=== PATIENT | female | born 1995 | race Caucasian/White ===

== ENCOUNTER 2019-11-11 13:33 | Emergency (ER) | payer SELFPAY ==
[2019-11-11 13:48] VITALS: BP 108/72; PULSE 118; RESP 16; TEMP 36.6; O2SAT 99; BMI 18.8
--- NOTE | 2019-11-11 14:16 | W.ED.NAVMDI ---
HPI - Nausea/Vomiting/Diarrhea General: Chief complaint: Nausea/Vomiting/Diarrhea Stated complaint: vomiting/abd pain Time Seen by Provider: 11/11/19 14:07 Source: patient Mode of arrival: ambulatory Limitations: no limitations History of Present Illness: HPI Narrative: Patient comes in today with complaints of nausea vomiting and diarrhea starting this morning. Patient reports last episode was about 1-1/2 hours ago. Patient appears mildly unwell. Patient does not know what she may be , patient is type I diabetic. Associated nausea: Yes Associated symtoms: Reports nausea Review of Systems General: Reports: 10 or more systems reviewed and unremarkable except in HPI and below GI: Reports: nausea and vomiting PFSH ED PFSH: Social History Smoking and tobacco status: former smoker Female Reproductive History: Date of last menstrual period: 09/18/19 Physical Exam Const: COMMON NORMALS: no apparent distress and oriented x3 GENERAL APPEARANCE: cooperative HENMT: COMMON NORMALS: normocephalic, external ears normal, EAC's normal, TM's normal bilaterally and external nose normal HEAD & SCALP: normal to inspection and normocephalic FACE & SINUS: normal facial exam NOSE: external nose normal GENERAL EAR: hearing not grossly impaired EXTERNAL EAR: Yes external ears normal EXTERNAL AUDITORY CANAL: EAC's normal TYMPANIC MEMBRANE: TM's normal bilaterally MOUTH: oral and palatal mucosa normal THROAT: posterior oropharynx normal Eye: COMMON NORMALS: PERRL and EOMs intact bilaterally PUPIL: Yes PERRL Neck/C-Spine: COMMON NORMALS: full ROM and no lymphadenopathy Lymph: LYMPHATIC: no lymphedema noted Chest: COMMONS NORMALS: inspection of chest normal and palpation of chest normal Resp: COMMON NORMALS: normal respiratory effort and clear to auscultation bilaterally AUSCULTATION: clear to auscultation bilaterally Cardio: COMMON NORMALS: regular rate and regular rhythm RATE: regular rate RHYTHM: regular rhythm GI: COMMON NORMALS: normal to inspection, nondistended, normoactive bowel sounds and non-tender : COMMON NORMALS: Yes no CVA tenderness BLADDER/KIDNEY EXAM: Yes no CVA tenderness Back/Pelvis: COMMON NORMALS: no CVA tenderness and thoracic and lumbar spine normal to inspection Extremity: COMMON NORMALS: normal to inspection GENERAL: No edema Neuro: COMMON NORMALS: oriented x3, moves all extremities and no focal motor deficits Psych: COMMON NORMALS: mental status grossly normal and cooperative Skin: COMMON NORMALS: no rashes or lesions noted GENERAL SKIN EXAM: no rashes or lesions noted Course Vital Signs: Vital signs: Vital Signs Temperature 98.1 F 11/11/19 15:34 Pulse Rate 120 H 11/11/19 15:34 Respiratory Rate 18 11/11/19 15:34 Blood Pressure 106/70 11/11/19 15:34 Pulse Oximetry 98 11/11/19 15:34 MDM - Nausea/Vomiting/Diarrhea MDM Narrative: Medical decision making narrative: Patient comes in with nausea vomiting diarrhea starting today. Exam notes abdomen soft nontender. Skin is warm and dry. Respirations are even lungs are clear to auscultation. Vital signs are normal except for mild elevation in pulse rate in the 110s. Differential diagnosis includes gastroenteritis, dehydration, diabetic ketoacidosis, UTI, . Laboratory values were significant for some mild elevation in white blood cell count and mild elevation in anion gap at 25. Urinalysis was clear except for some glucose. Blood sugar was 180s. Reviewed exam with patient recommended 1 L of IV fluids for mild dehydration. Patient was given Zofran for nausea. Patient had steady improvement after treatment. Reviewed post visit care and need for follow-up. Patient reports understanding agreed to plan. Lab Data: Labs: Lab Results 11/11/19 11/11/19 11/11/19 Range/Units 13:59 13:59 14:10 WBC 10.7 H (4.0-10.0) 10^3/ uL RBC 4.17 (4.1-5.3) 10^6/u L Hgb 13.4 (11.5-15.3) g/dL Hct 44.2 (37.0-47.0) % MCV 106.0 H (81-99) fL MCH 32.1 (28.0-34.0) pg MCHC 30.3 (30.0-36.0) g/dL RDW 13.3 (12.1-15.1) % Plt Count 94 L (130-400) 10^3/c mm MPV 12.4 H (7.4-10.4) fL Neut % (Auto) 76.6 % Lymph % (Auto) 14.8 % [place] % (Auto) 5.0 % Eos % (Auto) 2.3 % Baso % (Auto) 0.7 % Neut # (Auto) 8.2 H (1.8-7.7) 10^3/u L Lymph # (Auto) 1.6 (0.8-4.8) 10^3/u L [place] # (Auto) 0.5 (0.2-0.9) 10^3/u L Eos # (Auto) 0.3 (0.0-0.8) 10^3/u L Baso # (Auto) 0.1 (0.0-0.1) 10^3/u L Nucleated RBC % (a uto) 0 % Nucleated RBCs # 0.0 /100WBC Sodium 131 L (136-145) mmol/L Potassium 3.8 (3.5-5.1) mmol/L Chloride 95 L (98-107) mmol/L Carbon Dioxide 13 L (22-29) mmol/L Anion Gap 26.8 H (5-19) BUN 13 (6-20) mg/dL Creatinine 0.6 (0.5-0.9) mg/dL GFR Calculation 120.8 (90-130) mL/min Glucose 162 H (65-115) mg/dL Calcium 9.8 (8.5-10.5) mg/dL Total Bilirubin 0.4 (0.15-1.2) mg/dL AST 29 (0-32) U/L ALT 31 (0-33) U/L Alkaline Phosphata se 134 H (35-105) IU/L Total Protein 7.9 (6.6-8.7) g/dL Albumin 3.9 (3.5-5.2) g/dL Globulin 4.0 (1.3-4.6) g/dL Lipase 32 (13-60) U/L HCG, Qual Negative (Negative) Urine Color (Yellow) Urine Appearance (CLEAR) Urine pH (5-7) Ur Specific Gravit y (1.005-1.030) Urine Protein (Negative) Urine Glucose (UA) (Normal) Urine Ketones (Negative) Urine Blood (Negative) Urine Nitrate (Negative) Urine Bilirubin (NEGATIVE) Urine Urobilinogen (Negative) mg/dL Ur Leukocyte Georgette ase (Negative) Influenza Type A A g (Negative) POC Influenza B Ag (Negative) 11/11/19 11/11/19 Range/Units 14:10 14:25 WBC (4.0-10.0) 10^3/ uL RBC (4.1-5.3) 10^6/u L Hgb (11.5-15.3) g/dL Hct (37.0-47.0) % MCV (81-99) fL MCH (28.0-34.0) pg MCHC (30.0-36.0) g/dL RDW (12.1-15.1) % Plt Count (130-400) 10^3/c mm MPV (7.4-10.4) fL Neut % (Auto) % Lymph % (Auto) % [place] % (Auto) % Eos % (Auto) % Baso % (Auto) % Neut # (Auto) (1.8-7.7) 10^3/u L Lymph # (Auto) (0.8-4.8) 10^3/u L [place] # (Auto) (0.2-0.9) 10^3/u L Eos # (Auto) (0.0-0.8) 10^3/u L Baso # (Auto) (0.0-0.1) 10^3/u L Nucleated RBC % (a uto) % Nucleated RBCs # /100WBC Sodium (136-145) mmol/L Potassium (3.5-5.1) mmol/L Chloride (98-107) mmol/L Carbon Dioxide (22-29) mmol/L Anion Gap (5-19) BUN (6-20) mg/dL Creatinine (0.5-0.9) mg/dL GFR Calculation (90-130) mL/min Glucose (65-115) mg/dL Calcium (8.5-10.5) mg/dL Total Bilirubin (0.15-1.2) mg/dL AST (0-32) U/L ALT (0-33) U/L Alkaline Phosphata se (35-105) IU/L Total Protein (6.6-8.7) g/dL Albumin (3.5-5.2) g/dL Globulin (1.3-4.6) g/dL Lipase (13-60) U/L HCG, Qual (Negative) Urine Color Straw (Yellow) Urine Appearance Clear (CLEAR) Urine pH 5.0 (5-7) Ur Specific Gravit y 1.020 (1.005-1.030) Urine Protein Neg (Negative) Urine Glucose (UA) 4+ H (Normal) Urine Ketones 3+ H (Negative) Urine Blood Neg (Negative) Urine Nitrate Negative (Negative) Urine Bilirubin Neg (NEGATIVE) Urine Urobilinogen Norm (Negative) mg/dL Ur Leukocyte Georgette ase Negative (Negative) Influenza Type A A g Negative (Negative) POC Influenza B Ag Negative (Negative) Discharge Plan Discharge Patient Disposition: Home, Self-Care Clinical Impression: Gastroenteritis, Dehydration Type 1 diabetes mellitus Qualifiers: Diabetes mellitus complication status: without complication Qualified Code(s): E10.9 - Type 1 diabetes mellitus without complications Condition: Stable Prescriptions: New ondansetron HCl 4 mg tablet 4 mg PO Q8H PRN (Reason: nausea and vomiting) Qty: 10 RF: 0 Discharge Diet: Clear Liquid Discharge Activity: Increase activity as tolerated Patient Instructions: Gastroenteritis (ED) Activity Restrictions/Additional Instructions: Drink plenty of fluids Increase diet as tolerated Return to ER for worsening symptoms, or high fever Follow-up with primary care in three days Stand Alone Forms: Work/School Release Coding Level of Care Code ED Brand Protection Manager for Jose Fwd Exam Comprehensive
[2019-11-11 14:20] LABS: Basophils # 0.1 10^3/uL (0.0-0.1); Basophils % 0.7 %; Eosinophils # 0.3 10^3/uL (0.0-0.8); Eosinophils % 2.3 %; Hematocrit 44.2 % (37.0-47.0); Hemoglobin 13.4 g/dL (11.5-15.3); Lymphocytes # 1.6 10^3/uL (0.8-4.8); Lymphocytes % 14.8 %; Mean Corpuscular HGB Conc 30.3 g/dL (30.0-36.0); Mean Corpuscular Hemoglobin 32.1 pg (28.0-34.0); Mean Platelet Volume 12.4 fL (7.4-10.4); Monocytes # 0.5 10^3/uL (0.2-0.9); Neutrophils # 8.2 10^3/uL (1.8-7.7); Neutrophils % 76.6 %; Nucleated Red Blood Cells % 0 %; Platelet Count 94 10^3/cmm (130-400); Red Blood Count 4.17 10^6/uL (4.1-5.3); Red Cell Distribution Width 13.3 % (12.1-15.1); White Blood Count 10.7 10^3/uL (4.0-10.0)
[2019-11-11 14:29] LABS: HCG Qualitative Urine. Negative (Negative)
[2019-11-11] MEDS: ondansetron 4 MG Tablet PO (14:29)
[2019-11-11 14:37] LABS: Add Urine Microscopic? NO
[2019-11-11 14:42] LABS: Bilirubin Urine Neg (NEGATIVE); Blood Urine Neg (Negative); Glucose Urine UA 4+ (Normal); Ketones Urine 3+ (Negative); Leukocyte Esterase Urine Negative (Negative); Nitrate Urine Negative (Negative); Protein Urine Neg (Negative); Urine Appearance Clear (CLEAR); Urine Color Straw (Yellow); Urobilinogen Urine Norm (Negative)
[2019-11-11 14:48] LABS: Alanine Aminotransferase 31 U/L (0-33); Albumin Level 3.9 g/dL (3.5-5.2); Alkaline Phosphatase 134 IU/L (35-105); Aspartate Amino Transferase 29 U/L (0-32); Blood Urea Nitrogen 13 mg/dL (6-20); Calcium 9.8 mg/dL (8.5-10.5); Chloride 95 mmol/L (98-107); Glomerular Filtration Rate 120.8 mL/min (90-130); Glucose 162 mg/dL (65-115); Potassium 3.8 mmol/L (3.5-5.1); Sodium 131 mmol/L (136-145); Total Bilirubin 0.4 mg/dL (0.15-1.2); Total Protein 7.9 g/dL (6.6-8.7)
[2019-11-11 14:57] LABS: Anion Gap 26.8 (5-19); Carbon Dioxide 13 mmol/L (22-29)
[2019-11-11 14:58] LABS: Influenza A by IFA Negative (Negative); Influenza B by IFA Negative (Negative)
[2019-11-11 14:59] LABS: Lipase 32 U/L (13-60)
[2019-11-11] MEDS: sodium chloride 0.9% 1,000 ML 999 ML IV (15:28)
[2019-11-11 15:34] VITALS: BP 106/70; PULSE 120; RESP 18; TEMP 36.7; O2SAT 98
[2019-11-11 16:39] VITALS: BP 110/74; PULSE 112; RESP 18; TEMP 36.7; O2SAT 98
--- NOTE | 2019-11-11 16:44 | PC.NURSE ---
READ AND AGREE WITH ASSESSMENT
== END 2019-11-11 16:44 | disposition home or self-care (01) ==
PROVIDERS: Emergency Medicine; Emergency Provider Nurse Practitioner Family
DX: K52.9 Noninfective gastroenteritis and colitis, unspecified (principal); E86.0 Dehydration; E10.9 Type 1 diabetes mellitus without complications
CPT/HCPCS: 36415; 80053; 81003; 81025; 83690; 85025; 87804; 96360; 99283; J7030; Q0162

== ENCOUNTER 2020-01-26 20:27 | Emergency (ER) | payer SELFPAY ==
[2020-01-26 20:51] VITALS: BP 119/81; PULSE 102; RESP 14; TEMP 36.8; O2SAT 99; BMI 19.5
== END 2020-01-26 23:50 | disposition left against medical advice (07) ==
LOC: ER 20:44
PROVIDERS: Emergency Provider Nurse Practitioner Family
DX: Z53.21 Procedure and treatment not carried out due to patient leaving prior to being seen by health care provider (principal)
CPT/HCPCS: 99281

== ENCOUNTER 2020-03-18 19:38 | Emergency (ER) | payer SELFPAY ==
[2020-03-18 19:50] VITALS: BP 113/85; PULSE 111; RESP 20; TEMP 36.7; O2SAT 99; BMI 19.5
--- NOTE | 2020-03-18 20:03 | ED_ITS ---
HPI - Dental/Oral General: Chief complaint: Dental/Oral Stated complaint: dental pain Time Seen by Provider: 03/18/20 19:58 History of Present Illness: HPI Narrative: Patient has infected tooth left upper molars currently on amoxicillin 875. Patient said is not getting better as her up in a maxillary sinus area. Patient is type I diabetic sugars are staying low 200s. MD Complaint: tooth pain Teeth map: 1. Onset (ago): day(s) Duration: worsening Severity: severe Severity scale (1-10): 7 Relieving factors: nothing Context: history of dental caries Associated symptoms: Reports no associated symptoms; Denies fever(s) Review of Systems Const: Denies: fever(s), chills or body aches Eyes: Denies: change in vision or blurry vision ENMT: Reports: dental pain and other; Denies: throat pain or nasal congestion Card: Denies: chest pain or dyspnea on exertion Resp: Denies: dyspnea, productive cough or non-productive cough GI: Denies: abdominal pain, nausea or vomiting Musc: Denies: extremity pain Skin/Breast: Denies: rash Neuro: Denies: headache(s) Psych: Denies: anxiety or depression [place]/Lymph: Denies: easy bruising PFSH ED PFSH: Social History Smoking and tobacco status: never smoked Female Reproductive History: Date of last menstrual period: 03/11/20 Physical Exam Const: COMMON NORMALS: no acute distress, average body habitus and patient oriented x3 HENMT: COMMON NORMALS: normocephalic HEAD & SCALP: normal to inspection and normocephalic FACE & SINUS: normal facial exam TEETH & GINGIVA IMAGES: 1. Run tooth 1516 has swelling to the gum tender to the left maxillary sinus area Eye: COMMON NORMALS: conjunctivae normal GENERAL EYE: appearance normal, both eyes and all related structures CONJUNCTIVA: Yes conjunctivae normal Neck/C-Spine: COMMON NORMALS: no JVD Chest: COMMONS NORMALS: normal inspection of the chest Resp: COMMON NORMALS: normal respiratory effort and clear to auscultation bilaterally AUSCULTATION: clear to auscultation bilaterally Cardio: COMMON NORMALS: no JVD, regular rate and regular rhythm RATE: regular rate RHYTHM: regular rhythm GI: COMMON NORMALS: Normal to inspection, nondistended, normoactive bowel sounds present Extremity: COMMON NORMALS: normal to inspection and full ROM Neuro: COMMON NORMALS: patient oriented x3 Course Vital Signs: Vital signs: Vital Signs Temperature 98.1 F 03/18/20 19:50 Pulse Rate 111 H 03/18/20 19:50 Respiratory Rate 20 H 03/18/20 19:50 Blood Pressure 113/85 03/18/20 19:50 Pulse Oximetry 99 03/18/20 19:50 Discharge Plan Discharge Prescriptions: No Action Novolin R Regular U-100 Insuln 100 unit/mL Solution See Rx Instructions .ROUTE .COMPLEX RF: 0 Coding Level of Care Code ED Assistant Professor Of Economics for Jose Noriega
[2020-03-18 20:09] VITALS: BP 124/75; PULSE 98; RESP 15; O2SAT 98
[2020-03-18] MEDS: HYDROcodone-acetaminophen 10-325 mg Tablet 1 TAB PO (20:21)
[2020-03-18] MEDS: cefTRIAXone 1,000 mg SDV 1000 MG IM (20:22)
[2020-03-18 21:11] VITALS: BP 105/73; PULSE 92; RESP 16; TEMP 36.7; O2SAT 98
== END 2020-03-18 21:11 | disposition home or self-care (01) ==
PROVIDERS: Emergency Provider Nurse Practitioner Family
DX: K08.89 Other specified disorders of teeth and supporting structures (principal); Z79.4 Long term (current) use of insulin
CPT/HCPCS: 12345; 96372; 99281; 99283; J0696

== ENCOUNTER 2020-03-21 19:27 | Inpatient (IN) | payer SELFPAY ==
[2020-03-21 19:42] VITALS: BP 112/70; PULSE 93; RESP 16; TEMP 36.7; O2SAT 100; BMI 19.5
--- NOTE | 2020-03-21 20:02 | ED_ITS ---
HPI - Dental/Oral General: Chief complaint: Dental/Oral Stated complaint: fever, tooth pain, shaking Time Seen by Provider: 03/21/20 19:48 History of Present Illness: Associated symptoms: Denies fever(s) or odynophagia Review of Systems Const: Denies: fever(s), chills or fatigue Eyes: Denies: change in vision or eye discomfort ENMT: Denies: throat pain, odynophagia, nasal discharge or nasal congestion Card: Denies: chest pain, palpitations, edema, swelling of feet/ankles, dyspnea on exertion or orthopnea Resp: Denies: dyspnea, productive cough or non-productive cough GI: Denies: abdominal pain, nausea, vomiting, diarrhea, constipation or hematochezia : Denies: flank pain, dysuria or hematuria Musc: Denies: neck pain, back pain or extremity swelling Skin/Breast: Denies: rash or new lesions Neuro: Denies: headache(s), numbness in extremities or weakness in extremities PFSH ED PFSH: Social History Smoking and tobacco status: never smoked Female Reproductive History: Date of last menstrual period: 03/11/20 Physical Exam Const: COMMON NORMALS: patient oriented x3 HENMT: COMMON NORMALS: normocephalic HEAD & SCALP: normocephalic MOUTH: Normal oral and palatal mucosa present THROAT: posterior oropharynx normal and uvula midline Neck/C-Spine: COMMON NORMALS: supple GENERAL: Yes normal visual inspection Resp: COMMON NORMALS: normal respiratory effort, No retractions, No use of accessory muscles and clear to auscultation bilaterally AUSCULTATION: clear to auscultation bilaterally Cardio: COMMON NORMALS: regular rate, regular rhythm, S1 normal heart sound present, S2 normal heart sound present, No gallops present (Cardio), No clicks present (Cardio), No murmurs present (Cardio) and Peripheral pulses 2+ throughout RATE: regular rate RHYTHM: regular rhythm HEART SOUNDS: S1 normal heart sound present and S2 normal heart sound present PERIPHERAL PULSES: Peripheral pulses 2+ throughout GI: COMMON NORMALS: Normal to inspection, nondistended, normoactive bowel sounds present, Soft to palpation, non-tender and no masses PALPATION: Yes Soft to palpation : COMMON NORMALS: Yes no CVA tenderness BLADDER/KIDNEY EXAM: Yes no CVA tenderness Back/Pelvis: COMMON NORMALS: no CVA tenderness Neuro: COMMON NORMALS: patient oriented x3 and moves all extremities Course Vital Signs: Vital signs: Vital Signs Temperature 98.1 F 03/21/20 19:42 Pulse Rate 93 03/21/20 19:42 Respiratory Rate 16 03/21/20 19:42 Blood Pressure 112/70 03/21/20 19:42 Pulse Oximetry 100 03/21/20 19:42 Discharge Plan Discharge Prescriptions: No Action clindamycin HCl 300 mg capsule 300 mg PO TID 7 Days Qty: 21 RF: 0 hydrocodone-acetaminophen 5-325 mg tablet 1 tab PO Q6H PRN (Reason: pain) Qty: 14 RF: 0 Novolin R Regular U-100 Insuln 100 unit/mL Solution See Rx Instructions .ROUTE .COMPLEX RF: 0 Coding Level of Care Code ED Juvenile Detention Officer for Jose Noriega
--- NOTE | 2020-03-21 20:13 | ED_ITS ---
Documented by User: MADHU Light 03/22/20 17:21 HPI - General Adult General: Chief complaint: Dental/Oral Stated complaint: fever, tooth pain, shaking Time Seen by Provider: 03/21/20 19:48 History of Present Illness: HPI narrative: Patient is a 24-year-old female who comes to the ED with fever, headache and chills. Patient was seen here in the ED on March 18 due to a dental abscess and patient was put on clindamycin and discharged. Patient states that approximately a day and a half ago she started having fever, chills and a headache with pain shooting down her spine. She has had some nausea with approximately 1-2 episodes of emesis. She describes the headache is in the front/forehead area that is sharp and since shooting pain down spine. She also complains of neck stiffness. She says that light bothers her eyes. She has been taking her clindamycin as prescribed. Patient is also currently having periodic right and left upper and lower extremity shakes. Associated symptoms: Reports headache(s), nausea and vomiting; Deny chest pain, dyspnea, rash or palpitations Review of Systems Const: Reports: fever(s) and chills; Denies: fatigue Eyes: Reports: photophobia; Denies: change in vision or eye discomfort ENMT: Denies: throat pain, odynophagia, nasal discharge or nasal congestion Card: Denies: chest pain, palpitations, edema, swelling of feet/ankles, dyspnea on exertion or orthopnea Resp: Denies: dyspnea, productive cough or non-productive cough GI: Reports: nausea, vomiting and diarrhea (one episode); Denies: abdominal pain, constipation or hematochezia : Denies: flank pain, dysuria or hematuria Musc: Denies: neck pain, back pain or extremity swelling Skin/Breast: Denies: rash or new lesions Neuro: Reports: headache(s) and other (neck stiffness); Denies: numbness in extremities or weakness in extremities [facility] ED PFSH: Medical History Diabetes mellitus type 1 Surgical History History of dilation and curettage History of lymph node excision Left arm Family History Mother Hypothyroidism Father Psychiatric illness Bipolar disorder Social History Smoking and tobacco status: never smoked Alcohol intake: never Substance/Drug Use: never Household members: spouse Marital status: Female Reproductive History: Date of last menstrual period: 03/11/20 Physical Exam Const: COMMON NORMALS: patient oriented x3 and alert GENERAL APPEARANCE: cooperative, in distress and ill appearing (Patient appears ill and is shaking during history and physical exam.) HENMT: COMMON NORMALS: normocephalic HEAD & SCALP: normocephalic MOUTH: Normal oral and palatal mucosa present THROAT: posterior oropharynx normal and uvula midline Eye: COMMON NORMALS: Equal, round and reactive pupils present, EOMs intact bilaterally and conjunctivae normal CONJUNCTIVA: Yes conjunctivae normal PUPIL: Yes Equal, round and reactive pupils present DIRECT OPHTHALMOSCOPY: Yes photophobia Neck/C-Spine: COMMON NORMALS: supple GENERAL: Yes normal visual inspection Resp: COMMON NORMALS: normal respiratory effort, No retractions, No use of accessory muscles and clear to auscultation bilaterally AUSCULTATION: clear to auscultation bilaterally Cardio: COMMON NORMALS: regular rate, regular rhythm, S1 normal heart sound present, S2 normal heart sound present, No gallops present (Cardio), No clicks present (Cardio), No murmurs present (Cardio) and Peripheral pulses 2+ throughout RATE: regular rate RHYTHM: regular rhythm HEART SOUNDS: S1 normal heart sound present and S2 normal heart sound present PERIPHERAL PULSES: Peripheral pulses 2+ throughout GI: COMMON NORMALS: Normal to inspection, nondistended, normoactive bowel sounds present, Soft to palpation, non-tender and no masses PALPATION: Yes Soft to palpation : COMMON NORMALS: Yes no CVA tenderness BLADDER/KIDNEY EXAM: Yes no CVA tenderness Back/Pelvis: COMMON NORMALS: no CVA tenderness Extremity: COMMON NORMALS: normal to inspection and no pedal edema Neuro: COMMON NORMALS: patient oriented x3, CN's II-XII intact bilaterally, moves all extremities, no focal motor deficits and no sensory deficits noted SENSORIUM/ORIENTATION: Yes alert MENINGEAL SIGNS: Yes Kernig's sign presnet positive Positive Right and positive Positive Left SENSORY EXAM: Yes extremities (intact) MOTOR EXAM: 5/5 motor strength present throughout Skin: COMMON NORMALS: no rashes or lesions noted GENERAL SKIN EXAM: no rashes or lesions noted and dry skin Course Reevaluation(s): Reevaluation #1: I discussed with patient lab findings and CT reports. Patient was still having severe headache with pain shooting down her spine. I discussed with her that I would recommend getting a lumbar puncture. Patient agreed and I discussed risk and benefits with patient and she signed lumbar puncture consent form. I told Dr. Rucker about patient consenting to lumbar puncture and he will be performing procedure. Time: 03:30 Vital Signs: Vital signs: Vital Signs Temperature 99.2 F 03/22/20 16:00 Pulse Rate 111 H 03/22/20 16:00 Respiratory Rate 16 03/22/20 16:00 Blood Pressure 101/54 03/22/20 16:00 Pulse Oximetry 96 03/22/20 16:00 MDM - General Adult Lab Data: Attestation: I reviewed the patient's lab results. Labs: Lab Results 03/21/20 03/21/20 03/21/20 Range/Units 20:25 20:30 20:30 WBC 6.5 (4.0-10.0) 10^3/ uL RBC 3.98 L (4.1-5.3) 10^6/u L Hgb 12.7 (11.5-15.3) g/dL Hct 38.5 (37.0-47.0) % MCV 96.7 (81-99) fL MCH 31.9 (28.0-34.0) pg MCHC 33.0 (30.0-36.0) g/dL RDW 12.4 (12.1-15.1) % Plt Count 242 (130-400) 10^3/c mm MPV 10.8 H (7.4-10.4) fL Neut % (Auto) 64.3 % Lymph % (Auto) 23.3 % [place] % (Auto) 7.6 % Eos % (Auto) 3.5 % Baso % (Auto) 0.8 % Neut # (Auto) 4.18 (1.8-7.7) 10^3/u L Lymph # (Auto) 1.5 (0.8-4.8) 10^3/u L [place] # (Auto) 0.5 (0.2-0.9) 10^3/u L Eos # (Auto) 0.2 (0.0-0.8) 10^3/u L Baso # (Auto) 0.1 (0.0-0.1) 10^3/u L Nucleated RBC % (a uto) 0 % Nucleated RBCs # 0.0 /100WBC ESR (0-15) mm/hr PT (10.5-13.3) SECO NDS INR (0.8-1.2) APTT (23.9-36.7) SECO NDS Specimen Type Sample Site ABG pH (7.35-7.45) ABG pCO2 (35-45) mmHg ABG pO2 (80.0-100.0) mmH g ABG HCO3 (22-26) mmol/L ABG Base Excess (-2.0-2.0) mmol/ L Pop Test Hematocrit (37-47) % O2 Delivery Device Landscape Gardener ID Sodium 141 (136-145) mmol/L Potassium 3.5 (3.5-5.1) mmol/L Chloride 101 (98-107) mmol/L Carbon Dioxide 27 (22-29) mmol/L Anion Gap 16.5 (5-19) BUN 9 (6-20) mg/dL Creatinine 0.4 L (0.5-0.9) mg/dL GFR Calculation 192.9 H (90-130) mL/min Glucose 65 (65-115) mg/dL Calculated Osmolal ity 286 (285-295) mOsm/k g Lactic Acid (0.5-2.2) mmol/L Lactate (0.5-2.2) mmol/L Calcium 9.9 (8.5-10.5) mg/dL Magnesium (1.7-2.3) mg/dL Total Bilirubin 0.3 (0.15-1.2) mg/dL AST 50 H (0-32) U/L ALT 54 H (0-33) U/L Alkaline Phosphata se 113 H (35-105) IU/L C-Reactive Protein 5.7 H (0.0-4.9) mg/L Total Protein 6.8 (6.6-8.7) g/dL Albumin 4.1 (3.5-5.2) g/dL Globulin 2.7 (1.3-4.6) g/dL Lipase (13-60) U/L HCG, Qual (Negative) Urine Color Yellow (Yellow) Urine Appearance Clear (CLEAR) Urine pH 8 H (5-7) Ur Specific Gravit y 1.010 (1.005-1.030) Urine Protein Neg (Negative) Urine Glucose (UA) 2+ (Normal) Urine Ketones 1+ H (Negative) Urine Blood Neg (Negative) Urine Nitrate Negative (Negative) Urine Bilirubin Neg (NEGATIVE) Prot Sulfosalicyli c Acd Negative (Negative) Urine Urobilinogen Norm (Negative) mg/dL Ur Leukocyte Georgette ase Negative (Negative) CSF Appearance (CLEAR) CSF Color (COLORLESS) CSF WBC (0-5) /uL CSF RBC (0-0) 10^3/uL CSF Mononuclear # Auto (50-90) 10^3/uL CSF Mononuclear WB Cs % (50-90) % CSF Polynuclear WB Cs # (0-10) 10^3/uL CSF Polynuclear WB Cs % (0-10) % CSF Glucose (40-70) mg/dL CSF Total Protein (15-45) mg/dL Serum Ketones (Negative) Hepatitis A IgM Ab (Nonreactive) Hep Bs Antigen (Nonreactive) Hep Bs Antibody (0-8.5) Hep B Core Total A b (Nonreactive) Hepatitis C Antibo dy (Nonreactive) Monoscreen (Negative) 03/21/20 03/21/20 03/21/20 Range/Units 20:30 20:30 20:30 WBC (4.0-10.0) 10^3/ uL RBC (4.1-5.3) 10^6/u L Hgb (11.5-15.3) g/dL Hct (37.0-47.0) % MCV (81-99) fL MCH (28.0-34.0) pg MCHC (30.0-36.0) g/dL RDW (12.1-15.1) % Plt Count (130-400) 10^3/c mm MPV (7.4-10.4) fL Neut % (Auto) % Lymph % (Auto) % [place] % (Auto) % Eos % (Auto) % Baso % (Auto) % Neut # (Auto) (1.8-7.7) 10^3/u L Lymph # (Auto) (0.8-4.8) 10^3/u L [place] # (Auto) (0.2-0.9) 10^3/u L Eos # (Auto) (0.0-0.8) 10^3/u L Baso # (Auto) (0.0-0.1) 10^3/u L Nucleated RBC % (a uto) % Nucleated RBCs # /100WBC ESR 34 H (0-15) mm/hr PT 12.30 (10.5-13.3) SECO NDS INR 0.89 (0.8-1.2) APTT 23.0 L (23.9-36.7) SECO NDS Specimen Type Sample Site ABG pH (7.35-7.45) ABG pCO2 (35-45) mmHg ABG pO2 (80.0-100.0) mmH g ABG HCO3 (22-26) mmol/L ABG Base Excess (-2.0-2.0) mmol/ L Pop Test Hematocrit (37-47) % O2 Delivery Device Landscape Gardener ID Sodium (136-145) mmol/L Potassium (3.5-5.1) mmol/L Chloride (98-107) mmol/L Carbon Dioxide (22-29) mmol/L Anion Gap (5-19) BUN (6-20) mg/dL Creatinine (0.5-0.9) mg/dL GFR Calculation (90-130) mL/min Glucose (65-115) mg/dL Calculated Osmolal ity (285-295) mOsm/k g Lactic Acid (0.5-2.2) mmol/L Lactate 3.3 H (0.5-2.2) mmol/L Calcium (8.5-10.5) mg/dL Magnesium (1.7-2.3) mg/dL Total Bilirubin (0.15-1.2) mg/dL AST (0-32) U/L ALT (0-33) U/L Alkaline Phosphata se (35-105) IU/L C-Reactive Protein (0.0-4.9) mg/L Total Protein (6.6-8.7) g/dL Albumin (3.5-5.2) g/dL Globulin (1.3-4.6) g/dL Lipase (13-60) U/L HCG, Qual (Negative) Urine Color (Yellow) Urine Appearance (CLEAR) Urine pH (5-7) Ur Specific Gravit y (1.005-1.030) Urine Protein (Negative) Urine Glucose (UA) (Normal) Urine Ketones (Negative) Urine Blood (Negative) Urine Nitrate (Negative) Urine Bilirubin (NEGATIVE) Prot Sulfosalicyli c Acd (Negative) Urine Urobilinogen (Negative) mg/dL Ur Leukocyte Georgette ase (Negative) CSF Appearance (CLEAR) CSF Color (COLORLESS) CSF WBC (0-5) /uL CSF RBC (0-0) 10^3/uL CSF Mononuclear # Auto (50-90) 10^3/uL CSF Mononuclear WB Cs % (50-90) % CSF Polynuclear WB Cs # (0-10) 10^3/uL CSF Polynuclear WB Cs % (0-10) % CSF Glucose (40-70) mg/dL CSF Total Protein (15-45) mg/dL Serum Ketones (Negative) Hepatitis A IgM Ab (Nonreactive) Hep Bs Antigen (Nonreactive) Hep Bs Antibody (0-8.5) Hep B Core Total A b (Nonreactive) Hepatitis C Antibo dy (Nonreactive) Monoscreen (Negative) 03/21/20 03/22/20 03/22/20 Range/Units 20:30 04:00 04:00 WBC (4.0-10.0) 10^3/ uL RBC (4.1-5.3) 10^6/u L Hgb (11.5-15.3) g/dL Hct (37.0-47.0) % MCV (81-99) fL MCH (28.0-34.0) pg MCHC (30.0-36.0) g/dL RDW (12.1-15.1) % Plt Count (130-400) 10^3/c mm MPV (7.4-10.4) fL Neut % (Auto) % Lymph % (Auto) % [place] % (Auto) % Eos % (Auto) % Baso % (Auto) % Neut # (Auto) (1.8-7.7) 10^3/u L Lymph # (Auto) (0.8-4.8) 10^3/u L [place] # (Auto) (0.2-0.9) 10^3/u L Eos # (Auto) (0.0-0.8) 10^3/u L Baso # (Auto) (0.0-0.1) 10^3/u L Nucleated RBC % (a uto) % Nucleated RBCs # /100WBC ESR (0-15) mm/hr PT (10.5-13.3) SECO NDS INR (0.8-1.2) APTT (23.9-36.7) SECO NDS Specimen Type Sample Site ABG pH (7.35-7.45) ABG pCO2 (35-45) mmHg ABG pO2 (80.0-100.0) mmH g ABG HCO3 (22-26) mmol/L ABG Base Excess (-2.0-2.0) mmol/ L Pop Test Hematocrit (37-47) % O2 Delivery Device Landscape Gardener ID Sodium (136-145) mmol/L Potassium (3.5-5.1) mmol/L Chloride (98-107) mmol/L Carbon Dioxide (22-29) mmol/L Anion Gap (5-19) BUN (6-20) mg/dL Creatinine (0.5-0.9) mg/dL GFR Calculation (90-130) mL/min Glucose (65-115) mg/dL Calculated Osmolal ity (285-295) mOsm/k g Lactic Acid (0.5-2.2) mmol/L Lactate (0.5-2.2) mmol/L Calcium (8.5-10.5) mg/dL Magnesium (1.7-2.3) mg/dL Total Bilirubin (0.15-1.2) mg/dL AST (0-32) U/L ALT (0-33) U/L Alkaline Phosphata se (35-105) IU/L C-Reactive Protein (0.0-4.9) mg/L Total Protein (6.6-8.7) g/dL Albumin (3.5-5.2) g/dL Globulin (1.3-4.6) g/dL Lipase (13-60) U/L HCG, Qual (Negative) Urine Color (Yellow) Urine Appearance (CLEAR) Urine pH (5-7) Ur Specific Gravit y (1.005-1.030) Urine Protein (Negative) Urine Glucose (UA) (Normal) Urine Ketones (Negative) Urine Blood (Negative) Urine Nitrate (Negative) Urine Bilirubin (NEGATIVE) Prot Sulfosalicyli c Acd (Negative) Urine Urobilinogen (Negative) mg/dL Ur Leukocyte Georgette ase (Negative) CSF Appearance Clear Clear (CLEAR) CSF Color Colorless Colorless (COLORLESS) CSF WBC 2 1 (0-5) /uL CSF RBC 0 0 (0-0) 10^3/uL CSF Mononuclear # Auto 0.002 L 0.001 L (50-90) 10^3/uL CSF Mononuclear WB Cs % 100 H 100 H (50-90) % CSF Polynuclear WB Cs # 0.000 0.000 (0-10) 10^3/uL CSF Polynuclear WB Cs % 0 0 (0-10) % CSF Glucose 144 H (40-70) mg/dL CSF Total Protein 30 (15-45) mg/dL Serum Ketones Negative (Negative) Hepatitis A IgM Ab (Nonreactive) Hep Bs Antigen (Nonreactive) Hep Bs Antibody (0-8.5) Hep B Core Total A b (Nonreactive) Hepatitis C Antibo dy (Nonreactive) Monoscreen (Negative) 03/22/20 03/22/20 03/22/20 Range/Units 06:44 06:56 06:56 WBC (4.0-10.0) 10^3/ uL RBC (4.1-5.3) 10^6/u L Hgb (11.5-15.3) g/dL Hct (37.0-47.0) % MCV (81-99) fL MCH (28.0-34.0) pg MCHC (30.0-36.0) g/dL RDW (12.1-15.1) % Plt Count (130-400) 10^3/c mm MPV (7.4-10.4) fL Neut % (Auto) % Lymph % (Auto) % [place] % (Auto) % Eos % (Auto) % Baso % (Auto) % Neut # (Auto) (1.8-7.7) 10^3/u L Lymph # (Auto) (0.8-4.8) 10^3/u L [place] # (Auto) (0.2-0.9) 10^3/u L Eos # (Auto) (0.0-0.8) 10^3/u L Baso # (Auto) (0.0-0.1) 10^3/u L Nucleated RBC % (a uto) % Nucleated RBCs # /100WBC ESR (0-15) mm/hr PT (10.5-13.3) SECO NDS INR (0.8-1.2) APTT (23.9-36.7) SECO NDS Specimen Type Arterial Sample Site Radial, right ABG pH 7.30 L (7.35-7.45) ABG pCO2 26.9 L (35-45) mmHg ABG pO2 80.9 (80.0-100.0) mmH g ABG HCO3 13.1 L (22-26) mmol/L ABG Base Excess -11.8 L (-2.0-2.0) mmol/ L Pop Test Pos Hematocrit 39.9 (37-47) % O2 Delivery Device Room air Landscape Gardener ID [email or web address] Sodium (136-145) mmol/L Potassium (3.5-5.1) mmol/L Chloride (98-107) mmol/L Carbon Dioxide (22-29) mmol/L Anion Gap (5-19) BUN (6-20) mg/dL Creatinine (0.5-0.9) mg/dL GFR Calculation (90-130) mL/min Glucose (65-115) mg/dL Calculated Osmolal ity (285-295) mOsm/k g Lactic Acid 1.6 (0.5-2.2) mmol/L Lactate (0.5-2.2) mmol/L Calcium (8.5-10.5) mg/dL Magnesium 1.7 (1.7-2.3) mg/dL Total Bilirubin (0.15-1.2) mg/dL AST (0-32) U/L ALT (0-33) U/L Alkaline Phosphata se (35-105) IU/L C-Reactive Protein (0.0-4.9) mg/L Total Protein (6.6-8.7) g/dL Albumin (3.5-5.2) g/dL Globulin (1.3-4.6) g/dL Lipase 17 (13-60) U/L HCG, Qual (Negative) Urine Color (Yellow) Urine Appearance (CLEAR) Urine pH (5-7) Ur Specific Gravit y (1.005-1.030) Urine Protein (Negative) Urine Glucose (UA) (Normal) Urine Ketones (Negative) Urine Blood (Negative) Urine Nitrate (Negative) Urine Bilirubin (NEGATIVE) Prot Sulfosalicyli c Acd (Negative) Urine Urobilinogen (Negative) mg/dL Ur Leukocyte Georgette ase (Negative) CSF Appearance (CLEAR) CSF Color (COLORLESS) CSF WBC (0-5) /uL CSF RBC (0-0) 10^3/uL CSF Mononuclear # Auto (50-90) 10^3/uL CSF Mononuclear WB Cs % (50-90) % CSF Polynuclear WB Cs # (0-10) 10^3/uL CSF Polynuclear WB Cs % (0-10) % CSF Glucose (40-70) mg/dL CSF Total Protein (15-45) mg/dL Serum Ketones (Negative) Hepatitis A IgM Ab (Nonreactive) Hep Bs Antigen (Nonreactive) Hep Bs Antibody (0-8.5) Hep B Core Total A b (Nonreactive) Hepatitis C Antibo dy (Nonreactive) Monoscreen (Negative) 03/22/20 03/22/20 03/22/20 Range/Units 06:56 06:56 06:56 WBC (4.0-10.0) 10^3/ uL RBC (4.1-5.3) 10^6/u L Hgb (11.5-15.3) g/dL Hct (37.0-47.0) % MCV (81-99) fL MCH (28.0-34.0) pg MCHC (30.0-36.0) g/dL RDW (12.1-15.1) % Plt Count (130-400) 10^3/c mm MPV (7.4-10.4) fL Neut % (Auto) % Lymph % (Auto) % [place] % (Auto) % Eos % (Auto) % Baso % (Auto) % Neut # (Auto) (1.8-7.7) 10^3/u L Lymph # (Auto) (0.8-4.8) 10^3/u L [place] # (Auto) (0.2-0.9) 10^3/u L Eos # (Auto) (0.0-0.8) 10^3/u L Baso # (Auto) (0.0-0.1) 10^3/u L Nucleated RBC % (a uto) % Nucleated RBCs # /100WBC ESR (0-15) mm/hr PT (10.5-13.3) SECO NDS INR (0.8-1.2) APTT (23.9-36.7) SECO NDS Specimen Type Sample Site ABG pH (7.35-7.45) ABG pCO2 (35-45) mmHg ABG pO2 (80.0-100.0) mmH g ABG HCO3 (22-26) mmol/L ABG Base Excess (-2.0-2.0) mmol/ L Pop Test Hematocrit (37-47) % O2 Delivery Device Landscape Gardener ID Sodium (136-145) mmol/L Potassium (3.5-5.1) mmol/L Chloride (98-107) mmol/L Carbon Dioxide (22-29) mmol/L Anion Gap (5-19) BUN (6-20) mg/dL Creatinine (0.5-0.9) mg/dL GFR Calculation (90-130) mL/min Glucose (65-115) mg/dL Calculated Osmolal ity (285-295) mOsm/k g Lactic Acid (0.5-2.2) mmol/L Lactate (0.5-2.2) mmol/L Calcium (8.5-10.5) mg/dL Magnesium (1.7-2.3) mg/dL Total Bilirubin (0.15-1.2) mg/dL AST (0-32) U/L ALT (0-33) U/L Alkaline Phosphata se (35-105) IU/L C-Reactive Protein (0.0-4.9) mg/L Total Protein (6.6-8.7) g/dL Albumin (3.5-5.2) g/dL Globulin (1.3-4.6) g/dL Lipase (13-60) U/L HCG, Qual Negative (Negative) Urine Color (Yellow) Urine Appearance (CLEAR) Urine pH (5-7) Ur Specific Gravit y (1.005-1.030) Urine Protein (Negative) Urine Glucose (UA) (Normal) Urine Ketones (Negative) Urine Blood (Negative) Urine Nitrate (Negative) Urine Bilirubin (NEGATIVE) Prot Sulfosalicyli c Acd (Negative) Urine Urobilinogen (Negative) mg/dL Ur Leukocyte Georgette ase (Negative) CSF Appearance (CLEAR) CSF Color (COLORLESS) CSF WBC (0-5) /uL CSF RBC (0-0) 10^3/uL CSF Mononuclear # Auto (50-90) 10^3/uL CSF Mononuclear WB Cs % (50-90) % CSF Polynuclear WB Cs # (0-10) 10^3/uL CSF Polynuclear WB Cs % (0-10) % CSF Glucose (40-70) mg/dL CSF Total Protein (15-45) mg/dL Serum Ketones (Negative) Hepatitis A IgM Ab Non-reactive (Nonreactive) Hep Bs Antigen Non-reactive (Nonreactive) Hep Bs Antibody 7.9 (0-8.5) Hep B Core Total A b Non-reactive (Nonreactive) Hepatitis C Antibo dy Non-reactive (Nonreactive) Monoscreen Negative (Negative) Imaging Data^: CT Head: Attestation: I personally reviewed and interpreted this imaging study as follows: Radiologist's impression: [place] [address] CT Scan Report Signed Patient: Apryl Duran Unit #: [id number] : 1995 Age/Sex: 24 / F ADM Date: 03/21/20 Loc: ER Room/Bed: Attending Dr: Ordering Provider/Ordering MD: Sammy Hastings Date of Service: 03/21/20 Procedure(s): CT head wo con* [id number] Accession Number(s): [id number] Report Number: [id number] PROCEDURE INFORMATION: Exam: CT Head Without Contrast Exam date and time: 03/21/2020 12:38 AM Age: 24 years old Clinical indication: Pain; Headache not specified TECHNIQUE: Imaging protocol: Computed tomography of the head without contrast. Radiation optimization: All CT scans at this facility use at least one of these dose optimization techniques: automated exposure control; mA and/or kV adjustment per patient size (includes targeted exams where dose is matched to clinical indication); or iterative reconstruction. COMPARISON: No relevant prior studies available. RADIATION DOSE METRICS: Total DLP (mGy-cm): 770.89 FINDINGS: Brain: Normal. No hemorrhage. Unremarkable white matter. No mass effect. Ventricles: Normal. No ventriculomegaly. Bones/joints: No acute findings. Sinuses: Visualized sinuses are unremarkable. No fluid levels. Mastoid air cells: Visualized mastoid air cells are well aerated. Nasopharynx: Pneumatized middle turbinates. Soft tissues: Unremarkable. CT/CT head wo con* [id number] IMPRESSION: No acute intracranial abnormality. Radiation Dose CTDIVOL = (mGy): DLP = 770.89 (mGy-cm) Dictated By: Nick Parker MD Signed By: Nick Parker MD Signed Date/Time: 03/22/20323 DD/ [address]: Attestation: I personally reviewed and interpreted this imaging study as follows: Radiologist's impression: [place] [address] CT Scan Report Signed Patient: Apryl Duran Unit #: [id number] : 1995 Age/Sex: 24 / F ADM Date: 03/21/20 Loc: ER Room/Bed: Attending Dr: Ordering Provider/Ordering MD: Sammy Hastings Date of Service: 03/21/20 Procedure(s): CT neck w con* [id number] Accession Number(s): [id number] Report Number: [id number] PROCEDURE INFORMATION: Exam: CT Neck With Contrast Exam date and time: 03/21/2020 12:38 AM Age: 24 years old Clinical indication: Condition or disease; Dental caries; Additional info: Recent diagnosis of dental abscess TECHNIQUE: Imaging protocol: Computed tomography images of the neck with intravenous contrast. Radiation optimization: All CT scans at this facility use at least one of these dose optimization techniques: automated exposure control; mA and/or kV adjustment per patient size (includes targeted exams where dose is matched to clinical indication); or iterative reconstruction. Contrast material: OMNI 300; Contrast volume: 75 ml; Contrast route: INTRAVENOUS (IV); COMPARISON: CT Cervical Spine wo* [id number] 11/15/2014 4:08 AM RADIATION DOSE METRICS: Total DLP (mGy-cm): 534.74 FINDINGS: Sinuses: Mild mucosal thickening lower maxillary sinuses left greater than right. Nasal cavity: Pneumatized middle nasal turbinates. Nasopharynx: Unremarkable. Dental: Dental caries noted. Periodontal disease noted. Oropharynx: Unremarkable. No significant tonsillar enlargement. Hypopharynx: Unremarkable. Larynx: Unremarkable. Normal epiglottis. Retropharyngeal space: Unremarkable. Submandibular/Parotid glands: Normal. Glands are normal in size. Thyroid: Normal. No enlarged or calcified nodules. Lymph nodes: Unremarkable. No lymphadenopathy. Trachea: Visualized trachea is unremarkable. Lungs: Unremarkable as visualized. Bones/joints: No acute fracture. Soft tissues: Unremarkable. No significant soft tissue swelling. CT/CT neck w con* [id number] IMPRESSION: No acute findings. Radiation Dose CTDIVOL = (mGy): DLP = 534.74 (mGy-cm) Dictated By: Nick Parker MD Signed By: Nick Parker MD Signed Date/Time: 03/22/20331 DD/ 0 Discharge Plan Discharge Patient Disposition: Placed in Observation Admit Provider: Ilda Gandara Condition: Stable Discharge Date/Time: 03/22/20 10:13 Coding Level of Care Code ED Senior Mobile Solutions Architect for Chg Fwd Exam Comprehensive Documented by User: Lillie Rucker 03/22/20 06:39 HPI - General Adult General: Chief complaint: Dental/Oral Stated complaint: fever, tooth pain, shaking Time Seen by Provider: 03/21/20 19:48 PFSH ED PFSH: Medical History Diabetes mellitus type 1 Surgical History History of dilation and curettage History of lymph node excision Left arm Family History Mother Hypothyroidism Father Psychiatric illness Bipolar disorder Social History Smoking and tobacco status: never smoked Alcohol intake: never Substance/Drug Use: never Household members: spouse Marital status: Course Vital Signs: Vital signs: Vital Signs Temperature 99.2 F 03/22/20 16:00 Pulse Rate 111 H 03/22/20 16:00 Respiratory Rate 16 03/22/20 16:00 Blood Pressure 101/54 03/22/20 16:00 Pulse Oximetry 96 03/22/20 16:00 MDM - General Adult MDM Narrative: Medical decision making narrative: Patient care assumed by me at 6 AM. Patient's history provided to me is that she has had a fever, headache, chills and neck and spine pain. She began with tooth ache on March 18 or shortly there before. She was placed on oral clindamycin. Patient states she is progressed to have worsening symptoms since then. She is a type I diabetic. Patient state of all her symptoms her headache was the worst. Anytime she flexes her head she has neck pain that goes all the way down her spine. Patient's had nausea and vomiting as well. She does not report any a bdominal pain, chest pain, shortness of breath or otherwise. Her fever has been subjective. Spinal tap reveals an elevated glucose likely secondary to surgeon her glucose but there is no evidence of meningitis. CT head and neck are unremarkable. Patient has ketones in her urine and continues to have severe pain with nauseousness and vomiting. The patient has been here for approximately 11 hours and has not improved. I am concerned that she may going to diabetic ketoacidosis as she has ketones in her urine and she still feels sick and has nauseousness and is vomiting. I reviewed the case briefly with Dr. Cobos he will pass this along to the dayshift unable consult on the patient to see about admission for observation or if the patient is improved with further therapy at that time she may be discharged. Lab Data: Labs: Lab Results 03/21/20 03/21/20 03/21/20 Range/Units 20:25 20:30 20:30 WBC 6.5 (4.0-10.0) 10^3/ uL RBC 3.98 L (4.1-5.3) 10^6/u L Hgb 12.7 (11.5-15.3) g/dL Hct 38.5 (37.0-47.0) % MCV 96.7 (81-99) fL [facility] 31.9 (28.0-34.0) pg MCHC 33.0 (30.0-36.0) g/dL RDW 12.4 (12.1-15.1) % Plt Count 242 (130-400) 10^3/c mm MPV 10.8 H (7.4-10.4) fL Neut % (Auto) 64.3 % Lymph % (Auto) 23.3 % [place] % (Auto) 7.6 % Eos % (Auto) 3.5 % Baso % (Auto) 0.8 % Neut # (Auto) 4.18 (1.8-7.7) 10^3/u L Lymph # (Auto) 1.5 (0.8-4.8) 10^3/u L [place] # (Auto) 0.5 (0.2-0.9) 10^3/u L Eos # (Auto) 0.2 (0.0-0.8) 10^3/u L Baso # (Auto) 0.1 (0.0-0.1) 10^3/u L Nucleated RBC % (a uto) 0 % Nucleated RBCs # 0.0 /100WBC ESR (0-15) mm/hr PT (10.5-13.3) SECO NDS INR (0.8-1.2) APTT (23.9-36.7) SECO NDS Specimen Type Sample Site ABG pH (7.35-7.45) ABG pCO2 (35-45) mmHg ABG pO2 (80.0-100.0) mmH g ABG HCO3 (22-26) mmol/L ABG Base Excess (-2.0-2.0) mmol/ L Pop Test Hematocrit (37-47) % O2 Delivery Device Landscape Gardener ID Sodium 141 (136-145) mmol/L Potassium 3.5 (3.5-5.1) mmol/L Chloride 101 (98-107) mmol/L Carbon Dioxide 27 (22-29) mmol/L Anion Gap 16.5 (5-19) BUN 9 (6-20) mg/dL Creatinine 0.4 L (0.5-0.9) mg/dL GFR Calculation 192.9 H (90-130) mL/min Glucose 65 (65-115) mg/dL Calculated Osmolal ity 286 (285-295) mOsm/k g Lactic Acid (0.5-2.2) mmol/L Lactate (0.5-2.2) mmol/L Calcium 9.9 (8.5-10.5) mg/dL Magnesium (1.7-2.3) mg/dL Total Bilirubin 0.3 (0.15-1.2) mg/dL AST 50 H (0-32) U/L ALT 54 H (0-33) U/L Alkaline Phosphata se 113 H (35-105) IU/L C-Reactive Protein 5.7 H (0.0-4.9) mg/L Total Protein 6.8 (6.6-8.7) g/dL Albumin 4.1 (3.5-5.2) g/dL Globulin 2.7 (1.3-4.6) g/dL Lipase (13-60) U/L HCG, Qual (Negative) Urine Color Yellow (Yellow) Urine Appearance Clear (CLEAR) Urine pH 8 H (5-7) Ur Specific Gravit y 1.010 (1.005-1.030) Urine Protein Neg (Negative) Urine Glucose (UA) 2+ (Normal) Urine Ketones 1+ H (Negative) Urine Blood Neg (Negative) Urine Nitrate Negative (Negative) Urine Bilirubin Neg (NEGATIVE) Prot Sulfosalicyli c Acd Negative (Negative) Urine Urobilinogen Norm (Negative) mg/dL Ur Leukocyte Georgette ase Negative (Negative) CSF Appearance (CLEAR) CSF Color (COLORLESS) CSF WBC (0-5) /uL CSF RBC (0-0) 10^3/uL CSF Mononuclear # Auto (50-90) 10^3/uL CSF Mononuclear WB Cs % (50-90) % CSF Polynuclear WB Cs # (0-10) 10^3/uL CSF Polynuclear WB Cs % (0-10) % CSF Glucose (40-70) mg/dL CSF Total Protein (15-45) mg/dL Serum Ketones (Negative) Hepatitis A IgM Ab (Nonreactive) Hep Bs Antigen (Nonreactive) Hep Bs Antibody (0-8.5) Hep B Core Total A b (Nonreactive) Hepatitis C Antibo dy (Nonreactive) Monoscreen (Negative) 07/08/20 07/08/20 07/08/20 Range/Units 20:30 20:30 20:30 WBC (4.0-10.0) 10^3/ uL RBC (4.1-5.3) 10^6/u L Hgb (11.5-15.3) g/dL Hct (37.0-47.0) % MCV (81-99) fL MCH (28.0-34.0) pg MCHC (30.0-36.0) g/dL RDW (12.1-15.1) % Plt Count (130-400) 10^3/c mm MPV (7.4-10.4) fL Neut % (Auto) % Lymph % (Auto) % [place] % (Auto) % Eos % (Auto) % Baso % (Auto) % Neut # (Auto) (1.8-7.7) 10^3/u L Lymph # (Auto) (0.8-4.8) 10^3/u L [place] # (Auto) (0.2-0.9) 10^3/u L Eos # (Auto) (0.0-0.8) 10^3/u L Baso # (Auto) (0.0-0.1) 10^3/u L Nucleated RBC % (a uto) % Nucleated RBCs # /100WBC ESR 34 H (0-15) mm/hr PT 12.30 (10.5-13.3) SECO NDS INR 0.89 (0.8-1.2) APTT 23.0 L (23.9-36.7) SECO NDS Specimen Type Sample Site ABG pH (7.35-7.45) ABG pCO2 (35-45) mmHg ABG pO2 (80.0-100.0) mmH g ABG HCO3 (22-26) mmol/L ABG Base Excess (-2.0-2.0) mmol/ L Pop Test Hematocrit (37-47) % O2 Delivery Device Landscape Gardener ID Sodium (136-145) mmol/L Potassium (3.5-5.1) mmol/L Chloride (98-107) mmol/L Carbon Dioxide (22-29) mmol/L Anion Gap (5-19) BUN (6-20) mg/dL Creatinine (0.5-0.9) mg/dL GFR Calculation (90-130) mL/min Glucose (65-115) mg/dL Calculated Osmolal ity (285-295) mOsm/k g Lactic Acid (0.5-2.2) mmol/L Lactate 3.3 H (0.5-2.2) mmol/L Calcium (8.5-10.5) mg/dL Magnesium (1.7-2.3) mg/dL Total Bilirubin (0.15-1.2) mg/dL AST (0-32) U/L ALT (0-33) U/L Alkaline Phosphata se (35-105) IU/L C-Reactive Protein (0.0-4.9) mg/L Total Protein (6.6-8.7) g/dL Albumin (3.5-5.2) g/dL Globulin (1.3-4.6) g/dL Lipase (13-60) U/L HCG, Qual (Negative) Urine Color (Yellow) Urine Appearance (CLEAR) Urine pH (5-7) Ur Specific Gravit y (1.005-1.030) Urine Protein (Negative) Urine Glucose (UA) (Normal) Urine Ketones (Negative) Urine Blood (Negative) Urine Nitrate (Negative) Urine Bilirubin (NEGATIVE) Prot Sulfosalicyli c Acd (Negative) Urine Urobilinogen (Negative) mg/dL Ur Leukocyte Georgette ase (Negative) CSF Appearance (CLEAR) CSF Color (COLORLESS) CSF WBC (0-5) /uL CSF RBC (0-0) 10^3/uL CSF Mononuclear # Auto (50-90) 10^3/uL CSF Mononuclear WB Cs % (50-90) % CSF Polynuclear WB Cs # (0-10) 10^3/uL CSF Polynuclear WB Cs % (0-10) % CSF Glucose (40-70) mg/dL CSF Total Protein (15-45) mg/dL Serum Ketones (Negative) Hepatitis A IgM Ab (Nonreactive) Hep Bs Antigen (Nonreactive) Hep Bs Antibody (0-8.5) Hep B Core Total A b (Nonreactive) Hepatitis C Antibo dy (Nonreactive) Monoscreen (Negative) 03/21/20 03/22/20 03/22/20 Range/Units 20:30 04:00 04:00 WBC (4.0-10.0) 10^3/ uL RBC (4.1-5.3) 10^6/u L Hgb (11.5-15.3) g/dL Hct (37.0-47.0) % MCV (81-99) fL MCH (28.0-34.0) pg MCHC (30.0-36.0) g/dL RDW (12.1-15.1) % Plt Count (130-400) 10^3/c mm MPV (7.4-10.4) fL Neut % (Auto) % Lymph % (Auto) % [place] % (Auto) % Eos % (Auto) % Baso % (Auto) % Neut # (Auto) (1.8-7.7) 10^3/u L Lymph # (Auto) (0.8-4.8) 10^3/u L [place] # (Auto) (0.2-0.9) 10^3/u L Eos # (Auto) (0.0-0.8) 10^3/u L Baso # (Auto) (0.0-0.1) 10^3/u L Nucleated RBC % (a uto) % Nucleated RBCs # /100WBC ESR (0-15) mm/hr PT (10.5-13.3) SECO NDS INR (0.8-1.2) APTT (23.9-36.7) SECO NDS Specimen Type Sample Site ABG pH (7.35-7.45) ABG pCO2 (35-45) mmHg ABG pO2 (80.0-100.0) mmH g ABG HCO3 (22-26) mmol/L ABG Base Excess (-2.0-2.0) mmol/ L Pop Test Hematocrit (37-47) % O2 Delivery Device Landscape Gardener ID Sodium (136-145) mmol/L Potassium (3.5-5.1) mmol/L Chloride (98-107) mmol/L Carbon Dioxide (22-29) mmol/L Anion Gap (5-19) BUN (6-20) mg/dL Creatinine (0.5-0.9) mg/dL GFR Calculation (90-130) mL/min Glucose (65-115) mg/dL Calculated Osmolal ity (285-295) mOsm/k g Lactic Acid (0.5-2.2) mmol/L Lactate (0.5-2.2) mmol/L Calcium (8.5-10.5) mg/dL Magnesium (1.7-2.3) mg/dL Total Bilirubin (0.15-1.2) mg/dL AST (0-32) U/L ALT (0-33) U/L Alkaline Phosphata se (35-105) IU/L C-Reactive Protein (0.0-4.9) mg/L Total Protein (6.6-8.7) g/dL Albumin (3.5-5.2) g/dL Globulin (1.3-4.6) g/dL Lipase (13-60) U/L HCG, Qual (Negative) Urine Color (Yellow) Urine Appearance (CLEAR) Urine pH (5-7) Ur Specific Gravit y (1.005-1.030) Urine Protein (Negative) Urine Glucose (UA) (Normal) Urine Ketones (Negative) Urine Blood (Negative) Urine Nitrate (Negative) Urine Bilirubin (NEGATIVE) Prot Sulfosalicyli c Acd (Negative) Urine Urobilinogen (Negative) mg/dL Ur Leukocyte Georgette ase (Negative) CSF Appearance Clear Clear (CLEAR) CSF Color Colorless Colorless (COLORLESS) CSF WBC 2 1 (0-5) /uL CSF RBC 0 0 (0-0) 10^3/uL CSF Mononuclear # Auto 0.002 L 0.001 L (50-90) 10^3/uL CSF Mononuclear WB Cs % 100 H 100 H (50-90) % CSF Polynuclear WB Cs # 0.000 0.000 (0-10) 10^3/uL CSF Polynuclear WB Cs % 0 0 (0-10) % CSF Glucose 144 H (40-70) mg/dL CSF Total Protein 30 (15-45) mg/dL Serum Ketones Negative (Negative) Hepatitis A IgM Ab (Nonreactive) Hep Bs Antigen (Nonreactive) Hep Bs Antibody (0-8.5) Hep B Core Total A b (Nonreactive) Hepatitis C Antibo dy (Nonreactive) Monoscreen (Negative) 03/22/20 03/22/20 03/22/20 Range/Units 06:44 06:56 06:56 WBC (4.0-10.0) 10^3/ uL RBC (4.1-5.3) 10^6/u L Hgb (11.5-15.3) g/dL Hct (37.0-47.0) % MCV (81-99) fL MCH (28.0-34.0) pg MCHC (30.0-36.0) g/dL RDW (12.1-15.1) % Plt Count (130-400) 10^3/c mm MPV (7.4-10.4) fL Neut % (Auto) % Lymph % (Auto) % [place] % (Auto) % Eos % (Auto) % Baso % (Auto) % Neut # (Auto) (1.8-7.7) 10^3/u L Lymph # (Auto) (0.8-4.8) 10^3/u L [place] # (Auto) (0.2-0.9) 10^3/u L Eos # (Auto) (0.0-0.8) 10^3/u L Baso # (Auto) (0.0-0.1) 10^3/u L Nucleated RBC % (a uto) % Nucleated RBCs # /100WBC ESR (0-15) mm/hr PT (10.5-13.3) SECO NDS INR (0.8-1.2) APTT (23.9-36.7) SECO NDS Specimen Type Arterial Sample Site Radial, right ABG pH 7.30 L (7.35-7.45) ABG pCO2 26.9 L (35-45) mmHg ABG pO2 80.9 (80.0-100.0) mmH g ABG HCO3 13.1 L (22-26) mmol/L ABG Base Excess -11.8 L (-2.0-2.0) mmol/ L Pop Test Pos Hematocrit 39.9 (37-47) % O2 Delivery Device Room air Landscape Gardener ID [email or web address] Sodium (136-145) mmol/L Potassium (3.5-5.1) mmol/L Chloride (98-107) mmol/L Carbon Dioxide (22-29) mmol/L Anion Gap (5-19) BUN (6-20) mg/dL Creatinine (0.5-0.9) mg/dL GFR Calculation (90-130) mL/min Glucose (65-115) mg/dL Calculated Osmolal ity (285-295) mOsm/k g Lactic Acid 1.6 (0.5-2.2) mmol/L Lactate (0.5-2.2) mmol/L Calcium (8.5-10.5) mg/dL Magnesium 1.7 (1.7-2.3) mg/dL Total Bilirubin (0.15-1.2) mg/dL AST (0-32) U/L ALT (0-33) U/L Alkaline Phosphata se (35-105) IU/L C-Reactive Protein (0.0-4.9) mg/L Total Protein (6.6-8.7) g/dL Albumin (3.5-5.2) g/dL Globulin (1.3-4.6) g/dL Lipase 17 (13-60) U/L HCG, Qual (Negative) Urine Color (Yellow) Urine Appearance (CLEAR) Urine pH (5-7) Ur Specific Gravit y (1.005-1.030) Urine Protein (Negative) Urine Glucose (UA) (Normal) Urine Ketones (Negative) Urine Blood (Negative) Urine Nitrate (Negative) Urine Bilirubin (NEGATIVE) Prot Sulfosalicyli c Acd (Negative) Urine Urobilinogen (Negative) mg/dL Ur Leukocyte Georgette ase (Negative) CSF Appearance (CLEAR) CSF Color (COLORLESS) CSF WBC (0-5) /uL CSF RBC (0-0) 10^3/uL CSF Mononuclear # Auto (50-90) 10^3/uL CSF Mononuclear WB Cs % (50-90) % CSF Polynuclear WB Cs # (0-10) 10^3/uL CSF Polynuclear WB Cs % (0-10) % CSF Glucose (40-70) mg/dL CSF Total Protein (15-45) mg/dL Serum Ketones (Negative) Hepatitis A IgM Ab (Nonreactive) Hep Bs Antigen (Nonreactive) Hep Bs Antibody (0-8.5) Hep B Core Total A b (Nonreactive) Hepatitis C Antibo dy (Nonreactive) Monoscreen (Negative) 03/22/20 03/22/20 03/22/20 Range/Units 06:56 06:56 06:56 WBC (4.0-10.0) 10^3/ uL RBC (4.1-5.3) 10^6/u L Hgb (11.5-15.3) g/dL Hct (37.0-47.0) % MCV (81-99) fL MCH (28.0-34.0) pg MCHC (30.0-36.0) g/dL RDW (12.1-15.1) % Plt Count (130-400) 10^3/c mm MPV (7.4-10.4) fL Neut % (Auto) % Lymph % (Auto) % [place] % (Auto) % Eos % (Auto) % Baso % (Auto) % Neut # (Auto) (1.8-7.7) 10^3/u L Lymph # (Auto) (0.8-4.8) 10^3/u L [place] # (Auto) (0.2-0.9) 10^3/u L Eos # (Auto) (0.0-0.8) 10^3/u L Baso # (Auto) (0.0-0.1) 10^3/u L Nucleated RBC % (a uto) % Nucleated RBCs # /100WBC ESR (0-15) mm/hr PT (10.5-13.3) SECO NDS INR (0.8-1.2) APTT (23.9-36.7) SECO NDS Specimen Type Sample Site ABG pH (7.35-7.45) ABG pCO2 (35-45) mmHg ABG pO2 (80.0-100.0) mmH g ABG HCO3 (22-26) mmol/L ABG Base Excess (-2.0-2.0) mmol/ L Pop Test Hematocrit (37-47) % O2 Delivery Device Landscape Gardener ID Sodium (136-145) mmol/L Potassium (3.5-5.1) mmol/L Chloride (98-107) mmol/L Carbon Dioxide (22-29) mmol/L Anion Gap (5-19) BUN (6-20) mg/dL Creatinine (0.5-0.9) mg/dL GFR Calculation (90-130) mL/min Glucose (65-115) mg/dL Calculated Osmolal ity (285-295) mOsm/k g Lactic Acid (0.5-2.2) mmol/L Lactate (0.5-2.2) mmol/L Calcium (8.5-10.5) mg/dL Magnesium (1.7-2.3) mg/dL Total Bilirubin (0.15-1.2) mg/dL AST (0-32) U/L ALT (0-33) U/L Alkaline Phosphata se (35-105) IU/L C-Reactive Protein (0.0-4.9) mg/L Total Protein (6.6-8.7) g/dL Albumin (3.5-5.2) g/dL Globulin (1.3-4.6) g/dL Lipase (13-60) U/L HCG, Qual Negative (Negative) Urine Color (Yellow) Urine Appearance (CLEAR) Urine pH (5-7) Ur Specific Gravit y (1.005-1.030) Urine Protein (Negative) Urine Glucose (UA) (Normal) Urine Ketones (Negative) Urine Blood (Negative) Urine Nitrate (Negative) Urine Bilirubin (NEGATIVE) Prot Sulfosalicyli c Acd (Negative) Urine Urobilinogen (Negative) mg/dL Ur Leukocyte Georgette ase (Negative) CSF Appearance (CLEAR) CSF Color (COLORLESS) CSF WBC (0-5) /uL CSF RBC (0-0) 10^3/uL CSF Mononuclear # Auto (50-90) 10^3/uL CSF Mononuclear WB Cs % (50-90) % CSF Polynuclear WB Cs # (0-10) 10^3/uL CSF Polynuclear WB Cs % (0-10) % CSF Glucose (40-70) mg/dL CSF Total Protein (15-45) mg/dL Serum Ketones (Negative) Hepatitis A IgM Ab Non-reactive (Nonreactive) Hep Bs Antigen Non-reactive (Nonreactive) Hep Bs Antibody 7.9 (0-8.5) Hep B Core Total A b Non-reactive (Nonreactive) Hepatitis C Antibo dy Non-reactive (Nonreactive) Monoscreen Negative (Negative) Discharge Plan Discharge Patient Disposition: Placed in Observation Admit Provider: Ilda Gandara Condition: Stable Discharge Date/Time: 03/22/20 10:13 Coding Level of Care Code ED Senior Mobile Solutions Architect for Chg Fwd Exam Comprehensive Documented by User: Jasmeet Jones DO 03/22/20 08:52 HPI - General Adult General: Chief complaint: Dental/Oral Stated complaint: fever, tooth pain, shaking Time Seen by Provider: 03/21/20 19:48 PFSH ED PFSH: Medical History Diabetes mellitus type 1 Surgical History History of dilation and curettage History of lymph node excision Left arm Family History Mother Hypothyroidism Father Psychiatric illness Bipolar disorder Social History Smoking and tobacco status: never smoked Alcohol intake: never Substance/Drug Use: never Household members: spouse Marital status: Course Vital Signs: Vital signs: Vital Signs Temperature 99.2 F 03/22/20 16:00 Pulse Rate 111 H 03/22/20 16:00 Respiratory Rate 16 03/22/20 16:00 Blood Pressure 101/54 03/22/20 16:00 Pulse Oximetry 96 03/22/20 16:00 MDM - General Adult Lab Data: Labs: Lab Results 03/21/20 03/21/20 03/21/20 Range/Units 20:25 20:30 20:30 WBC 6.5 (4.0-10.0) 10^3/ uL RBC 3.98 L (4.1-5.3) 10^6/u L Hgb 12.7 (11.5-15.3) g/dL Hct 38.5 (37.0-47.0) % MCV 96.7 (81-99) fL MCH 31.9 (28.0-34.0) pg MCHC 33.0 (30.0-36.0) g/dL RDW 12.4 (12.1-15.1) % Plt Count 242 (130-400) 10^3/c mm MPV 10.8 H (7.4-10.4) fL Neut % (Auto) 64.3 % Lymph % (Auto) 23.3 % [place] % (Auto) 7.6 % Eos % (Auto) 3.5 % Baso % (Auto) 0.8 % Neut # (Auto) 4.18 (1.8-7.7) 10^3/u L Lymph # (Auto) 1.5 (0.8-4.8) 10^3/u L [place] # (Auto) 0.5 (0.2-0.9) 10^3/u L Eos # (Auto) 0.2 (0.0-0.8) 10^3/u L Baso # (Auto) 0.1 (0.0-0.1) 10^3/u L Nucleated RBC % (a uto) 0 % Nucleated RBCs # 0.0 /100WBC ESR (0-15) mm/hr PT (10.5-13.3) SECO NDS INR (0.8-1.2) APTT (23.9-36.7) SECO NDS Specimen Type Sample Site ABG pH (7.35-7.45) ABG pCO2 (35-45) mmHg ABG pO2 (80.0-100.0) mmH g ABG HCO3 (22-26) mmol/L ABG Base Excess (-2.0-2.0) mmol/ L Pop Test Hematocrit (37-47) % O2 Delivery Device Landscape Gardener ID Sodium 141 (136-145) mmol/L Potassium 3.5 (3.5-5.1) mmol/L Chloride 101 (98-107) mmol/L Carbon Dioxide 27 (22-29) mmol/L Anion Gap 16.5 (5-19) BUN 9 (6-20) mg/dL Creatinine 0.4 L (0.5-0.9) mg/dL GFR Calculation 192.9 H (90-130) mL/min Glucose 65 (65-115) mg/dL Calculated Osmolal ity 286 (285-295) mOsm/k g Lactic Acid (0.5-2.2) mmol/L Lactate (0.5-2.2) mmol/L Calcium 9.9 (8.5-10.5) mg/dL Magnesium (1.7-2.3) mg/dL Total Bilirubin 0.3 (0.15-1.2) mg/dL AST 50 H (0-32) U/L ALT 54 H (0-33) U/L Alkaline Phosphata se 113 H (35-105) IU/L C-Reactive Protein 5.7 H (0.0-4.9) mg/L Total Protein 6.8 (6.6-8.7) g/dL Albumin 4.1 (3.5-5.2) g/dL Globulin 2.7 (1.3-4.6) g/dL Lipase (13-60) U/L HCG, Qual (Negative) Urine Color Yellow (Yellow) Urine Appearance Clear (CLEAR) Urine pH 8 H (5-7) Ur Specific Gravit y 1.010 (1.005-1.030) Urine Protein Neg (Negative) Urine Glucose (UA) 2+ (Normal) Urine Ketones 1+ H (Negative) Urine Blood Neg (Negative) Urine Nitrate Negative (Negative) Urine Bilirubin Neg (NEGATIVE) Prot Sulfosalicyli c Acd Negative (Negative) Urine Urobilinogen Norm (Negative) mg/dL Ur Leukocyte Georgette ase Negative (Negative) CSF Appearance (CLEAR) CSF Color (COLORLESS) CSF WBC (0-5) /uL CSF RBC (0-0) 10^3/uL CSF Mononuclear # Auto (50-90) 10^3/uL CSF Mononuclear WB Cs % (50-90) % CSF Polynuclear WB Cs # (0-10) 10^3/uL CSF Polynuclear WB Cs % (0-10) % CSF Glucose (40-70) mg/dL CSF Total Protein (15-45) mg/dL Serum Ketones (Negative) Hepatitis A IgM Ab (Nonreactive) Hep Bs Antigen (Nonreactive) Hep Bs Antibody (0-8.5) Hep B Core Total A b (Nonreactive) Hepatitis C Antibo dy (Nonreactive) Monoscreen (Negative) 03/21/20 03/21/20 03/21/20 Range/Units 20:30 20:30 20:30 WBC (4.0-10.0) 10^3/ uL RBC (4.1-5.3) 10^6/u L Hgb (11.5-15.3) g/dL Hct (37.0-47.0) % MCV (81-99) fL MCH (28.0-34.0) pg MCHC (30.0-36.0) g/dL RDW (12.1-15.1) % Plt Count (130-400) 10^3/c mm MPV (7.4-10.4) fL Neut % (Auto) % Lymph % (Auto) % [place] % (Auto) % Eos % (Auto) % Baso % (Auto) % Neut # (Auto) (1.8-7.7) 10^3/u L Lymph # (Auto) (0.8-4.8) 10^3/u L [place] # (Auto) (0.2-0.9) 10^3/u L Eos # (Auto) (0.0-0.8) 10^3/u L Baso # (Auto) (0.0-0.1) 10^3/u L Nucleated RBC % (a uto) % Nucleated RBCs # /100WBC ESR 34 H (0-15) mm/hr PT 12.30 (10.5-13.3) SECO NDS INR 0.89 (0.8-1.2) APTT 23.0 L (23.9-36.7) SECO NDS Specimen Type Sample Site ABG pH (7.35-7.45) ABG pCO2 (35-45) mmHg ABG pO2 (80.0-100.0) mmH g ABG HCO3 (22-26) mmol/L ABG Base Excess (-2.0-2.0) mmol/ L Pop Test Hematocrit (37-47) % O2 Delivery Device Landscape Gardener ID Sodium (136-145) mmol/L Potassium (3.5-5.1) mmol/L Chloride (98-107) mmol/L Carbon Dioxide (22-29) mmol/L Anion Gap (5-19) BUN (6-20) mg/dL Creatinine (0.5-0.9) mg/dL GFR Calculation (90-130) mL/min Glucose (65-115) mg/dL Calculated Osmolal ity (285-295) mOsm/k g Lactic Acid (0.5-2.2) mmol/L Lactate 3.3 H (0.5-2.2) mmol/L Calcium (8.5-10.5) mg/dL Magnesium (1.7-2.3) mg/dL Total Bilirubin (0.15-1.2) mg/dL AST (0-32) U/L ALT (0-33) U/L Alkaline Phosphata se (35-105) IU/L C-Reactive Protein (0.0-4.9) mg/L Total Protein (6.6-8.7) g/dL Albumin (3.5-5.2) g/dL Globulin (1.3-4.6) g/dL Lipase (13-60) U/L HCG, Qual (Negative) Urine Color (Yellow) Urine Appearance (CLEAR) Urine pH (5-7) Ur Specific Gravit y (1.005-1.030) Urine Protein (Negative) Urine Glucose (UA) (Normal) Urine Ketones (Negative) Urine Blood (Negative) Urine Nitrate (Negative) Urine Bilirubin (NEGATIVE) Prot Sulfosalicyli c Acd (Negative) Urine Urobilinogen (Negative) mg/dL Ur Leukocyte Georgette ase (Negative) CSF Appearance (CLEAR) CSF Color (COLORLESS) CSF WBC (0-5) /uL CSF RBC (0-0) 10^3/uL CSF Mononuclear # Auto (50-90) 10^3/uL CSF Mononuclear WB Cs % (50-90) % CSF Polynuclear WB Cs # (0-10) 10^3/uL CSF Polynuclear WB Cs % (0-10) % CSF Glucose (40-70) mg/dL CSF Total Protein (15-45) mg/dL Serum Ketones (Negative) Hepatitis A IgM Ab (Nonreactive) Hep Bs Antigen (Nonreactive) Hep Bs Antibody (0-8.5) Hep B Core Total A b (Nonreactive) Hepatitis C Antibo dy (Nonreactive) Monoscreen (Negative) 03/21/20 03/22/20 03/22/20 Range/Units 20:30 04:00 04:00 WBC (4.0-10.0) 10^3/ uL RBC (4.1-5.3) 10^6/u L Hgb (11.5-15.3) g/dL Hct (37.0-47.0) % MCV (81-99) fL MCH (28.0-34.0) pg MCHC (30.0-36.0) g/dL RDW (12.1-15.1) % Plt Count (130-400) 10^3/c mm MPV (7.4-10.4) fL Neut % (Auto) % Lymph % (Auto) % [place] % (Auto) % Eos % (Auto) % Baso % (Auto) % Neut # (Auto) (1.8-7.7) 10^3/u L Lymph # (Auto) (0.8-4.8) 10^3/u L [place] # (Auto) (0.2-0.9) 10^3/u L Eos # (Auto) (0.0-0.8) 10^3/u L Baso # (Auto) (0.0-0.1) 10^3/u L Nucleated RBC % (a uto) % Nucleated RBCs # /100WBC ESR (0-15) mm/hr PT (10.5-13.3) SECO NDS INR (0.8-1.2) APTT (23.9-36.7) SECO NDS Specimen Type Sample Site ABG pH (7.35-7.45) ABG pCO2 (35-45) mmHg ABG pO2 (80.0-100.0) mmH g ABG HCO3 (22-26) mmol/L ABG Base Excess (-2.0-2.0) mmol/ L Pop Test Hematocrit (37-47) % O2 Delivery Device Landscape [employer]ener ID Sodium (136-145) mmol/L Potassium (3.5-5.1) mmol/L Chloride (98-107) mmol/L Carbon Dioxide (22-29) mmol/L Anion Gap (5-19) BUN (6-20) mg/dL Creatinine (0.5-0.9) mg/dL GFR Calculation (90-130) mL/min Glucose (65-115) mg/dL Calculated Osmolal ity (285-295) mOsm/k g Lactic Acid (0.5-2.2) mmol/L Lactate (0.5-2.2) mmol/L Calcium (8.5-10.5) mg/dL Magnesium (1.7-2.3) mg/dL Total Bilirubin (0.15-1.2) mg/dL AST (0-32) U/L ALT (0-33) U/L Alkaline Phosphata se (35-105) IU/L C-Reactive Protein (0.0-4.9) mg/L Total Protein (6.6-8.7) g/dL Albumin (3.5-5.2) g/dL Globulin (1.3-4.6) g/dL Lipase (13-60) U/L HCG, Qual (Negative) Urine Color (Yellow) Urine Appearance (CLEAR) Urine pH (5-7) Ur Specific Gravit y (1.005-1.030) Urine Protein (Negative) Urine Glucose (UA) (Normal) Urine Ketones (Negative) Urine Blood (Negative) Urine Nitrate (Negative) Urine Bilirubin (NEGATIVE) Prot Sulfosalicyli c Acd (Negative) Urine Urobilinogen (Negative) mg/dL Ur Leukocyte Georgette ase (Negative) CSF Appearance Clear Clear (CLEAR) CSF Color Colorless Colorless (COLORLESS) CSF WBC 2 1 (0-5) /uL CSF RBC 0 0 (0-0) 10^3/uL CSF Mononuclear # Auto 0.002 L 0.001 L (50-90) 10^3/uL CSF Mononuclear WB Cs % 100 H 100 H (50-90) % CSF Polynuclear WB Cs # 0.000 0.000 (0-10) 10^3/uL CSF Polynuclear WB Cs % 0 0 (0-10) % CSF Glucose 144 H (40-70) mg/dL CSF Total Protein 30 (15-45) mg/dL Serum Ketones Negative (Negative) Hepatitis A IgM Ab (Nonreactive) Hep Bs Antigen (Nonreactive) Hep Bs Antibody (0-8.5) Hep B Core Total A b (Nonreactive) Hepatitis C Antibo dy (Nonreactive) Monoscreen (Negative) 03/22/20 03/22/20 03/22/20 Range/Units 06:44 06:56 06:56 WBC (4.0-10.0) 10^3/ uL RBC (4.1-5.3) 10^6/u L Hgb (11.5-15.3) g/dL Hct (37.0-47.0) % MCV (81-99) fL MCH (28.0-34.0) pg MCHC (30.0-36.0) g/dL RDW (12.1-15.1) % Plt Count (130-400) 10^3/c mm MPV (7.4-10.4) fL Neut % (Auto) % Lymph % (Auto) % [place] % (Auto) % Eos % (Auto) % Baso % (Auto) % Neut # (Auto) (1.8-7.7) 10^3/u L Lymph # (Auto) (0.8-4.8) 10^3/u L [place] # (Auto) (0.2-0.9) 10^3/u L Eos # (Auto) (0.0-0.8) 10^3/u L Baso # (Auto) (0.0-0.1) 10^3/u L Nucleated RBC % (a uto) % Nucleated RBCs # /100WBC ESR (0-15) mm/hr PT (10.5-13.3) SECO NDS INR (0.8-1.2) APTT (23.9-36.7) SECO NDS Specimen Type Arterial Sample Site Radial, right ABG pH 7.30 L (7.35-7.45) ABG pCO2 26.9 L (35-45) mmHg ABG pO2 80.9 (80.0-100.0) mmH g ABG HCO3 13.1 L (22-26) mmol/L ABG Base Excess -11.8 L (-2.0-2.0) mmol/ L Pop Test Pos Hematocrit 39.9 (37-47) % O2 Delivery Device Room air Landscape [employer]ener ID [email or web address] Sodium (136-145) mmol/L Potassium (3.5-5.1) mmol/L Chloride (98-107) mmol/L Carbon Dioxide (22-29) mmol/L Anion Gap (5-19) BUN (6-20) mg/dL Creatinine (0.5-0.9) mg/dL GFR Calculation (90-130) mL/min Glucose (65-115) mg/dL Calculated Osmolal ity (285-295) mOsm/k g Lactic Acid 1.6 (0.5-2.2) mmol/L Lactate (0.5-2.2) mmol/L Calcium (8.5-10.5) mg/dL Magnesium 1.7 (1.7-2.3) mg/dL Total Bilirubin (0.15-1.2) mg/dL AST (0-32) U/L ALT (0-33) U/L Alkaline Phosphata se (35-105) IU/L C-Reactive Protein (0.0-4.9) mg/L Total Protein (6.6-8.7) g/dL Albumin (3.5-5.2) g/dL Globulin (1.3-4.6) g/dL Lipase 17 (13-60) U/L HCG, Qual (Negative) Urine Color (Yellow) Urine Appearance (CLEAR) Urine pH (5-7) Ur Specific Gravit y (1.005-1.030) Urine Protein (Negative) Urine Glucose (UA) (Normal) Urine Ketones (Negative) Urine Blood (Negative) Urine Nitrate (Negative) Urine Bilirubin (NEGATIVE) Prot Sulfosalicyli c Acd (Negative) Urine Urobilinogen (Negative) mg/dL Ur Leukocyte Georgette ase (Negative) CSF Appearance (CLEAR) CSF Color (COLORLESS) CSF WBC (0-5) /uL CSF RBC (0-0) 10^3/uL CSF Mononuclear # Auto (50-90) 10^3/uL CSF Mononuclear WB Cs % (50-90) % CSF Polynuclear WB Cs # (0-10) 10^3/uL CSF Polynuclear WB Cs % (0-10) % CSF Glucose (40-70) mg/dL CSF Total Protein (15-45) mg/dL Serum Ketones (Negative) Hepatitis A IgM Ab (Nonreactive) Hep Bs Antigen (Nonreactive) Hep Bs Antibody (0-8.5) Hep B Core Total A b (Nonreactive) Hepatitis C Antibo dy (Nonreactive) Monoscreen (Negative) 03/22/20 03/22/20 03/22/20 Range/Units 06:56 06:56 06:56 WBC (4.0-10.0) 10^3/ uL RBC (4.1-5.3) 10^6/u L Hgb (11.5-15.3) g/dL Hct (37.0-47.0) % MCV (81-99) fL MCH (28.0-34.0) pg MCHC (30.0-36.0) g/dL RDW (12.1-15.1) % Plt Count (130-400) 10^3/c mm MPV (7.4-10.4) fL Neut % (Auto) % Lymph % (Auto) % [place] % (Auto) % Eos % (Auto) % Baso % (Auto) % Neut # (Auto) (1.8-7.7) 10^3/u L Lymph # (Auto) (0.8-4.8) 10^3/u L [place] # (Auto) (0.2-0.9) 10^3/u L Eos # (Auto) (0.0-0.8) 10^3/u L Baso # (Auto) (0.0-0.1) 10^3/u L Nucleated RBC % (a uto) % Nucleated RBCs # /100WBC ESR (0-15) mm/hr PT (10.5-13.3) SECO NDS INR (0.8-1.2) APTT (23.9-36.7) SECO NDS Specimen Type Sample Site ABG pH (7.35-7.45) ABG pCO2 (35-45) mmHg ABG pO2 (80.0-100.0) mmH g ABG HCO3 (22-26) mmol/L ABG Base Excess (-2.0-2.0) mmol/ L Pop Test Hematocrit (37-47) % O2 Delivery Device Landscape [employer]ener ID Sodium (136-145) mmol/L Potassium (3.5-5.1) mmol/L Chloride (98-107) mmol/L Carbon Dioxide (22-29) mmol/L Anion Gap (5-19) BUN (6-20) mg/dL Creatinine (0.5-0.9) mg/dL GFR Calculation (90-130) mL/min Glucose (65-115) mg/dL Calculated Osmolal ity (285-295) mOsm/k g Lactic Acid (0.5-2.2) mmol/L Lactate (0.5-2.2) mmol/L Calcium (8.5-10.5) mg/dL Magnesium (1.7-2.3) mg/dL Total Bilirubin (0.15-1.2) mg/dL AST (0-32) U/L ALT (0-33) U/L Alkaline Phosphata se (35-105) IU/L C-Reactive Protein (0.0-4.9) mg/L Total Protein (6.6-8.7) g/dL Albumin (3.5-5.2) g/dL Globulin (1.3-4.6) g/dL Lipase (13-60) U/L HCG, Qual Negative (Negative) Urine Color (Yellow) Urine Appearance (CLEAR) Urine pH (5-7) Ur Specific Gravit y (1.005-1.030) Urine Protein (Negative) Urine Glucose (UA) (Normal) Urine Ketones (Negative) Urine Blood (Negative) Urine Nitrate (Negative) Urine Bilirubin (NEGATIVE) Prot Sulfosalicyli c Acd (Negative) Urine Urobilinogen (Negative) mg/dL Ur Leukocyte Georgette ase (Negative) CSF Appearance (CLEAR) CSF Color (COLORLESS) CSF WBC (0-5) /uL CSF RBC (0-0) 10^3/uL CSF Mononuclear # Auto (50-90) 10^3/uL CSF Mononuclear WB Cs % (50-90) % CSF Polynuclear WB Cs # (0-10) 10^3/uL CSF Polynuclear WB Cs % (0-10) % CSF Glucose (40-70) mg/dL CSF Total Protein (15-45) mg/dL Serum Ketones (Negative) Hepatitis A IgM Ab Non-reactive (Nonreactive) Hep Bs Antigen Non-reactive (Nonreactive) Hep Bs Antibody 7.9 (0-8.5) Hep B Core Total A b Non-reactive (Nonreactive) Hepatitis C Antibo dy Non-reactive (Nonreactive) Monoscreen Negative (Negative) Discharge Plan Discharge Patient Disposition: Placed in Observation Admit Provider: Ilda Gandara Condition: Stable Discharge Date/Time: 03/22/20 10:13 Coding Level of Care Code ED Senior Mobile Solutions Architect for Chg Fwd Exam Comprehensive
[2020-03-21 20:38] LABS: Basophils # 0.1 10^3/uL (0.0-0.1); Basophils % 0.8 %; Eosinophils # 0.2 10^3/uL (0.0-0.8); Eosinophils % 3.5 %; Hematocrit 38.5 % (37.0-47.0); Hemoglobin 12.7 g/dL (11.5-15.3); Lymphocytes # 1.5 10^3/uL (0.8-4.8); Lymphocytes % 23.3 %; Mean Corpuscular Hemoglobin 31.9 pg (28.0-34.0); Mean Corpuscular Volume 96.7 fL (81-99); Mean Platelet Volume 10.8 fL (7.4-10.4); Monocytes # 0.5 10^3/uL (0.2-0.9); Monocytes % 7.6 %; Neutrophils # 4.18 10^3/uL (1.8-7.7); Neutrophils % 64.3 %; Nucleated Red Blood Cells % 0 %; Platelet Count 242 10^3/cmm (130-400); Red Blood Count 3.98 10^6/uL (4.1-5.3); Red Cell Distribution Width 12.4 % (12.1-15.1); White Blood Count 6.5 10^3/uL (4.0-10.0)
[2020-03-21 20:39] LABS: Add Urine Microscopic? NO
[2020-03-21] MEDS: ondansetron 2 mg/ML SDV 2 mL 4 MG IVP (20:49)
[2020-03-21 20:51] VITALS: RESP 18; O2SAT 98
[2020-03-21] MEDS: morphine 4 mg/mL SDV 1 mL IVP (20:51)
[2020-03-21] MEDS: sodium chloride 0.9% 1,000 ML 999 ML IV (20:56)
[2020-03-21 21:07] LABS: Urine Appearance Clear (CLEAR); Urine Color Yellow (Yellow); pH Urine 8 (5-7)
[2020-03-21 21:08] LABS: INR 0.89 (0.8-1.2)
[2020-03-21 21:08] LABS: Bilirubin Urine Neg (NEGATIVE); Blood Urine Neg (Negative); Glucose Urine UA 2+ (Normal); Ketones Urine 1+ (Negative); Leukocyte Esterase Urine Negative (Negative); Nitrate Urine Negative (Negative); Protein Urine Neg (Negative); Sulfosalicylic Acid Urine Negative (Negative); Urobilinogen Urine Norm (Negative)
[2020-03-21 21:10] LABS: Lactate (Lactic Acid level) 3.3 mmol/L (0.5-2.2)
[2020-03-21 21:12] LABS: Alanine Aminotransferase 54 U/L (0-33); Albumin Level 4.1 g/dL (3.5-5.2); Alkaline Phosphatase 113 IU/L (35-105); Anion Gap 16.5 (5-19); Aspartate Amino Transferase 50 U/L (0-32); Blood Urea Nitrogen 9 mg/dL (6-20); Calcium 9.9 mg/dL (8.5-10.5); Carbon Dioxide 27 mmol/L (22-29); Chloride 101 mmol/L (98-107); Globulin 2.7 g/dL (1.3-4.6); Glomerular Filtration Rate 192.9 mL/min (90-130); Glucose 65 mg/dL (65-115); Osmolality Calculated 286 mOsm/kg (285-295); Potassium 3.5 mmol/L (3.5-5.1); Sodium 141 mmol/L (136-145); Total Bilirubin 0.3 mg/dL (0.15-1.2); Total Protein 6.8 g/dL (6.6-8.7)
[2020-03-21 22:30] LABS: Erythrocyte Sedimentation Rate 34 mm/hr (0-15)
--- NOTE | 2020-03-21 23:40 | CTR_ITS ---
PROCEDURE INFORMATION: Exam: CT Head Without Contrast Exam date and time: 03/21/2020 12:38 AM Age: 24 years old Clinical indication: Pain; Headache not specified TECHNIQUE: Imaging protocol: Computed tomography of the head without contrast. Radiation optimization: All CT scans at this facility use at least one of these dose optimization techniques: automated exposure control; mA and/or kV adjustment per patient size (includes targeted exams where dose is matched to clinical indication); or iterative reconstruction. COMPARISON: No relevant prior studies available. RADIATION DOSE METRICS: Total DLP (mGy-cm): 770.89 FINDINGS: Brain: Normal. No hemorrhage. Unremarkable white matter. No mass effect. Ventricles: Normal. No ventriculomegaly. Bones/joints: No acute findings. Sinuses: Visualized sinuses are unremarkable. No fluid levels. Mastoid air cells: Visualized mastoid air cells are well aerated. Nasopharynx: Pneumatized middle turbinates. Soft tissues: Unremarkable. CT/CT head wo con* [id number] IMPRESSION: No acute intracranial abnormality. Radiation Dose CTDIVOL = (mGy): DLP = 770.89 (mGy-cm)
--- NOTE | 2020-03-21 23:40 | CTR_ITS ---
PROCEDURE INFORMATION: Exam: CT Neck With Contrast Exam date and time: 03/21/2020 12:38 AM Age: 24 years old Clinical indication: Condition or disease; Dental caries; Additional info: Recent diagnosis of dental abscess TECHNIQUE: Imaging protocol: Computed tomography images of the neck with intravenous contrast. Radiation optimization: All CT scans at this facility use at least one of these dose optimization techniques: automated exposure control; mA and/or kV adjustment per patient size (includes targeted exams where dose is matched to clinical indication); or iterative reconstruction. Contrast material: OMNI 300; Contrast volume: 75 ml; Contrast route: INTRAVENOUS (IV); COMPARISON: CT Cervical Spine wo* [id number] 11/15/2014 4:08 AM RADIATION DOSE METRICS: Total DLP (mGy-cm): 534.74 FINDINGS: Sinuses: Mild mucosal thickening lower maxillary sinuses left greater than right. Nasal cavity: Pneumatized middle nasal turbinates. Nasopharynx: Unremarkable. Dental: Dental caries noted. Periodontal disease noted. Oropharynx: Unremarkable. No significant tonsillar enlargement. Hypopharynx: Unremarkable. Larynx: Unremarkable. Normal epiglottis. Retropharyngeal space: Unremarkable. Submandibular/Parotid glands: Normal. Glands are normal in size. Thyroid: Normal. No enlarged or calcified nodules. Lymph nodes: Unremarkable. No lymphadenopathy. Trachea: Visualized trachea is unremarkable. Lungs: Unremarkable as visualized. Bones/joints: No acute fracture. Soft tissues: Unremarkable. No significant soft tissue swelling. CT/CT neck w con* [id number] IMPRESSION: No acute findings. Radiation Dose CTDIVOL = (mGy): DLP = 534.74 (mGy-cm)
[2020-03-22] MEDS: sodium chloride 0.9% 1,000 ML 999 ML IV ×2 (00:36→07:29)
[2020-03-22 00:47] LABS: C Reactive Protein 5.7 mg/L (0.0-4.9)
[2020-03-22] MEDS: iohexol 300 mg/mL 100 mL Btl IV (02:42)
[2020-03-22] MEDS: morphine 4 mg/mL SDV 1 mL IVP (03:52)
[2020-03-22] MEDS: metoclopramide 5 mg/mL SDV 2 mL 10 MG IVP (03:53)
[2020-03-22 05:36] LABS: Appearance CSF CLEAR (CLEAR); CSF Mononuclear # 0.001 10^3/uL (50-90); CSF Mononuclear # 0.002 10^3/uL (50-90); Color CSF COLORLESS (COLORLESS); Mononuclear WBC CSF % 100 % (50-90); Polynuclear WBC CSF % 0 % (0-10); Red Blood Cell CSF 0 10^3/uL (0-0); White Blood Cell CSF 1 /uL (0-5); White Blood Cell CSF 2 /uL (0-5)
[2020-03-22 05:49] LABS: Glucose CSF 144 mg/dL (40-70); Total Protein CSF 30 mg/dL (15-45)
--- NOTE | 2020-03-22 06:31 | US_ITS ---
WS: [id number] Complete ABDOMINAL ULTRASOUND HISTORY: Abdominal Pain COMPARISON: None available. Liver: 20.7 cm in length. Moderately enlarged liver. No significant hepatic steatosis. No mass. Gallbladder: Normally distended with no gallstones, wall thickening or pericholecystic fluid. Gallbladder wall thickness: 0.2 cm. Pancreas: Normal size and echogenicity. CBD: 0.4 cm. Right kidney: 11.5 cm x 5.8 cm x 4.7 cm. No mass, cortical thickening or hydronephrosis. Left kidney: 10.8 cm x 4.7 cm x 5.2 cm. No mass, cortical thickening or hydronephrosis. Spleen: Normal size and echogenicity. Abdominal aorta and IVC are within normal limits. No ascites. US/US abdomen complete* [id number] IMPRESSION: 1. Moderately enlarged liver without hepatic steatosis. 2. Otherwise negative abdominal ultrasound.
[2020-03-22 06:54] LABS: ABG PCO2 26.9 mmHg (35-45); Arterial Blood Gas Hematocrit 39.9 % (37-47); Base Excess ABG -11.8 mmol/L (-2.0-2.0); Blood Gas Allen Test Pos; Blood Gas Sample Site Radial, right; Blood Gas Sample Type Arterial; HCO3 ABG 13.1 mmol/L (22-26); Oxygen Device ROOM AIR; PO2 ABG 80.9 mmHg (80.0-100.0)
[2020-03-22 07:13] LABS: Ketone (Acetest) Serum Negative (Negative)
--- NOTE | 2020-03-22 07:13 | PC.NURSE ---
Resumed care at this time.
[2020-03-22 07:20] LABS: Lactic Sepsis W/Reflex 1.6 mmol/L (0.5-2.2)
[2020-03-22 07:21] LABS: HCG, Serum Qual Negative (Negative); Lipase 17 U/L (13-60); Magnesium 1.7 mg/dL (1.7-2.3)
[2020-03-22] MEDS: piperacillin-tazobactam 3.375 GM in sodium chloride 0.9% (plus) 50 ML IV (07:29)
[2020-03-22] MEDS: ondansetron 2 mg/ML SDV 2 mL 4 MG IVP ×3 (07:29→23:34)
--- NOTE | 2020-03-22 08:10 | PC.NURSE ---
Dr. Gandara at bedside speaking with patient concerning admission
--- NOTE | 2020-03-22 08:42 | PM.HP ---
Providers/Chief Complaint Admitting Physician: Ilda Gandara DO Primary Care Provider: None Chief Complaint: fever, tooth pain, shaking History of Present Illness Apryl Duran is a 24 year old female the past medical history of type 1 diabetes mellitus that presented to the emergency department for fevers and chills. She stated that she has had a fever for approximately 1 week. She stated that initially she began developing dental pain and went to see her dentist was placed on amoxicillin. She stated that she continued to have dental pain and concern for infection, therefore she came into the emergency department was noted to have infected left upper molar and transition from amoxicillin to clindamycin. Patient was also sent home with pain medication. She reported that she had been taking the medication but then developed some headache worsening nausea vomiting and stiffness in her neck. She is uncertain what her T-max at home is been due to not having a thermometer at home. Reports sweats and chills. Patient denies any sick contacts, no exposure to anyone under investigation for COVID-19 and reports that she has not been out of her home due to her type 1 diabetes. Patient has not been at work since the beginning of COVID pandemic. Patient reports some diarrhea over the past 1 day, reports that she is on well water but denies any other individuals in the home with symptoms. She denies any bright red blood per rectum, no melanotic stools. Patient reports continued dental discomfort, no drainage. She stated that the swelling in her left cheek has improved. Patient reports due to concern for her headache and worsening nausea vomiting she came into the ER for further evaluation. She stated that she has been in DKA in the past, has been off of an insulin pump due to loss of insurance but continues to have blood sugars that are well controlled under the 200s with her Novolin R. She reports no history of respiratory symptoms, no cough or shortness of breath, no sore throat, no nasal drainage or congestion. Patient denies any vision changes. Patient was seen and evaluated in the emergency department noted have concern for nausea vomiting with concern for acidosis and a type I diabetic and dehydration. Placed on observation for further evaluation and treatment. She did have a lumbar for functional sugar, CT head and CT neck performed in the emergency department with no identifiable maxillofacial abscess. Review of Systems Const: Reports: fever(s) and chills Eyes: Reports: photophobia; Denies: change in vision or blurry vision ENMT: Denies: nasal congestion Card: Denies: chest pain, palpitations or edema Resp: Denies: dyspnea, productive cough or hemoptysis GI: Reports: nausea, vomiting and diarrhea; Denies: abdominal pain, constipation, hematochezia or melena : Reports: other (Normal LMP 2 weeks ago); Denies: dysuria or hematuria Musc: Denies: extremity pain or muscle cramps Skin/Breast: Denies: rash or new lesions Neuro: Reports: headache(s) and other (Neck pain); Denies: dizziness Psych: Denies: anxiety or depression Endo: Denies: polyuria or hot flashes [place]/Lymph: Denies: easy bruising or easy bleeding Medications/Allergies Home Medications Medication Instructions Recorded Confirmed Last Taken Type insulin regular human [Novolin R See Rx Instructions .ROUTE .COMPLEX 01/26/20 03/22/20 03/21/20 History Regular U-100 Insuln] clindamycin HCl 300 mg PO TID 7 Days #21 cap 03/18/20 03/22/20 03/21/20 Rx hydrocodone-acetaminophen 1 tab PO Q6H PRN #14 tab 03/18/20 03/22/20 03/21/20 Rx Allergies Allergy/AdvReac Type Severity Reaction Status Date / Time sulfamethoxazole Allergy ADR-Itching Verified 01/26/20 20:59 [From Bactrim] trimethoprim [From Bactrim] Allergy ADR-Itching Verified 01/26/20 20:59 PFSH Acute PFSH: Medical History Diabetes mellitus type 1 Surgical History History of dilation and curettage History of lymph node excision Left arm Family History Mother Hypothyroidism Father Psychiatric illness Bipolar disorder Social History Smoking and tobacco status: never smoked Alcohol intake: never Substance/Drug Use: never Household members: spouse Marital status: Female Reproductive History: Date of last menstrual period: 03/11/20 Vitals/I&O/Wt Last Vital Signs Temp 98.1 F 03/21/20 19:42 Pulse 93 03/21/20 19:42 Resp 18 03/21/20 20:51 BP 112/70 03/21/20 19:42 Pulse Ox 98 03/21/20 20:51 03/21/20 03/22/20 03/22/20 22:59 06:59 14:59 Intake Total 1000 / 1000 1000 / 1000 Balance 1000 / 1000 1000 / 1000 Weight last 48 hrs Weight 56.699 kg Physical Exam Const: COMMON NORMALS: patient oriented x3 and alert GENERAL APPEARANCE: cooperative ORIENTATION/CONSCIOUSNESS: Yes awake, Yes oriented to person, Yes oriented to place and Yes oriented to time HENMT: COMMON NORMALS: normocephalic and atraumatic HEAD & SCALP: normocephalic and atraumatic Eye: COMMON NORMALS: Equal, round and reactive pupils present PUPIL: Yes Equal, round and reactive pupils present Neck/C-Spine: COMMON NORMALS: supple GENERAL: Yes normal visual inspection Resp: COMMON NORMALS: normal respiratory effort and clear to auscultation bilaterally EFFORT & INSPECTION: Yes able to speak in complete sentences AUSCULTATION: clear to auscultation bilaterally, no rhonchi and no wheezes Cardio: COMMON NORMALS: regular rate, regular rhythm and No murmurs present (Cardio) RATE: regular rate RHYTHM: regular rhythm GI: COMMON NORMALS: Soft to palpation and non-tender INSPECTION: No abdominal distension AUSCULTATION: Yes normoactive bowel sounds PALPATION: Yes Soft to palpation : COMMON NORMALS: Yes no CVA tenderness BLADDER/KIDNEY EXAM: Yes no CVA tenderness Back/Pelvis: COMMON NORMALS: no CVA tenderness Extremity: COMMON NORMALS: no clubbing, cyanosis or edema and no calf tenderness Neuro: COMMON NORMALS: patient oriented x3, CN's II-XII intact bilaterally, moves all extremities and no focal motor deficits SENSORIUM/ORIENTATION: Yes alert, Yes oriented to person, Yes oriented to place and Yes oriented to time SPEECH: speech normal OTHER: Normal flexion and extension of the neck, some tenderness to palpation over the paraspinal muscles in the cervical region, no spinous process tenderness Psych: COMMON NORMALS: mental status grossly normal and cooperative Skin: COMMON NORMALS: no rashes or lesions noted GENERAL SKIN EXAM: no rashes or lesions noted Data : 03/21/20 20:30 03/21/20 20:30 Micro: Microbiology 03/22/20 04:00 Gram Stain - Final Cerebrospinal Fluid 03/21/20 20:31 Blood Culture - Preliminary Blood SPECIMEN COLLECTED 03/21/20 20:30 Blood Culture - Preliminary Blood SPECIMEN COLLECTED A&P Assessment and plan (1) Intractable nausea and vomiting: Intractable nausea and vomiting, no evidence of DKA but concern for GI related illness and question of gastroenteritis Hepatitis panel is ordered and pending Infectious panel ordered and pending Patient reports loose stools over the past couple of days but is also been on antibiotics due to dental infection Probiotic Clear liquid diet and gradually increase as tolerated Recheck BMP this afternoon Lactic acid initially elevated but improved with IV fluids Continue with IV fluids and antiemetics Status: Acute (2) Diabetes mellitus type 1: Diabetes mellitus type 1 currently on sliding scale insulin, placed on sliding scale insulin per protocol Patient does have some acidosis that improved with IV fluids, patient is not in DKA at this time but will continue to monitor closely with type glucose control Status: Acute (3) Dental caries: Patient with dental caries and prior dental abscess, continue on clindamycin as this has appeared to improved according to patient, no evidence of any sinusitis on physical exam, no sinus tenderness and no evidence on CT imaging CT scan performed shows no dental abscess, if concern for worsening pain or swelling will obtain CT facial bone Status: Acute Additional A&P Information Initial concern for headache and neck pain, likely due to dehydration and dental carry with concern for tension headache. Patient reports improvement of symptoms at time of exam. CT head shows no acute intracranial abnormality. Lumbar puncture performed in the emergency department to rule out meningitis, Gram stain shows no organisms, question of viral etiology. Patient reports that she has not been out in public at all, no exposure to COVID-19, no cough or respiratory symptoms, chest x-ray does not show any concern for concern of COVID-19. DVT prophylaxis: SCDs, low risk Diet: Clear liquid CODE STATUS: Full code Attestations Medical Necessity Statement*: Observation due to concern for nausea vomiting and type 1 diabetes with headache and neck pain Coding Level of Care Code Acute Cadastral Surveyor for Chg Fwd Exam Comprehensive Diagnoses Intractable nausea and vomiting R11.2 Diabetes mellitus type 1 E10.9 Dental caries K02.9
[2020-03-22 08:57] LABS: Hepatitis A Antibody IgM Non-Reactive (Nonreactive); Hepatitis B Core AB, Total Non-Reactive (Nonreactive); Hepatitis B Surface AB 7.9 (0-8.5); Hepatitis B Surface Antigen Non-Reactive (Nonreactive); Hepatitis C Virus Antibody Non-Reactive (Nonreactive)
[2020-03-22 08:58] LABS: Glucose Point of Care 190 mg/dL (70-110)
[2020-03-22 09:13] LABS: Monoscreen Negative (Negative)
[2020-03-22 10:55] VITALS: BP 102/66; PULSE 104; RESP 18; TEMP 36.9; O2SAT 97
[2020-03-22 11:20] LABS: Glucose Point of Care 121 mg/dL (70-110)
[2020-03-22] MEDS: sodium chloride 0.9% 1,000 ML 150 ML IV ×2 (11:21→17:45)
[2020-03-22 12:00] VITALS: BP 97/54; PULSE 107; RESP 12; TEMP 36.8; O2SAT 96
[2020-03-22 12:47] VITALS: PULSE 108; O2SAT 92
[2020-03-22] MEDS: clindamycin 600 MG/50 ML PREMIX 100 MG IV ×2 (15:26→23:26)
[2020-03-22 16:00] VITALS: BP 101/54; PULSE 111; RESP 16; TEMP 37.3; O2SAT 96
[2020-03-22 17:01] LABS: Glucose Point of Care 361 mg/dL (70-110)
[2020-03-22] MEDS: doxycycline 100 mg Tablet PO (17:44)
[2020-03-22] MEDS: pantoprazole DR 40 mg Tablet PO (17:44)
[2020-03-22 17:53] LABS: Ferritin 219 ng/mL (15-150); Lactate Dehydrogenase 128 U/L (135-214)
--- NOTE | 2020-03-22 18:03 | XRR_ITS ---
PROCEDURE INFORMATION: Exam: XR Chest, 1 View Exam date and time: 03/22/2020 8:51 PM Age: 24 years old Clinical indication: Fever TECHNIQUE: Imaging protocol: XR of the chest Views: 1 view. COMPARISON: CR Chest 1 [place] [id number] 08/07/2015 12:43 PM FINDINGS: Lungs: No consolidation. Pleural space: No significant visible pleural effusion. No pneumothorax. Heart/Mediastinum: No significant cardiomegaly. Bones/joints: No acute finding. XR/XR chest 1V portable [id number] IMPRESSION: No acute cardiopulmonary finding.
[2020-03-22 20:00] VITALS: BP 99/61; PULSE 106; RESP 22; TEMP 36.8; O2SAT 99
[2020-03-22 20:26] LABS: Glucose Point of Care 127 mg/dL (70-110)
[2020-03-22] MEDS: lactobacillus 1 Tablet 1 TAB PO (20:57)
[2020-03-23] VITALS (11 sets, daily range): BP systolic 100–120; BP diastolic 51–69; PULSE 89–123; RESP 17–28; TEMP 37.1; O2SAT 97–100
[2020-03-23] MEDS: promethazine 25 mg/mL SDV 1 mL IM (01:40)
[2020-03-23] MEDS: sodium chloride 0.9% 1,000 ML 150 ML IV (01:44)
[2020-03-23 02:37] LABS: Glucose Point of Care 519 mg/dL (70-110)
[2020-03-23 02:48] LABS: Glucose Point of Care 472 mg/dL (70-110)
[2020-03-23 03:28] LABS: Arterial Blood Gas Hematocrit 39.2 % (37-47); Base Excess ABG -25.2 mmol/L (-2.0-2.0); Blood Gas Allen Test Pos; Blood Gas Sample Site Radial, left; Blood Gas Sample Type Arterial; HCO3 ABG 3.5 mmol/L (22-26)
--- NOTE | 2020-03-23 03:54 | PM.EVENT ---
Event Note Event Note: Called with patient's blood sugar being in the 500s. She had felt like she was in DKA. At 9 PM her blood sugar was 200. She did not require any insulin per sliding scale at that time. Stat ABG showed pH of 7.04 and a bicarb of 13. She had already received 15 units of insulin subcutaneously. I am transferring her to the ICU to put her on an insulin drip. Stat labs have been ordered as well. I am given her fluid bolus. Will notify dayshift provider. I did go on and order an EKG as I do not see that one is been done. She has multiple labs pending. Vital signs are otherwise okay. She has had nausea and vomiting this shift. I gave her some Phenergan earlier as she was not able to take oral Compazine and the Zofran had not helped.
[2020-03-23 04:09] LABS: Basophils # 0.1 10^3/uL (0.0-0.1); Basophils % 0.5 %; Eosinophils % 0.1 %; Hematocrit 45.5 % (37.0-47.0); Hemoglobin 13.3 g/dL (11.5-15.3); Lymphocytes # 0.9 10^3/uL (0.8-4.8); Mean Corpuscular HGB Conc 29.2 g/dL (30.0-36.0); Mean Corpuscular Hemoglobin 31.8 pg (28.0-34.0); Mean Corpuscular Volume 108.9 fL (81-99); Mean Platelet Volume 11.5 fL (7.4-10.4); Monocytes # 0.4 10^3/uL (0.2-0.9); Monocytes % 3.1 %; Neutrophils # 9.84 10^3/uL (1.8-7.7); Neutrophils % 87.4 %; Nucleated Red Blood Cells % 0 %; Platelet Count 343 10^3/cmm (130-400); Red Blood Count 4.18 10^6/uL (4.1-5.3); Red Cell Distribution Width 12.8 % (12.1-15.1); White Blood Count 11.3 10^3/uL (4.0-10.0)
[2020-03-23 04:19] LABS: Ketone (Acetest) Serum Positive (Negative)
--- NOTE | 2020-03-23 04:23 | ECG_ITS ---
[facility] Test Date: 2020-03-23 Pat Name: Apryl Duran Department: Room: [facility] Gender: Female Mold Holder: JELLY ARRIETAB: 1995 Requested By: Rosa Sorensen Order Number: [id number] Vishal MD: Kavita Collins M.D. Measurements Intervals [place] Rate: 126 P: 42 TX: 118 QRS: 68 QRSD: 89 T: 15 QT: 366 QTc: 531 Interpretive Statements SINUS TACHYCARDIA WITH SHORT TX INTERVAL POSSIBLE RIGHT VENTRICULAR CONDUCTION DELAY [RSR (QR) IN V1/V2] NONSPECIFIC ST & T-WAVE ABNORMALITY ABNORMAL RHYTHM ECG Compared to ECG 08/07/2015 12:34:02 No significant changes Electronically Signed On 03-23-2020 19:05:40 CDT by Kavita Collins M.D. [id number]
[2020-03-23 04:25] LABS: D Dimer 0.48 ug/mIFEU (0-0.59)
[2020-03-23 04:28] LABS: Magnesium 2.2 mg/dL (1.7-2.3); Phosphorus 4.5 mg/dL (2.5-4.5)
[2020-03-23 04:29] LABS: Alanine Aminotransferase 54 U/L (0-33); Albumin Level 4.3 g/dL (3.5-5.2); Alkaline Phosphatase 123 IU/L (35-105); Anion Gap 37.5 (5-19); Aspartate Amino Transferase 52 U/L (0-32); Blood Urea Nitrogen 9 mg/dL (6-20); Chloride 99 mmol/L (98-107); Globulin 3.3 g/dL (1.3-4.6); Glomerular Filtration Rate 101.1 mL/min (90-130); Osmolality Calculated 305 mOsm/kg (285-295); Potassium 5.5 mmol/L (3.5-5.1); Sodium 136 mmol/L (136-145); Total Bilirubin 0.3 mg/dL (0.15-1.2); Total Protein 7.6 g/dL (6.6-8.7)
[2020-03-23 04:34] LABS: Thyroid Stimulating Hormone 0.32 uIU/mL (0.27-4.20)
[2020-03-23] MEDS: insulin regular-human 250 UNIT in sodium chloride 0.9% 250 ML 10.8 UNIT IV (04:34)
--- NOTE | 2020-03-23 04:35 | PC.NURSE ---
Addendum entered by Shagufta Sanchez RN 03/23/20 04:37: Time of transfer 0420. Original Note: Transfer Report called to Eulogio Vann RN and patient transferred to ICU via bed with all personal belongings.
[2020-03-23 04:42] LABS: Carbon Dioxide 5 mmol/L (22-29)
[2020-03-23 04:43] LABS: Glucose 585 mg/dL (65-115)
[2020-03-23] MEDS: sodium chloride 0.9% 1,000 ML 500 ML IV ×2 (04:59→06:33)
[2020-03-23 05:43] LABS: Hepatitis A Antibody IgM Non-Reactive (Nonreactive); Hepatitis B Core AB, Total Non-Reactive (Nonreactive); Hepatitis B Surface AB 9.6 (0-8.5); Hepatitis B Surface Antigen Non-Reactive (Nonreactive); Hepatitis C Virus Antibody Non-Reactive (Nonreactive)
[2020-03-23 05:57] LABS: Troponin(5th) Baseline 6 ng/L (0-10)
[2020-03-23 06:31] LABS: Troponin 5 2HR 16.41 ng/L (0-10)
[2020-03-23] MEDS: clindamycin 600 MG/50 ML PREMIX 100 MG IV (06:33)
[2020-03-23 06:48] LABS: Glucose Point of Care 297 mg/dL (70-110)
[2020-03-23 06:48] LABS: Glucose Point of Care 153 mg/dL (70-110)
[2020-03-23 06:48] LABS: Glucose Point of Care 421 mg/dL (70-110)
[2020-03-23 06:49] LABS: Troponin 5 2HR Delta 10.41 ABS# (0-10)
[2020-03-23 06:50] LABS: Estmated Average Glucose 217; Hemoglobin A1C 9.2 % (4.0-6.0)
--- NOTE | 2020-03-23 07:16 | ECG_ITS ---
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 Measurements Intervals [place] Rate: 114 P: 38 DC: 120 QRS: 70 QRSD: 90 T: -7 QT: 264 QTc: 364 Interpretive Statements SINUS TACHYCARDIA POSSIBLE RIGHT VENTRICULAR CONDUCTION DELAY [RSR (QR) IN V1/V2] NONSPECIFIC T-WAVE ABNORMALITY WARNING: DATA QUALITY MAY AFFECT INTERPRETATION Compared to ECG 03/23/2020 05:06:39 Short DC interval no longer present T-wave abnormality still present Electronically Signed On 03-23-2020 19:06:12 CDT by Kavita Collins M.D. [id number]
--- NOTE | 2020-03-23 07:20 | PC.NURSE ---
Lab called critical for 2 hour troponin and delta. Dr. Sorensen notified. Notified Dr. Sorensen that 0630 blood sugar was 153. Will change IVFs.
[2020-03-23 07:55] LABS: ABG PCO2 20.7 mmHg (35-45); ABG PH Result 7.28 (7.35-7.45); Arterial Blood Gas Hematocrit 36.3 % (37-47); Base Excess ABG -14.9 mmol/L (-2.0-2.0); Blood Gas Allen Test Pos; Blood Gas Sample Site Brachial, right; Blood Gas Sample Type Arterial; HCO3 ABG 9.8 mmol/L (22-26); Oxygen Device ROOM AIR; PO2 ABG 63.3 mmHg (80.0-100.0)
[2020-03-23] MEDS: D5-NS 0.45% + KCL 20 mEq 20 MEQ/1,000 ML BAG 150 MEQ IV (07:58)
[2020-03-23] MEDS: pantoprazole DR 40 mg Tablet PO (07:59)
[2020-03-23] MEDS: lactobacillus 1 Tablet 1 TAB PO ×3 (07:59→21:15)
[2020-03-23] MEDS: doxycycline 100 mg Tablet PO ×2 (07:59→17:04)
[2020-03-23] MEDS: ondansetron 2 mg/ML SDV 2 mL 4 MG IVP (09:40)
[2020-03-23] MEDS: dextrose 5%-sod chloride 0.45% 1,000 ML 150 ML IV (09:43)
--- NOTE | 2020-03-23 10:41 | CTR_ITS ---
PROCEDURE INFORMATION: Exam: CT Maxillofacial With Contrast Exam date and time: 03/23/2020 4:36 PM Age: 24 years old Clinical indication: Fever; Patient HX: Dental caries; Additional info: Dental infection, dka TECHNIQUE: Imaging protocol: Computed tomography images of the face with intravenous contrast. Radiation optimization: All CT scans at this facility use at least one of these dose optimization techniques: automated exposure control; mA and/or kV adjustment per patient size (includes targeted exams where dose is matched to clinical indication); or iterative reconstruction. Contrast material: OMNI 300; Contrast volume: 75 ml; Contrast route: INTRAVENOUS (IV); COMPARISON: No relevant prior studies available. RADIATION DOSE METRICS: Total DLP (mGy-cm): 753.4 FINDINGS: Orbits: Orbits are unremarkable. Globes are unremarkable. Bones/joints: No definite evidence of alveolitis or osteomyelitis. Sinuses: No visible evidence of active paranasal sinus disease. Dental: Large dental filomena left 3rd maxillary molar. Large dental filomena with destruction of the tooth to the level of the roots right 3rd maxillary molar. Associated suspected periapical cyst. Dental filomena right 1st mandibular molar. Suspected cracked enamel 2nd right mandibular molar. Small dental filomena right mandibular 1st bicuspid. Missing teeth. Soft tissues: No visible loculated fluid collection to suggest the presence of a abscess. CT/CT facial bones w con [id number] IMPRESSION: 1. Numerous dental caries as discussed in text above. 2. Suspected periapical cyst right 3rd maxillary molar. 3. No definite evidence of alveolitis or osteomyelitis. Radiation Dose CTDIVOL = (mGy): DLP = 753.4 (mGy-cm)
--- NOTE | 2020-03-23 10:43 | P.PN_ITS ---
Subjective Subjective: Interval history: Patient sitting up in bed with nausea at time of exam this morning. Patient transferred to the ICU overnight due to onset of DKA. Blood sugars have been around 200 then spiked to 500. Patient reports continued dental pain but states that it is about the same, no worsening. Discussed with patient plan for CT scan of the facial bones for further evalua tion to rule out abscess. Also discussed with patient Covid 19 testing. Patient reports no specific abdominal pain just worsening nausea and vomiting. Vitals/I&O/Wt Last Vital Signs Temp 98.8 F 03/23/20 00:00 Pulse 116 H 03/23/20 10:01 Resp 24 H 03/23/20 10:01 BP 117/56 03/23/20 10:01 Pulse Ox 100 03/23/20 10:01 03/22/20 03/23/20 03/23/20 22:59 06:59 14:59 Intake Total 1110 / 3160 1852.913 / 5012.913 50 / 50 Output Total 3945 / 4995 200 / 200 Balance 1110 / 2110 -2092.087 / 17.913 -150 / -150 Weight last 48 hrs Weight 56.064 kg Weight 56.699 kg Physical Exam Const: COMMON NORMALS: patient oriented x3 and alert GENERAL APPEARANCE: cooperative ORIENTATION/CONSCIOUSNESS: Yes awake, Yes oriented to person, Yes oriented to place and Yes oriented to time HENMT: COMMON NORMALS: normocephalic and atraumatic HEAD & SCALP: normocephalic and atraumatic OTHER: Poor dentition Eye: COMMON NORMALS: Equal, round and reactive pupils present PUPIL: Yes Equal, round and reactive pupils present Neck/C-Spine: COMMON NORMALS: supple GENERAL: Yes normal visual inspection Resp: COMMON NORMALS: normal respiratory effort and clear to auscultation bilaterally EFFORT & INSPECTION: Yes able to speak in complete sentences AUSCULTATION: clear to auscultation bilaterally, no rhonchi and no wheezes Cardio: OTHER: Tachycardic, regular rhythm, no appreciable murmur GI: COMMON NORMALS: Soft to palpation and non-tender INSPECTION: No abdominal distension AUSCULTATION: Yes normoactive bowel sounds PALPATION: Yes Soft to palpation Extremity: COMMON NORMALS: no clubbing, cyanosis or edema and no calf tenderness Neuro: COMMON NORMALS: patient oriented x3, CN's II-XII intact bilaterally, moves all extremities and no focal motor deficits SENSORIUM/ORIENTATION: Yes alert, Yes oriented to person, Yes oriented to place and Yes oriented to time SPEECH: speech normal OTHER: Normal flexion and extension of the neck Psych: COMMON NORMALS: mental status grossly normal and cooperative Skin: COMMON NORMALS: no rashes or lesions noted GENERAL SKIN EXAM: no rashes or lesions noted Data : 03/23/20 03:45 03/23/20 14:05 Micro: Microbiology 03/21/20 20:31 Blood Culture - Preliminary Blood NEGATIVE TO DATE 03/21/20 20:30 Blood Culture - Preliminary Blood NEGATIVE TO DATE 03/22/20 04:00 Gram Stain - Final Cerebrospinal Fluid A&P Assessment and plan (1) Intractable nausea and vomiting: Intractable nausea and vomiting Blood sugar was 60 on admission however then overnight Lo increased to greater than 500. Patient went into DKA then transferred to the ICU and started on insulin drip. Have continued with aggressive IV fluids. Stool studies still remain pending, patient has not had a bowel movement since admission. No specific abdominal pain at this time. Clear liquid diet Repeat KUB today Broadened antibiotic coverage Nausea vomiting likely worse due to DKA Status: Acute (2) Diabetes mellitus type 1: Diabetes mellitus type 1 currently on sliding scale insulin, placed on sliding scale insulin per protocol Went into DKA overnight and required transfer to the ICU with IV insulin drip Continue with IV fluids Transition to subcutaneous insulin when appropriate. Serial BMP Status: Acute (3) Dental caries: Previously on clindamycin, discontinued and started on broad-spectrum antibiotics with vancomycin and Zosyn due to DKA with concern for underlying sepsis We will obtain CT scan of the facial bones today due to continued dental pain, no worsening of pain but will need to evaluate further for any abscess formation Status: Acute Additional A&P Information Initial concern for headache and neck pain, lumbar puncture performed in the ED, Gram stain showing no organisms. Question of viral meningitis. Tested for Covid 19, testing remains pending tick panel remains pending, will continue on doxycycline 100 mg twice daily Diabetic ketoacidosis: Transferred to the ICU overnight, continue on insulin drip per protocol, transition to subcutaneous insulin once anion gap is closed and bicarb greater than 21. Discussed with patient that she will require long- acting insulin at time of discharge Sepsis: Dental caries, no other infectious etiology identified at this time, will broaden antibiotic coverage to vancomycin and Zosyn and continue to follow- up with blood cultures Elevated troponin: Likely secondary to tachycardia with DKA, continue to monitor serial troponin and EKG, patient denies any chest pain. Discussed with card iologist and reviewed the chart including patient's troponin delta and EKG. No concern by cardiology at this time, EKG reviewed. Continue monitoring on telemetry. Believed to be secondary to DKA and electrolyte abnormalities DVT prophylaxis: SCDs, low risk Diet: Clear liquid CODE STATUS: Full code Attestations Medical Necessity Statement*: Patient changed to inpatient admission due to development of DKA with sepsis and transferred to the ICU. Coding Level of Care Code Acute Clinical Documentation Specialist for [facility] Fwd Exam Comprehensive Diagnoses Intractable nausea and vomiting R11.2 Diabetes mellitus type 1 E10.9 Dental caries K02.9
[2020-03-23 10:51] LABS: Blood Urea Nitrogen 7 mg/dL (6-20); Calcium 8.7 mg/dL (8.5-10.5); Chloride 106 mmol/L (98-107); Glomerular Filtration Rate 101.1 mL/min (90-130); Glucose 211 mg/dL (65-115); Magnesium 1.9 mg/dL (1.7-2.3); Osmolality Calculated 292 mOsm/kg (285-295); Sodium 140 mmol/L (136-145)
[2020-03-23 10:54] LABS: Troponin 5 6HR 19.46 ng/L (0-10)
--- NOTE | 2020-03-23 10:54 | USCV_ITS ---
Renee Apryl Age: 24 Gender: F : 1995 Exam Date: 03/23/2020 16:57 Ordering Phys: Ilda Gandara DO Technologist: Hoda Jama [place] [facility] [place]: ELEVATED TROPONIN BP: 106 / 52 HR: 91 Rhythm: Sinus Technical Quality: Adequate MEASUREMENTS (Male / Female) Normal Values 2D ECHO LV Diastolic Diameter PLAX 3.3 cm 4.2 - 5.9 / 3.9 - 5.3 cm LV Systolic Diameter PLAX 2.1 cm LV Chamber Size 3.2 cm IVS Diastolic Thickness 1.0 cm 0.6 - 1.0 / 0.6 - 0.9 cm IVS Systolic Thickness 1.3 cm LVPW Diastolic Thickness 1.5 cm 0.6 - 1.0 / 0.6 - 0.9 cm LVPW Systolic Thickness 1.8 cm RV Chamber Size 2.5 cm LVOT Diameter 2.1 cm LV Ejection Fraction 2D Teich 67.9 % LV Ejection Fraction MOD 2C 47.1 % LV Ejection Fraction 2C AL 47.9 % LA Diameter 3.1 cm LA Width 2.9 cm LA Height 2.8 cm RA Width 3.0 cm RA Height 3.6 cm Aorta at Sinotubular Diameter 2.7 cm M-MODE LV Diastolic Diameter MM 3.6 cm 4.2 - 5.9 / 3.9 - 5.3 cm LV Systolic Diameter MM 2.7 cm LV Ejection Fraction MM Teich 49.5 % IVS Diastolic Thickness MM 0.9 cm 0.6 - 1.0 / 0.6 - 0.9 cm IVS Systolic Thickness MM 1.2 cm LVPW Diastolic Thickness MM 0.9 cm 0.6 - 1.0 / 0.6 - 0.9 cm LVPW Systolic Thickness MM 1.1 cm RV Diastolic Diameter MM 1.3 cm Aortic Annulus Diameter 2.8 cm LA Ao Ratio MM 1.1 MV E Point Septal Separation 0.3 cm DOPPLER AV Peak Velocity 166.0 cm/s LVOT Peak Velocity 105.0 cm/s AV Area Cont Eq vti 2.3 cm squared AV Area Cont Eq pk 2.1 cm squared MV Area PHT 4.8 cm squared Mitral E to A Ratio 1.6 MV E' Velocity 15.0 cm/s Mitral E to MV E' Ratio 7.8 Mitral E to LV E' Lateral Ratio 6.8 Mitral E to LV E' Septal Ratio 9.1 TR Peak Velocity 154.4 cm/s TR Peak Gradient 9.5 mmHg TR Mean Velocity 107.4 cm/s TR Mean Gradient 5.3 mmHg TR Velocity Time Integral 33.6 cm TV Peak E Velocity 64.0 cm/s Right Atrial Pressure 3.0 mmHg Pulmonary Artery Systolic Pressu 12.5 mmHg PV Peak Velocity 91.0 cm/s RV Acceleration Time 0.2 s RV Ejection Time 0.3 s RV AcT/ET 0.5 FINDINGS Left Ventricle Normal left ventricular size, systolic function and wall thickness, with no regional wall motion abnormalities. Normal left ventricular wall thickness. Normal diastolic filling pattern. Left ventricular ejection fraction is estimated at 65 %. Right Ventricle The right ventricle is normal in size and function. Right Atrium The right atrium is normal in size. Left Atrium The left atrium is normal in size. Mitral Valve Structurally normal mitral valve without significant stenosis or prolapse. There is no mitral regurgitation. Aortic Valve Structurally normal aortic valve without significant sclerosis or stenosis. There is no aortic regurgitation. Tricuspid Valve Structurally normal tricuspid valve without significant stenosis or regurgitation. Pulmonary artery systolic pressure is normal. Pulmonic Valve Structurally normal pulmonic valve without significant stenosis. There is no pulmonic regurgitation. Pericardium Normal pericardium without effusion. Aorta Normal ascending aorta dimension. CONCLUSIONS Normal transthoracic echocardiogram. There are no prior echocardiogram studies to compare. Dr. Viral Mcfadden MD (Electronically Signed) Final Date: 24 March 2020 10:18 S
[2020-03-23 10:57] LABS: Anion Gap 33.1 (5-19); Potassium 4.1 mmol/L (3.5-5.1)
[2020-03-23 10:58] LABS: Carbon Dioxide 5 mmol/L (22-29); Troponin 5 6HR Delta 13.46 ng/L (0-12)
--- NOTE | 2020-03-23 11:16 | ECG_ITS ---
[facility] Test Date: 2020-03-23 Pat Name: Apryl Duran Department: Room: [facility] Gender: Female Ortho/Prosthetic Aide: : 1995 Requested By: Rosa Sorensen Order Number: [id number] Vishal MD: Kavtia Collins M.D. Measurements Intervals Bally Rate: 109 P: 28 WA: 113 QRS: 72 QRSD: 90 T: 18 QT: 340 QTc: 458 Interpretive Statements SINUS TACHYCARDIA WITH SHORT WA INTERVAL POSSIBLE RIGHT VENTRICULAR CONDUCTION DELAY [RSR (QR) IN V1/V2] NONSPECIFIC T-WAVE ABNORMALITY ABNORMAL RHYTHM ECG Compared to ECG 03/23/2020 07:31:48 Short WA interval now present T-wave abnormality still present Electronically Signed On 03-23-2020 19:06:35 CDT by Kavita Collins M.D. [id number]
[2020-03-23] MEDS: dextrose 5%-ns 0.45% + KCl 10 1,000 ML 150 MEQ IV ×2 (11:56→19:24)
[2020-03-23] MEDS: vancomycin 1,000 MG in sodium chloride 0.9% 250 ML 250 MG IV ×2 (12:05→20:05)
[2020-03-23 12:16] LABS: Lactic Sepsis W/Reflex 2.2 mmol/L (0.5-2.2)
[2020-03-23] MEDS: piperacillin-tazobactam 3.375 GM in sodium chloride 0.9% (plus) 50 ML IV ×2 (13:34→21:31)
[2020-03-23 13:50] LABS: Procalcitonin 0.15 ng/mL (0-0.5)
[2020-03-23 13:52] LABS: Reflex Lactate Order REFLEX LACTIC ORDERD
[2020-03-23 14:50] LABS: Anion Gap 21.8 (5-19); Blood Urea Nitrogen 6 mg/dL (6-20); Calcium 8.3 mg/dL (8.5-10.5); Carbon Dioxide 12 mmol/L (22-29); Chloride 108 mmol/L (98-107); Glomerular Filtration Rate 120.8 mL/min (90-130); Glucose 116 mg/dL (65-115); Osmolality Calculated 283 mOsm/kg (285-295); Potassium 3.8 mmol/L (3.5-5.1); Sodium 138 mmol/L (136-145)
[2020-03-23 14:51] LABS: Lactic Acid level (Lactate) 0.9 mmol/L (0.5-2.2)
[2020-03-23] MEDS: iohexol 300 mg/mL 100 mL Btl IV (17:34)
[2020-03-23 18:28] LABS: ABG PCO2 12.9 mmHg (35-45); ABG PH Result 7.04 (7.35-7.45)
[2020-03-23 18:36] LABS: Glucose Point of Care 106 mg/dL (70-110)
[2020-03-23 18:36] LABS: Glucose Point of Care 112 mg/dL (70-110)
[2020-03-23 18:36] LABS: Glucose Point of Care 98 mg/dL (70-110)
[2020-03-23 18:36] LABS: Glucose Point of Care 112 mg/dL (70-110)
[2020-03-23 18:36] LABS: Glucose Point of Care 94 mg/dL (70-110)
[2020-03-23 18:36] LABS: Glucose Point of Care 94 mg/dL (70-110)
[2020-03-23 18:36] LABS: Glucose Point of Care 185 mg/dL (70-110)
[2020-03-23 18:36] LABS: Glucose Point of Care 124 mg/dL (70-110)
[2020-03-23 18:36] LABS: Glucose Point of Care 95 mg/dL (70-110)
[2020-03-23 18:36] LABS: Glucose Point of Care 212 mg/dL (70-110)
[2020-03-23 18:36] LABS: Glucose Point of Care 97 mg/dL (70-110)
[2020-03-23 18:36] LABS: Glucose Point of Care 114 mg/dL (70-110)
[2020-03-23 18:37] LABS: Blood Urea Nitrogen 6 mg/dL (6-20); Calcium 8.5 mg/dL (8.5-10.5); Carbon Dioxide 15 mmol/L (22-29); Chloride 108 mmol/L (98-107); Glomerular Filtration Rate 120.8 mL/min (90-130); Glucose 109 mg/dL (65-115); Osmolality Calculated 280 mOsm/kg (285-295); Sodium 137 mmol/L (136-145)
[2020-03-23 18:41] LABS: Anion Gap 17.8 (5-19); Potassium 3.8 mmol/L (3.5-5.1)
[2020-03-23 19:14] LABS: Glucose Point of Care 107 mg/dL (70-110)
[2020-03-23 20:17] LABS: Glucose Point of Care 100 mg/dL (70-110)
[2020-03-23 21:30] LABS: Glucose Point of Care 123 mg/dL (70-110)
[2020-03-23 21:59] LABS: Anion Gap 13.6 (5-19); Blood Urea Nitrogen 5 mg/dL (6-20); Calcium 8.2 mg/dL (8.5-10.5); Carbon Dioxide 17 mmol/L (22-29); Chloride 109 mmol/L (98-107); Glomerular Filtration Rate 120.8 mL/min (90-130); Glucose 101 mg/dL (65-115); Osmolality Calculated 278 mOsm/kg (285-295); Phosphorus 1.8 mg/dL (2.5-4.5); Potassium 3.6 mmol/L (3.5-5.1); Sodium 136 mmol/L (136-145)
[2020-03-23 22:25] LABS: Glucose Point of Care 143 mg/dL (70-110)
[2020-03-23 23:08] LABS: Glucose Point of Care 140 mg/dL (70-110)
--- NOTE | 2020-03-23 23:25 | PC.NURSE ---
Report received from Sugar MAYER at this time. Pt resting in bed. Complaints of pain in head/face but eases up with rest per report. On room air. Remains on insulin gtt, see paper flowsheet. Pt tolerating well. Both left wrist and hand IVs noted to be infiltrated. Left arm elevated. Removed and restarted IVs in the right hand and forearm. Pt tolerated well. Denies need to use bathroom at this time. Pt's face noted to be swollen especially around the jaw line. No other acute signs or symtpoms of distress.
[2020-03-24] VITALS (12 sets, daily range): BP systolic 95–134; BP diastolic 51–84; PULSE 84–94; RESP 14–24; TEMP 36.6–37.6; O2SAT 96–100
[2020-03-24 00:30] LABS: Glucose Point of Care 96 mg/dL (70-110)
[2020-03-24 01:06] LABS: Glucose Point of Care 111 mg/dL (70-110)
[2020-03-24 02:06] LABS: Glucose Point of Care 119 mg/dL (70-110)
[2020-03-24] MEDS: dextrose 5%-ns 0.45% + KCl 10 1,000 ML 150 MEQ IV (02:15)
[2020-03-24 03:13] LABS: Glucose Point of Care 120 mg/dL (70-110)
[2020-03-24] MEDS: vancomycin 1,000 MG in sodium chloride 0.9% 250 ML 250 MG IV (04:06)
[2020-03-24 04:29] LABS: Glucose Point of Care 116 mg/dL (70-110)
[2020-03-24 05:10] LABS: Glucose Point of Care 99 mg/dL (70-110)
--- NOTE | 2020-03-24 05:44 | PC.NURSE ---
Remains on insulin gtt with blood sugars ranging between 99-143 so far. Dental pain persists but eases with rest. No other acute changes through out this shift.
[2020-03-24 05:48] LABS: Basophils % 0.4 %; Eosinophils # 0.1 10^3/uL (0.0-0.8); Eosinophils % 0.7 %; Hematocrit 32.9 % (37.0-47.0); Hemoglobin 9.8 g/dL (11.5-15.3); Lymphocytes # 2.3 10^3/uL (0.8-4.8); Lymphocytes % 31.9 %; Mean Corpuscular HGB Conc 29.8 g/dL (30.0-36.0); Mean Corpuscular Hemoglobin 31.1 pg (28.0-34.0); Mean Corpuscular Volume 104.4 fL (81-99); Mean Platelet Volume 10.7 fL (7.4-10.4); Monocytes # 0.6 10^3/uL (0.2-0.9); Monocytes % 8.3 %; Neutrophils # 4.22 10^3/uL (1.8-7.7); Neutrophils % 58.4 %; Nucleated Red Blood Cells % 0 %; Platelet Count 234 10^3/cmm (130-400); Red Blood Count 3.15 10^6/uL (4.1-5.3); Red Cell Distribution Width 12.8 % (12.1-15.1); White Blood Count 7.2 10^3/uL (4.0-10.0)
[2020-03-24] MEDS: piperacillin-tazobactam 3.375 GM in sodium chloride 0.9% (plus) 50 ML IV ×3 (06:03→21:15)
[2020-03-24 06:12] LABS: Alanine Aminotransferase 31 U/L (0-33); Alkaline Phosphatase 78 IU/L (35-105); Aspartate Amino Transferase 32 U/L (0-32); Blood Urea Nitrogen 4 mg/dL (6-20); Carbon Dioxide 18 mmol/L (22-29); Chloride 110 mmol/L (98-107); Globulin 2.2 g/dL (1.3-4.6); Glomerular Filtration Rate 120.8 mL/min (90-130); Glucose 81 mg/dL (65-115); Osmolality Calculated 281 mOsm/kg (285-295); Sodium 138 mmol/L (136-145); Total Bilirubin 0.2 mg/dL (0.15-1.2); Total Protein 5.2 g/dL (6.6-8.7)
[2020-03-24 06:18] LABS: Glucose Point of Care 112 mg/dL (70-110)
--- NOTE | 2020-03-24 07:32 | PC.NURSE ---
recd a/o. c/o back pain and headache. states since lumbar puncture.
[2020-03-24 07:47] LABS: Coronavirus Lab Test PTC SEE REPORT
[2020-03-24] MEDS: potassium chloride ER 10 mEq Tablet 40 MEQ PO (07:49)
--- NOTE | 2020-03-24 08:07 | PM.PN ---
Subjective Subjective: Interval history: Apryl reports she feels much better. She would like a consistent carb diet. She denies significant headache, neck pain. She has a little bit of back pain where lumbar puncture was performed. Medications: Reviewed: Yes Vitals/I&O/Wt Last Vital Signs Temp 99.7 F H 03/24/20 04:00 Pulse 90 03/24/20 06:00 Resp 18 03/24/20 06:00 BP 98/56 03/24/20 06:00 Pulse Ox 100 03/24/20 06:00 03/23/20 03/24/20 03/24/20 22:59 06:59 14:59 Intake Total 4800 / 4950 1250 / 6200 90.958 / 90.958 Output Total 600 / 800 750 / 1550 Balance 4200 / 4150 500 / 4650 90.958 / 90.958 Weight last 48 hrs Weight 60.872 kg Weight 56.064 kg Physical Exam Narrative: EXAM NARRATIVE: General exam no apparent distress Cardiovascular regular rate and rhythm without murmur Lungs clear Abdomen is soft with positive bowel sounds Extremities no cyanosis clubbing or edema Data : 03/24/20 04:42 03/24/20 04:42 Micro: Microbiology 03/23/20 11:50 Blood Culture - Preliminary Blood SPECIMEN COLLECTED 03/23/20 11:40 Blood Culture - Preliminary Blood SPECIMEN COLLECTED 03/22/20 04:00 Gram Stain - Final Cerebrospinal Fluid CSF Culture - Preliminary A&P Assessment and plan (1) Intractable nausea and vomiting: Intractable nausea and vomiting Blood sugar was 60 on admission however then overnight Lo increased to greater than 500. Patient went into DKA then transferred to the ICU and started on insulin drip. At this point patient is hungry, and I will start a consistent carb diet. As gap is closed at 13 discontinue insulin drip, will give some Lantus 10 units, moderate sliding scale insulin Await stool studies Discontinue vancomycin. At this point blood cultures are still negative Status: Acute (2) Diabetes mellitus type 1: See notations above Status: Acute (3) Dental caries: Previously on clindamycin, discontinued and started on broad-spectrum antibiotics with vancomycin and Zosyn due to DKA with concern for underlying sepsis. Discontinue vancomycin today. Consideration of discontinuing Zosyn soon. CT has been obtained here and there is no obvious dental abscess. Status: Acute Additional A&P Information Initial concern for headache and neck pain, lumbar puncture performed in the ED, Gram stain showing no organisms. Question of viral meningitis. Placed on doxycycline in case this is tickborne disease. Covid 19 was done and negative. Sepsis, resolved. Discontinue vancomycin. Blood culture still negative. Continue Zosyn at this point but likely discontinue soon. Elevated troponin: Likely secondary to tachycardia with DKA. Awaiting echocardiogram. DVT prophylaxis SCDs, low risk Full code Attestations Medical Necessity Statement*: Needs continued hospital stay for close monitoring following resolution of DKA to make sure no recurrent nausea and vomiting occurs that would impair recovery. We will arrange for transfer out of ICU later if no recurrent vomiting. Coding Level of Care Code Acute Md Pediatric Allergist for [facility] Diagnoses Intractable nausea and vomiting R11.2 Diabetes mellitus type 1 E10.9 Dental caries K02.9
[2020-03-24 08:18] LABS: Glucose Point of Care 66 mg/dL (70-110)
[2020-03-24] MEDS: doxycycline 100 mg Tablet PO ×2 (09:15→17:26)
[2020-03-24] MEDS: lactobacillus 1 Tablet 1 TAB PO ×4 (09:15→21:15)
[2020-03-24] MEDS: pantoprazole DR 40 mg Tablet PO (09:16)
[2020-03-24] MEDS: insulin glargine 100 units/1 mL 10 UNIT SUBCUT (09:18)
[2020-03-24 09:51] LABS: Glucose Point of Care 187 mg/dL (70-110)
[2020-03-24 09:51] LABS: Glucose Point of Care 98 mg/dL (70-110)
[2020-03-24 11:17] LABS: Glucose Point of Care 401 mg/dL (70-110)
--- NOTE | 2020-03-24 12:14 | PC.NURSE ---
blood sugar elevated-16 units given. pt. has requested to give her own nsulin and allowed. states she always waits 30 min. or so before she eats, after she takes her insulin. feels constantino mcfarlanet work for her. states in the past it hasnt worked.
[2020-03-24 12:29] LABS: Glucose Point of Care 258 mg/dL (70-110)
[2020-03-24 14:27] LABS: Glucose Point of Care 114 mg/dL (70-110)
[2020-03-24 14:34] LABS: Folate Level 11.9 ng/mL (4.8-37.3)
[2020-03-24 14:35] LABS: Vitamin B12 422 pg/mL (232-1245)
--- NOTE | 2020-03-24 17:21 | PC.NURSE ---
resting quietly in bed. more jolly this evening.
[2020-03-24 17:37] LABS: Glucose Point of Care 322 mg/dL (70-110)
[2020-03-24 18:40] LABS: Glucose Point of Care 136 mg/dL (70-110)
[2020-03-24 21:10] LABS: Glucose Point of Care 184 mg/dL (70-110)
[2020-03-25] VITALS (7 sets, daily range): BP systolic 106–123; BP diastolic 67–78; PULSE 84–94; RESP 18; TEMP 36.6–36.9; O2SAT 97–100
[2020-03-25 03:28] LABS: Glucose Point of Care 297 mg/dL (70-110)
[2020-03-25 04:43] LABS: Basophils % 0.4 %; Eosinophils % 0.8 %; Hematocrit 35.1 % (37.0-47.0); Hemoglobin 10.9 g/dL (11.5-15.3); Lymphocytes # 1.2 10^3/uL (0.8-4.8); Lymphocytes % 22.8 %; Mean Corpuscular HGB Conc 31.1 g/dL (30.0-36.0); Mean Corpuscular Hemoglobin 31.1 pg (28.0-34.0); Mean Corpuscular Volume 100.3 fL (81-99); Mean Platelet Volume 11.2 fL (7.4-10.4); Monocytes # 0.4 10^3/uL (0.2-0.9); Monocytes % 7.1 %; Neutrophils # 3.45 10^3/uL (1.8-7.7); Neutrophils % 68.5 %; Nucleated Red Blood Cells % 0 %; Platelet Count 204 10^3/cmm (130-400); Red Cell Distribution Width 12.5 % (12.1-15.1)
[2020-03-25 04:56] LABS: Alanine Aminotransferase 36 U/L (0-33); Albumin Level 3.3 g/dL (3.5-5.2); Alkaline Phosphatase 84 IU/L (35-105); Anion Gap 20.7 (5-19); Aspartate Amino Transferase 33 U/L (0-32); Blood Urea Nitrogen 4 mg/dL (6-20); Calcium 8.2 mg/dL (8.5-10.5); Carbon Dioxide 17 mmol/L (22-29); Chloride 104 mmol/L (98-107); Globulin 2.5 g/dL (1.3-4.6); Glomerular Filtration Rate 149.1 mL/min (90-130); Glucose 311 mg/dL (65-115); Osmolality Calculated 293 mOsm/kg (285-295); Potassium 3.7 mmol/L (3.5-5.1); Sodium 138 mmol/L (136-145); Total Bilirubin 0.3 mg/dL (0.15-1.2); Total Protein 5.8 g/dL (6.6-8.7)
[2020-03-25] MEDS: piperacillin-tazobactam 3.375 GM in sodium chloride 0.9% (plus) 50 ML IV (06:12)
[2020-03-25 07:32] LABS: Glucose Point of Care 148 mg/dL (70-110)
[2020-03-25] MEDS: pantoprazole DR 40 mg Tablet PO (07:36)
[2020-03-25] MEDS: doxycycline 100 mg Tablet PO (07:36)
[2020-03-25] MEDS: lactobacillus 1 Tablet 1 TAB PO (07:36)
--- NOTE | 2020-03-25 08:38 | P.DS_ITS ---
Discharge Providers Date of Admission: 03/23/20 04:25 Date of Discharge: March 25, 2020 Attending Provider at Admission: Ilda Gandara DO Attending Provider at Discharge: Lei Horan MD Diagnoses at Discharge Discharge Diagnosis (1) Intractable nausea and vomiting: Status: Acute Problem details: Resolved (2) Diabetes mellitus type 1: Status: Acute Problem details: Blood sugars under much better control. (3) Dental caries: Status: Acute Problem details: No abscess seen on face CT Reason for Visit Reason for Visit: fever, tooth pain, shaking Hospital Course Hospital Course: Apryl is a 24-year-old [id number]-antkcsajh diabetic who presented to the hospital with complaints of fever chills, nausea vomiting and acidosis. She had recently been on clindamycin for dental abscess. Secondary to her headache and neck pain, lumbar puncture was performed which did not show evidence of meningitis. White blood cell count in CSF was 1, red blood cells 0. After admission she developed DKA and was placed in the ICU on an insulin drip. With fluids, and insulin drip DKA resolved. Long-acting insulin was initiated. Through the night she did well with no recurrence of her nausea and vomiting. She had no tooth pain. She had no significant headache. The following morning blood sugar was 148. She did receive some Lantus around 3 AM. Anion gap had increased to 20 from 13. I discussed with the patient that this could herald another episode of DKA but she reported she was very familiar with DKA and can manage mild DKA at home and requested discharge. Risks discussed. Related to her that she will need to take another dose of Lantus tonight, and close monitoring of her blood sugar and management with carb counting with her short acting insulin which she already has at home. Facial CT done while in the hospital showed no abscess. Chest x-ray no infiltrates. Neck CT and head CT without concern. Abdominal ultrasound with enlarged liver but otherwise negative. Echocardiogram normal EF, no wall motion abnormalities. Physical Exam Narrative: EXAM NARRATIVE: No apparent distress No changes in exam from yesterday Discharge Data Data Completed and Pending: Completed Studies During Hospitalization Category Date Time Status CT facial bones w con [id number] Routine Cat Scan 03/23/20 10:[address] head wo con* 7 0450 Urgent Cat Scan 03/21/20 23:[address] neck w con* 70 491 Urgent Cat Scan 03/21/20 23:40 Completed XR chest 1V tarsha ble [id number] Routine Exams 03/22/20 18:03 Completed CV echo complete* [id number] Routine Ultrasound 03/23/20 10:54 Completed US abdomen comple te* [id number] Urgent Ultrasound 03/22/20 06:31 Completed Pending at discharge Category Date Time Status Blood Culture Sta t Lab 03/21/20 20:31 Results Blood Culture Sta t Lab 03/23/20 11:50 Results CSF Culture & Gra m Stain Stat Lab 03/22/20 04:00 Results Clostridioides Di fficile PCR Routin e Lab 03/22/20 08:36 Ordered Clostridioides Di fficile PCR Routin e Lab 03/22/20 10:55 Ordered Enteric Bacterial Panel by PCR Rout ine Lab 03/22/20 08:36 Ordered Enteric Bacterial Panel by PCR Rout ine Lab 03/22/20 10:55 Ordered Enteric Parasite Panel by PCR Routi ne Lab 03/22/20 08:36 Ordered Enteric Parasite Panel by PCR Routi ne Lab 03/22/20 10:55 Ordered Immunochemical Fe elana OCB Routine Lab 03/22/20 08:36 Ordered Immunochemical Fe elana OCB Routine Lab 03/22/20 10:55 Ordered Lactate CSF Routi ne Lab 03/22/20 04:00 Received Lactoferrin Routi ne Lab 03/22/20 08:36 Ordered Lactoferrin Routi ne Lab 03/22/20 10:55 Ordered Respiratory Viral Panel PCR Routine Lab 03/22/20 13:52 Ordered Tick Panel Urgent Lab 03/22/20 07:48 Received Labs from last 24 hours 03/25/20 03/25/20 03/25/20 07:27 03:25 03:10 WBC RBC Hgb Hct MCV MCH MCHC RDW Plt Count MPV Neut % (Auto) Lymph % (Auto) [place] % (Auto) Eos % (Auto) Baso % (Auto) Neut # (Auto) Lymph # (Auto) [place] # (Auto) Eos # (Auto) Baso # (Auto) Nucleated RBC % (a uto) Nucleated RBCs # Sodium 138 Potassium 3.7 Chloride 104 Carbon Dioxide 17 L Anion Gap 20.7 H BUN 4 L Creatinine 0.5 GFR Calculation 149.1 H Glucose 311 H POC Glucose 148 297 Calculated Osmolal ity 293 Calcium 8.2 L Total Bilirubin 0.3 AST 33 H ALT 36 H Alkaline Phosphata se 84 Total Protein 5.8 L Albumin 3.3 L Globulin 2.5 Vitamin B12 Folate 03/25/20 03/24/20 03/24/20 03:10 21:07 18:36 WBC 5.0 RBC 3.50 L Hgb 10.9 L Hct 35.1 L MCV 100.3 H MCH 31.1 MCHC 31.1 RDW 12.5 Plt Count 204 MPV 11.2 H Neut % (Auto) 68.5 Lymph % (Auto) 22.8 [place] % (Auto) 7.1 Eos % (Auto) 0.8 Baso % (Auto) 0.4 Neut # (Auto) 3.45 Lymph # (Auto) 1.2 [place] # (Auto) 0.4 Eos # (Auto) 0.0 Baso # (Auto) 0.0 Nucleated RBC % (a uto) 0 Nucleated RBCs # 0.0 Sodium Potassium Chloride Carbon Dioxide Anion Gap BUN Creatinine GFR Calculation Glucose POC Glucose 184 136 Calculated Osmolal ity Calcium Total Bilirubin AST ALT Alkaline Phosphata se Total Protein Albumin Globulin Vitamin B12 Folate 03/24/20 03/24/20 03/24/20 16:38 13:48 13:48 WBC RBC Hgb Hct MCV MCH MCHC RDW Plt Count MPV Neut % (Auto) Lymph % (Auto) [place] % (Auto) Eos % (Auto) Baso % (Auto) Neut # (Auto) Lymph # (Auto) [place] # (Auto) Eos # (Auto) Baso # (Auto) Nucleated RBC % (a uto) Nucleated RBCs # Sodium Potassium Chloride Carbon Dioxide Anion Gap BUN Creatinine GFR Calculation Glucose POC Glucose 322 Calculated Osmolal ity Calcium Total Bilirubin AST ALT Alkaline Phosphata se Total Protein Albumin Globulin Vitamin B12 422 Folate 11.9 03/24/20 03/24/20 03/24/20 13:44 12:26 11:15 WBC RBC Hgb Hct MCV MCH MCHC RDW Plt Count MPV Neut % (Auto) Lymph % (Auto) [place] % (Auto) Eos % (Auto) Baso % (Auto) Neut # (Auto) Lymph # (Auto) [place] # (Auto) Eos # (Auto) Baso # (Auto) Nucleated RBC % (a uto) Nucleated RBCs # Sodium Potassium Chloride Carbon Dioxide Anion Gap BUN Creatinine GFR Calculation Glucose POC Glucose 114 258 401 Calculated Osmolal ity Calcium Total Bilirubin AST ALT Alkaline Phosphata se Total Protein Albumin Globulin Vitamin B12 Folate 03/24/20 03/24/20 09:14 08:18 WBC RBC Hgb Hct MCV MCH MCHC RDW Plt Count MPV Neut % (Auto) Lymph % (Auto) [place] % (Auto) Eos % (Auto) Baso % (Auto) Neut # (Auto) Lymph # (Auto) [place] # (Auto) Eos # (Auto) Baso # (Auto) Nucleated RBC % (a uto) Nucleated RBCs # Sodium Potassium Chloride Carbon Dioxide Anion Gap BUN Creatinine GFR Calculation Glucose POC Glucose 187 98 Calculated Osmolal ity Calcium Total Bilirubin AST ALT Alkaline Phosphata se Total Protein Albumin Globulin Vitamin B12 Folate Vitals: Last Vital Signs Temp 98.2 F 03/25/20 07:22 Pulse 94 03/25/20 07:22 Resp 18 03/25/20 07:22 BP 106/67 03/25/20 07:22 Pulse Ox 98 03/25/20 07:22 Discharge Plan Discharge Patient Disposition: Home, Self-Care Condition: Stable Prescriptions: New Lantus Solostar U-100 Insulin 100 unit/mL (3 mL) insulin pen 10 unit SUBCUT DAILY Qty: 3 RF: 0 Continued Novolin R Regular U-100 Insuln 100 unit/mL Solution See Rx Instructions .ROUTE .COMPLEX RF: 0 Discontinued clindamycin HCl 300 mg capsule 300 mg PO TID 7 Days Qty: 21 RF: 0 hydrocodone-acetaminophen 5-325 mg tablet 1 tab PO Q6H PRN (Reason: pain) Qty: 14 RF: 0 Discharge Diet: Diabetic Discharge Activity: Increase activity as tolerated Activity Restrictions/Additional Instructions: Encourage fluids Follow-up with primary care provider next week Discharge Attestations Time Spent in Discharge Care*: greater than 30 min Quality Metrics Clinical Quality Measures During this hospital stay, did patient experience: None Coding Level of Care Code Acute Postal Mail Carrier for g Fwd Diagnoses Intractable nausea and vomiting R11.2 Diabetes mellitus type 1 E10.9 Dental caries K02.9
--- NOTE | 2020-03-25 09:38 | PC.NURSE ---
Discharge Paperwork given and patient voiced understanding. Informed patient that script for Lantus has been sent to [facility] in and she will need to take a dose this evening per Dr. Horan Verbal Order. IV's have been removed and intact. [place], APPEALS REPRESENTATIVE
[2020-03-26 12:00] LABS: Lyme AB Screen <0.90 index
[2020-04-03 16:41] LABS: RMSF IGG NOT DETECTED; RMSF IGM NOT DETECTED
[2020-04-03 17:41] LABS: E. Chaffeensis AB IGG <1:64; E. Chaffeensis AB IGM <1:20
== END 2020-03-25 10:00 | disposition home or self-care (01) | DRG 639 ==
LOC: ER 03-22 06:57 → MEDSURG 03-22 09:22 → ICU 03-23 04:18 → MEDSURG 03-24 18:06
PROVIDERS: Emergency Medicine; Family Medicine; Hospitalist; Physician Assistant; Admitting Provider Family Medicine; Visit Provider Internal Medicine
DX: E10.10 Type 1 diabetes mellitus with ketoacidosis without coma (principal); K02.9 Dental caries, unspecified
CPT/HCPCS: 12345; 36415; 36416; 36600; 70450; 70487; 70491; 71045; 76700; 80048; 80053; 80500; 81003; 82009; 82607; 82728; 82746; 82803; 82945; 82962; 83036; 83605; 83615; 83690; 83735; 84100; 84145; 84157; 84443; 84484; 84703; 85025; 85378; 85610; 85651; 85730; 86140; 86308; 86618; 86666; 86705; 86706; 86709; 86757; 86803; 87040; 87070; 87075; 87205; 87340; 87635; 89050; 93005; 93306; 96372; 96375; 99284; G0378; J1815 ×2; J2270; J2405; J2543; J2550; J2765; J3370; J3490; J7030; J7050; J7799; Q9967

== ENCOUNTER 2021-06-28 00:45 | Emergency (ER) | payer MEDICAID, SELFPAY ==
--- NOTE | 2021-06-28 00:50 | ED_ITS ---
HPI - Abdominal Pain General: Chief Complaint: Nausea/Vomiting/Diarrhea Stated Complaint: Vomiting, abd Pain Time Seen by Provider: 06/28/21 00:50 History of Present Illness: HPI narrative: 25-year-old female comes in with nausea and vomiting for the last 5 hours. Patient has reported that she ate some food that she found maggots in it and since then she has been ill. Patient does have a history of diabetes type 1. Patient does report that her blood suga r has been normal if not maybe a little low. Patient appears mildly unwell but not toxic. Patient is alert oriented. Associated Symptoms: Reports nausea and vomiting Related Data: Date of Last Menstrual Period: 03/07/20 Review of Systems General: Reports: 10 or more systems reviewed and unremarkable except in HPI and below GI: Reports: nausea and vomiting [facility] ED PFSH: Medical History (Updated 06/28/21 @ 02:35 by LEN Pedraza) Diabetes mellitus type 1 Blood sugars under much better control. Surgical History History of dilation and curettage History of lymph node excision Left arm Family History Mother Hypothyroidism Father Psychiatric illness Bipolar disorder Social History Smoking and tobacco status: never smoked Alcohol intake: never Household members: spouse Marital status: Female Reproductive History: Date of last menstrual period: 03/07/20 Physical Exam Const: COMMON NORMALS: no acute distress and patient oriented x3 GENERAL APPEARANCE: cooperative HENMT: COMMON NORMALS: normocephalic and Normal external nose present HEAD & SCALP: normal to inspection and normocephalic NOSE: Normal external nose present MOUTH: Normal oral and palatal mucosa present Eye: GENERAL EYE: appearance normal, both eyes and all related structures Neck/C-Spine: COMMON NORMALS: full ROM Lymph: LYMPHATIC: no lymphadenopathy noted Chest: COMMONS NORMALS: normal inspection of the chest Resp: COMMON NORMALS: normal respiratory effort EFFORT & INSPECTION: Yes able to speak in complete sentences Cardio: COMMON NORMALS: regular rate and regular rhythm RATE: regular rate RHYTHM: regular rhythm GI: COMMON NORMALS: Soft to palpation AUSCULTATION: Yes normoactive bowel sounds PALPATION: Yes Soft to palpation : COMMON NORMALS: Yes no CVA tenderness BLADDER/KIDNEY EXAM: Yes no CVA tenderness Back/Pelvis: COMMON NORMALS: no CVA tenderness and thoracic and lumbar spine normal to inspection Extremity: COMMON NORMALS: normal to inspection Neuro: COMMON NORMALS: patient oriented x3 and moves all extremities Psych: COMMON NORMALS: mental status grossly normal and cooperative Skin: COMMON NORMALS: no rashes or lesions noted GENERAL SKIN EXAM: no rashes or lesions noted Course ED course: , reviewed patient with Dr. Carey who agreed to plan for food poisoning with fluids and 10 units of IV insulin for elevated glucose. Patient reports feeling better after first liter. Plan to discharge patient after second liter and decrease in blood glucose Vital Signs: Vital signs: Vital Signs Temperature 97.8 F 06/28/21 00:54 Pulse Rate 76 06/28/21 03:44 Respiratory Rate 18 06/28/21 03:44 Blood Pressure 116/78 06/28/21 03:44 Pulse Oximetry 100 06/28/21 03:44 MDM - Abdominal Pain MDM Narrative: Medical decision making narrative: 25-year-old female comes in today for complaints of nausea and vomiting. Patient reports eating some food that she found maggots in and then becoming ill shortly thereafter. Patient appears mildly unwell but not toxic. Patient does have a history of diabetes type 1. Vital signs noted slight elevation in pulse at 124 and respirations at 24. Patient was afebrile. Differential diagnosis includes gastroenteritis, diabetic ketoacidosis, dehydration. Laboratory values noticed a normal CBC, CMP was normal except for some slight elevation and liver enzymes which was normal for patient when compared to previous history, blood glucose was 467. Ketones was negative. Patient was given 2 L of IV fluid and 10 units of IV insulin. Lab Data: Labs: Lab Results 06/28/21 06/28/21 06/28/21 01:16 01:16 01:16 WBC 6.0 10^3/uL 10^3/ uL (4.0-10.0) RBC 4.13 10^6/uL 10^6 /uL (4.1-5.3) Hgb 12.9 g/dL g/dL (11.5-15.3) Hct 39.3 % % (37.0-47.0) MCV 95.2 fl fl (81-99) MCH 31.2 pg pg (28.0-34.0) MCHC 32.8 g/dL g/dL (30.0-36.0) RDW 12.8 % % (12.1-15.1) Plt Count 256 10^3/cmm 10^3 /cmm (130-400) MPV 11.9 fL H fL (7.4-10.4) Neut % (Auto) 58.2 % % Lymph % (Auto) 31.1 % % [place] % (Auto) 6.5 % % Eos % (Auto) 3.2 % % Baso % (Auto) 0.8 % % Neut # (Auto) 3.48 10^3/uL 10^3 /uL (1.8-7.7) Lymph # (Auto) 1.9 10^3/uL 10^3/ uL (0.8-4.8) [place] # (Auto) 0.4 10^3/uL 10^3/ uL (0.2-0.9) Eos # (Auto) 0.2 10^3/uL 10^3/ uL (0.0-0.8) Baso # (Auto) 0.1 10^3/uL 10^3/ uL (0.0-0.1) Nucleated RBC % (a uto) 0 % % Nucleated RBCs # 0.0 /100WBC /100W BC Sodium 136 mmol/L mmol/L (136-145) Potassium 4.2 mmol/L mmol/L (3.5-5.1) Chloride 97 mmol/L L mmol/ L (98-107) Carbon Dioxide 24 mmol/L mmol/L (22-29) Anion Gap 19.2 H (5-19) BUN 11 mg/dL mg/dL (6-20) Creatinine 0.5 mg/dL mg/dL (0.5-0.9) GFR Calculation 148.0 mL/min H mL /min (90-130) Glucose 467 mg/dL H mg/dL (65-115) POC Glucose Calculated Osmolal ity 302 mOsm/kg H mOs m/kg (285-295) Lactic Acid Calcium 9.3 mg/dL mg/dL (8.5-10.5) Total Bilirubin 0.4 mg/dL mg/dL (0.15-1.2) AST 67 U/L H U/L (0-32) ALT 72 U/L H U/L (0-33) Alkaline Phosphata se 152 IU/L H IU/L (35-105) Total Protein 6.6 g/dL g/dL (6.6-8.7) Albumin 3.9 g/dL g/dL (3.5-5.2) Globulin 2.7 g/dL g/dL (1.3-4.6) Lipase 29 U/L U/L (13-60) Urine Color Urine Appearance Urine pH Ur Specific Gravit y Urine Protein Urine Glucose (UA) Urine Ketones Urine Blood Urine Nitrate Urine Bilirubin Urine Urobilinogen Ur Leukocyte Georgette ase Urine HCG, Qual Negative (Negative) Serum Ketones 06/28/21 06/28/21 06/28/21 01:16 01:16 01:16 WBC RBC Hgb Hct MCV MCH MCHC RDW Plt Count MPV Neut % (Auto) Lymph % (Auto) [place] % (Auto) Eos % (Auto) Baso % (Auto) Neut # (Auto) Lymph # (Auto) [place] # (Auto) Eos # (Auto) Baso # (Auto) Nucleated RBC % (a uto) Nucleated RBCs # Sodium Potassium Chloride Carbon Dioxide Anion Gap BUN Creatinine GFR Calculation Glucose POC Glucose Calculated Osmolal ity Lactic Acid 2.4 mmol/L H mmol /L (0.5-2.2) Calcium Total Bilirubin AST ALT Alkaline Phosphata se Total Protein Albumin Globulin Lipase Urine Color Yellow (Yellow) Urine Appearance Clear (CLEAR) Urine pH 5 (5-7) Ur Specific Gravit y 1.010 (1.005-1.030) Urine Protein Neg (Negative) Urine Glucose (UA) 4+ H (Normal) Urine Ketones Negative (Negative) Urine Blood Neg (Negative) Urine Nitrate Negative (Negative) Urine Bilirubin Neg (Negative) Urine Urobilinogen Norm mg/dL mg/dL (Negative) Ur Leukocyte Georgette ase Negative (Negative) Urine HCG, Qual Serum Ketones Negative (Negative) 06/28/21 03:24 WBC RBC Hgb Hct MCV MCH MCHC RDW Plt Count MPV Neut % (Auto) Lymph % (Auto) [place] % (Auto) Eos % (Auto) Baso % (Auto) Neut # (Auto) Lymph # (Auto) [place] # (Auto) Eos # (Auto) Baso # (Auto) Nucleated RBC % (a uto) Nucleated RBCs # Sodium Potassium Chloride Carbon Dioxide Anion Gap BUN Creatinine GFR Calculation Glucose POC Glucose 272 mg/dL H mg/dL (70-110) Calculated Osmolal ity Lactic Acid Calcium Total Bilirubin AST ALT Alkaline Phosphata se Total Protein Albumin Globulin Lipase Urine Color Urine Appearance Urine pH Ur Specific Gravit y Urine Protein Urine Glucose (UA) Urine Ketones Urine Blood Urine Nitrate Urine Bilirubin Urine Urobilinogen Ur Leukocyte Georgette ase Urine HCG, Qual Serum Ketones Discharge Plan Discharge Patient Disposition: Home Clinical Impression: Food poisoning Diabetes mellitus type 1 Qualifiers: Diabetes mellitus complication status: with other specified complication Qualified Code(s): E10.69 - Type 1 diabetes mellitus with other specified complication Condition: Stable Prescriptions: New ondansetron HCl 4 mg tablet 4 mg PO Q8H PRN (Reason: nausea and vomiting) Qty: 7 RF: 0 No Action Novolin R Regular U-100 Insuln 100 unit/mL Solution See Rx Instructions .ROUTE .COMPLEX RF: 0 Lantus Solostar U-100 Insulin 100 unit/mL (3 mL) insulin pen 10 unit SUBCUT DAILY Qty: 3 RF: 0 Discharge Orders: Discharge ED (Routine); Ordered 06/28/21 Ordered By: Stanley Sanchez Discharge Diet: Advance as tolerated Discharge Activity: Increase activity as tolerated Patient Instructions: Food Poisoning (ED), Opioid Safety Activity Restrictions/Additional Instructions: Drink plenty of fluids. Use Zofran, ondansetron, as needed for nausea. Slowly increase diet over the next 24 to 48 hours. Follow-up with primary care as needed. Return to the ED for worsening symptoms. Coding Level of Care Code ED Bullet Assembly Press Operator for Jose Fwfrancine Exam Comprehensive
[2021-06-28 00:54] VITALS: BP 116/78; PULSE 124; RESP 24; TEMP 36.6; O2SAT 99; BMI 18.8
[2021-06-28 01:26] LABS: Add Urine Microscopic? NO; Charge for UA Resulting for Rev
[2021-06-28 01:28] LABS: Protein Urine Neg (Negative); Urine Appearance Clear (CLEAR); Urine Color Yellow (Yellow); pH Urine 5 (5-7)
[2021-06-28 01:29] LABS: Bilirubin Urine Neg (Negative); Blood Urine Neg (Negative); Glucose Urine UA 4+ (Normal); Ketones Urine Negative (Negative); Leukocyte Esterase Urine Negative (Negative); Nitrate Urine Negative (Negative); Urobilinogen Urine Norm (Negative)
[2021-06-28 01:33] LABS: Basophils # 0.1 10^3/uL (0.0-0.1); Basophils % 0.8 %; Eosinophils # 0.2 10^3/uL (0.0-0.8); Eosinophils % 3.2 %; Hematocrit 39.3 % (37.0-47.0); Hemoglobin 12.9 g/dL (11.5-15.3); Lymphocytes # 1.9 10^3/uL (0.8-4.8); Lymphocytes % 31.1 %; Mean Corpuscular HGB Conc 32.8 g/dL (30.0-36.0); Mean Corpuscular Hemoglobin 31.2 pg (28.0-34.0); Mean Corpuscular Volume 95.2 fl (81-99); Mean Platelet Volume 11.9 fL (7.4-10.4); Monocytes # 0.4 10^3/uL (0.2-0.9); Monocytes % 6.5 %; Neutrophils # 3.48 10^3/uL (1.8-7.7); Neutrophils % 58.2 %; Nucleated Red Blood Cells % 0 %; Platelet Count 256 10^3/cmm (130-400); Red Blood Count 4.13 10^6/uL (4.1-5.3); Red Cell Distribution Width 12.8 % (12.1-15.1)
[2021-06-28 01:42] LABS: Ketone (Acetest) Serum Negative (Negative)
[2021-06-28 01:47] LABS: Lactic Sepsis W/Reflex 2.4 mmol/L (0.5-2.2)
[2021-06-28 01:48] LABS: Anion Gap 19.2 (5-19); Blood Urea Nitrogen 11 mg/dL (6-20); Carbon Dioxide 24 mmol/L (22-29); Chloride 97 mmol/L (98-107); Potassium 4.2 mmol/L (3.5-5.1); Sodium 136 mmol/L (136-145)
[2021-06-28 01:49] LABS: Alanine Aminotransferase 72 U/L (0-33); Albumin Level 3.9 g/dL (3.5-5.2); Alkaline Phosphatase 152 IU/L (35-105); Aspartate Amino Transferase 67 U/L (0-32); Calcium 9.3 mg/dL (8.5-10.5); Globulin 2.7 g/dL (1.3-4.6); Glucose 467 mg/dL (65-115); Lipase 29 U/L (13-60); Osmolality Calculated 302 mOsm/kg (285-295); Total Bilirubin 0.4 mg/dL (0.15-1.2); Total Protein 6.6 g/dL (6.6-8.7)
[2021-06-28] MEDS: insulin regular-human 100 units/1 mL 10 UNIT IVP (02:18)
[2021-06-28] MEDS: sodium chloride 0.9% 1,000 ML 999 ML IV (02:19)
[2021-06-28 02:26] VITALS: BP 116/78; PULSE 78; RESP 18; O2SAT 100
[2021-06-28 03:08] LABS: Reflex Lactate Order REFLEX LACTIC ORDERD
[2021-06-28 03:28] LABS: Glucose Point of Care 272 mg/dL (70-110)
[2021-06-28 03:44] VITALS: BP 116/78; PULSE 76; RESP 18; O2SAT 100
== END 2021-06-28 03:46 | disposition home or self-care (01) ==
PROVIDERS: Emergency Provider Nurse Practitioner Family
DX: A05.9 Bacterial foodborne intoxication, unspecified (principal); E10.65 Type 1 diabetes mellitus with hyperglycemia
CPT/HCPCS: 36416; 80053; 81003; 81025; 82009; 82962; 83605; 83690; 85025; 96361; 96374; 96375; 99283; J1815; J7030

== ENCOUNTER 2022-06-07 22:06 | Emergency (ER) | payer BC, MEDICAID, SELFPAY ==
[2022-06-07 22:12] VITALS: BP 113/70; PULSE 119; RESP 18; TEMP 36.8; O2SAT 98
[2022-06-07 23:25] LABS: Add Urine Microscopic? NO; Charge for UA Resulting for Rev
--- NOTE | 2022-06-07 23:25 | W.ED.NAVMDI ---
HPI - Nausea/Vomiting/Diarrhea General: Chief complaint: Upper Respiratory Infection Stated complaint: Fever Time Seen by Provider: 06/07/22 22:13 History of Present Illness: Patient is a 26-year-old female comes to the ED with nausea, vomiting and diarrhea. Patient is a type I diabetic. Her symptoms started approximately 2 days ago. She has had a decreased appetite and having trouble keeping food and fluids down. She has been able to take Tylenol and Motrin to help with her fevers. Endorses some nasal drainage/congestion, chills and body aches. Denies any cough, abdominal pain or bladder symptoms. At at 5 PM her blood sugar was 230 and she took 3 units of insulin. Denies any known COVID exposure. Associated nausea: Yes Associated symtoms: Reports nausea; Denies change in vision, chest pain, dysuria, fatigue, headache(s) or palpitations Review of Systems Const: Reports: fever(s), chills, body aches and change in appetite (Decreased appetite); Denies: fatigue Eyes: Denies: change in vision or eye discomfort ENMT: Reports: nasal discharge and nasal congestion; Denies: throat pain or odynophagia Card: Denies: chest pain, palpitations, edema, swelling of feet/ankles, dyspnea on exertion or orthopnea Resp: Denies: dyspnea, productive cough or non-productive cough GI: Reports: nausea, vomiting and diarrhea; Denies: abdominal pain, constipation or hematochezia : Denies: flank pain, dysuria or hematuria Musc: Denies: neck pain, back pain or extremity swelling Skin/Breast: Denies: rash or new lesions Neuro: Denies: headache(s), numbness in extremities or weakness in extremities PFSH ED PFSH: Medical History Diabetes mellitus type 1 Blood sugars under much better control. Surgical History History of dilation and curettage History of lymph node excision Left arm Family History Mother Hypothyroidism Father Psychiatric illness Bipolar disorder Social History Smoking and tobacco status: never smoked Alcohol intake: never Household members: spouse Marital status: Female Reproductive History: Date of last menstrual period: 03/07/20 Physical Exam Const: COMMON NORMALS: patient oriented x3, healthy appearing and alert GENERAL APPEARANCE: cooperative and comfortable HENMT: COMMON NORMALS: normocephalic HEAD & SCALP: normocephalic MOUTH: Normal oral and palatal mucosa present THROAT: posterior oropharynx normal and uvula midline Eye: COMMON NORMALS: Equal, round and reactive pupils present PUPIL: Yes Equal, round and reactive pupils present Neck/C-Spine: COMMON NORMALS: supple GENERAL: Yes normal visual inspection Resp: COMMON NORMALS: normal respiratory effort, No retractions, No use of accessory muscles and clear to auscultation bilaterally AUSCULTATION: clear to auscultation bilaterally Cardio: COMMON NORMALS: regular rate, regular rhythm, S1 normal heart sound present, S2 normal heart sound present, No gallops present (Cardio), No clicks present (Cardio), No murmurs present (Cardio) and Peripheral pulses 2+ throughout RATE: regular rate RHYTHM: regular rhythm HEART SOUNDS: S1 normal heart sound present and S2 normal heart sound present PERIPHERAL PULSES: Peripheral pulses 2+ throughout GI: COMMON NORMALS: Normal to inspection, nondistended, normoactive bowel sounds present, Soft to palpation, non-tender and no masses PALPATION: Yes Soft to palpation : COMMON NORMALS: Yes no CVA tenderness BLADDER/KIDNEY EXAM: Yes no CVA tenderness Back/Pelvis: COMMON NORMALS: no CVA tenderness Extremity: COMMON NORMALS: normal to inspection Neuro: COMMON NORMALS: patient oriented x3 SENSORIUM/ORIENTATION: Yes alert GAIT: Yes Normal gait present Skin: GENERAL SKIN EXAM: dry skin Course Vital Signs: Vital signs: Vital Signs Temperature 98.3 F 06/07/22 22:12 Pulse Rate 93 06/08/22 00:11 Respiratory Rate 17 06/08/22 00:11 Blood Pressure 107/71 06/08/22 00:11 Pulse Oximetry 98 06/08/22 00:11 Oxygen Delivery Me thod 06/07/22 22:12 MDM - Nausea/Vomiting/Diarrhea Medical Decision Making Patient is a 26-year-old female comes to the ED with nausea, vomiting and diarrhea. Patient is a type I diabetic. Her symptoms started approximately 2 days ago. She has had a decreased appetite and having trouble keeping food and fluids down. Endorses some nasal drainage/congestion, chills and body aches. Denies any cough, abdominal pain or bladder symptoms. Vitals are stable. Exam of patient is benign. Blood glucose was 333 but the rest of CBC and CMP were unremarkable. hCG negative and UA was unremarkable as well. Patient was given 1 L of IV fluids and Zofran and her symptoms of nausea improved. She was able to tolerate p.o. fluids here in the ED. She was stable for discharge home and diagnosed with viral syndrome and hyperglycemia. Told to follow-up with her PCP within the next week for reevaluation. Return to ED precautions given. Patient understood and agreed with plan. Lab Data I reviewed the patient's lab results. : 06/07/22 23:20 06/07/22 23:20 Laboratory Results WBC 5.8 10^3/uL (4.0-10.0) 06/07/22 23:20 RBC 4.08 10^6/uL (4.1-5.3) L 06/07/22 23:20 Hgb 13.3 g/dL (11.5-15.3) 06/07/22 23:20 Hct 40.4 % (37.0-47.0) 06/07/22 23:20 MCV 99.0 fl (81-99) 06/07/22 23:20 MCH 32.6 pg (28.0-34.0) 06/07/22 23:20 MCHC 32.9 g/dL (30.0-36.0) 06/07/22 23:20 RDW 12.7 % (12.1-15.1) 06/07/22 23:20 Plt Count 235 10^3/cmm (130-400) 06/07/22 23:20 MPV 11.1 fL (7.4-10.4) H 06/07/22 23:20 Neut % (Auto) 44.2 % 06/07/22 23:20 Lymph % (Auto) 40.6 % 06/07/22 23:20 [place] % (Auto) 9.4 % 06/07/22 23:20 Eos % (Auto) 4.9 % 06/07/22 23:20 Baso % (Auto) 0.7 % 06/07/22 23:20 Neut # (Auto) 2.56 10^3/uL (1.8-7.7) 06/07/22 23:20 Lymph # (Auto) 2.3 10^3/uL (0.8-4.8) 06/07/22 23:20 [place] # (Auto) 0.5 10^3/uL (0.2-0.9) 06/07/22 23:20 Eos # (Auto) 0.3 10^3/uL (0.0-0.8) 06/07/22 23:20 Baso # (Auto) 0.0 10^3/uL (0.0-0.1) 06/07/22 23:20 Nucleated RBC % (auto) 0 % 06/07/22 23:20 Nucleated RBCs # 0.0 /100WBC 06/07/22 23:20 Sodium 133 mmol/L (136-145) L 06/07/22 23:20 Potassium 4.3 mmol/L (3.5-5.1) 06/07/22 23:20 Chloride 90 mmol/L (98-107) L 06/07/22 23:20 Carbon Dioxide 20 mmol/L (22-29) L 06/07/22 23:20 Anion Gap 27.3 (5-19) H 06/07/22 23:20 BUN 16 mg/dL (6-20) 06/07/22 23:20 Creatinine 0.8 mg/dL (0.5-0.9) 06/07/22 23:20 GFR Calculation 103.0 mL/min (90-130) 06/07/22 23:20 Glucose 333 mg/dL (65-115) H 06/07/22 23:20 Calculated Osmolality 286 mOsm/kg (285-295) 06/07/22 23:20 Calcium 10.1 mg/dL (8.5-10.5) 06/07/22 23:20 Total Bilirubin 0.5 mg/dL (0.15-1.2) 06/07/22 23:20 AST 55 U/L (0-32) H 06/07/22 23:20 ALT 118 U/L (0-33) H 06/07/22 23:20 Alkaline Phosphatase 163 U/L (35-105) H 06/07/22 23:20 Total Protein 7.5 g/dL (6.6-8.7) 06/07/22 23:20 Albumin 4.0 g/dL (3.5-5.2) 06/07/22 23:20 Globulin 3.5 g/dL (1.3-4.6) 06/07/22 23:20 Lipase 38 U/L (13-60) 06/07/22 23:20 HCG, Qual Negative (Negative) 06/07/22 23:20 Urine Color Straw (Yellow) 06/07/22 22:43 Urine Appearance Clear (CLEAR) 06/07/22 22:43 Urine pH 5 (5-7) 06/07/22 22:43 Ur Specific [place] 1.010 (1.005-1.030) 06/07/22 22:43 Urine Protein Neg (Negative) 06/07/22 22:43 Urine Glucose (UA) 4+ (Normal) H 06/07/22 22:43 Urine Ketones 1+ (Negative) H 06/07/22 22:43 Urine Blood Neg (Negative) 06/07/22 22:43 Urine Nitrate Negative (Negative) 06/07/22 22:43 Urine Bilirubin Neg (Negative) 06/07/22 22:43 Urine Urobilinogen Neg mg/dL (Negative) 06/07/22 22:43 Ur Leukocyte Esterase Negative (Negative) 06/07/22 22:43 Discharge Plan Discharge Patient Disposition: Home Clinical Impression: Viral syndrome, Hyperglycemia due to type 1 diabetes mellitus Condition: Stable Prescriptions: New ondansetron 4 mg tablet,disintegrating 4 mg PO Q8H PRN (Reason: nausea and vomiting) Qty: 15 0RF No Action ondansetron HCl 4 mg tablet 4 mg PO Q8H PRN (Reason: nausea and vomiting) Qty: 7 0RF Novolin R Regular U-100 Insuln 100 unit/mL Solution See Rx Instructions .ROUTE .COMPLEX Rx Instructions: sliding scale at home Lantus Solostar U-100 Insulin 100 unit/mL (3 mL) insulin pen 10 unit SUBCUT DAILY Qty: 3 0RF Discharge Orders: Discharge ED (Routine); Ordered 06/08/22 Ordered By: Sammy Hastings Discharge Diet: Regular Discharge Activity: Increase activity as tolerated Patient Instructions: Viral Syndrome (ED) Activity Restrictions/Additional Instructions: Follow-up with medical provider as directed in the next 5 to 7 days for reevaluation. Make sure you drink plenty of fluids and stay hydrated. Take medications as prescribed. Return to the ER or your medical provider if condition worsens. Please read and understand discharge instructions. Thank you for choosing [facility] for your healthcare needs today. Please realize this is an emergency room and that we are providing you with a medical screening exam and this may not be complete and all inclusive of all the testing and or work up that you may need to determine your ailment or severity of your illness. It is very important that you follow up as instructed or that you return to the Emergency Department should you have concerns or if your condition changes or worsens in any way. Coding Level of Care Code ED Inspector Agricultural [employer]ities for Jose Noriega Exam Comprehensive
[2022-06-07 23:28] LABS: Basophils % 0.7 %; Eosinophils # 0.3 10^3/uL (0.0-0.8); Eosinophils % 4.9 %; Hematocrit 40.4 % (37.0-47.0); Hemoglobin 13.3 g/dL (11.5-15.3); Lymphocytes # 2.3 10^3/uL (0.8-4.8); Lymphocytes % 40.6 %; Mean Corpuscular HGB Conc 32.9 g/dL (30.0-36.0); Mean Corpuscular Hemoglobin 32.6 pg (28.0-34.0); Mean Platelet Volume 11.1 fL (7.4-10.4); Monocytes # 0.5 10^3/uL (0.2-0.9); Monocytes % 9.4 %; Neutrophils # 2.56 10^3/uL (1.8-7.7); Neutrophils % 44.2 %; Nucleated Red Blood Cells % 0 %; Platelet Count 235 10^3/cmm (130-400); Red Blood Count 4.08 10^6/uL (4.1-5.3); Red Cell Distribution Width 12.7 % (12.1-15.1); White Blood Count 5.8 10^3/uL (4.0-10.0)
[2022-06-07 23:30] LABS: Bilirubin Urine Neg (Negative); Blood Urine Neg (Negative); Glucose Urine UA 4+ (Normal); Ketones Urine 1+ (Negative); Leukocyte Esterase Urine Negative (Negative); Nitrate Urine Negative (Negative); Protein Urine Neg (Negative); Urine Appearance Clear (CLEAR); Urine Color Straw (Yellow); Urobilinogen Urine Neg (Negative); pH Urine 5 (5-7)
[2022-06-07 23:39] LABS: HCG, Serum Qual Negative (Negative)
[2022-06-07] MEDS: sodium chloride 0.9% 1,000 ML 999 ML IV (23:40)
[2022-06-07] MEDS: ondansetron 2 mg/ML SDV 2 mL 4 MG IVP (23:40)
[2022-06-07 23:48] LABS: Blood Urea Nitrogen 16 mg/dL (6-20); Calcium 10.1 mg/dL (8.5-10.5); Globulin 3.5 g/dL (1.3-4.6); Lipase 38 U/L (13-60); Osmolality Calculated 286 mOsm/kg (285-295); Total Bilirubin 0.5 mg/dL (0.15-1.2); Total Protein 7.5 g/dL (6.6-8.7)
[2022-06-08 00:05] LABS: Alanine Aminotransferase 118 U/L (0-33); Alkaline Phosphatase 163 U/L (35-105); Carbon Dioxide 20 mmol/L (22-29); Chloride 90 mmol/L (98-107); Glucose 333 mg/dL (65-115); Sodium 133 mmol/L (136-145)
[2022-06-08 00:11] VITALS: BP 107/71; PULSE 93; RESP 17; O2SAT 98
[2022-06-08 00:19] LABS: Anion Gap 27.3 (5-19); Potassium 4.3 mmol/L (3.5-5.1)
[2022-06-08] MEDS: HYDROcodone-acetaminophen 5-325 mg Tablet 1 TAB PO (00:19)
[2022-06-08 00:20] LABS: Aspartate Amino Transferase 55 U/L (0-32)
[2022-06-08 00:58] LABS: Glucose Point of Care 110 mg/dL (70-110)
[2022-06-08 01:00] VITALS: PULSE 93; RESP 16; O2SAT 98
== END 2022-06-08 00:55 | disposition home or self-care (01) ==
PROVIDERS: Emergency Provider Physician Assistant
DX: B34.9 Viral infection, unspecified (principal); E10.65 Type 1 diabetes mellitus with hyperglycemia; Z79.4 Long term (current) use of insulin
CPT/HCPCS: 36416; 80053; 81003; 82962; 83690; 84703; 85025; 96361; 96374; 99284; J2405; J7030

== ENCOUNTER 2022-08-03 23:47 | Emergency (ER) | payer BC, MEDICAID, SELFPAY ==
[2022-08-03 23:58] VITALS: BP 122/78; PULSE 92; RESP 26; TEMP 36.8; O2SAT 100; BMI 20.3
[2022-08-04 00:20] LABS: Glucose Point of Care > 600 mg/dL (70-110)
--- NOTE | 2022-08-04 00:45 | XRR_ITS ---
PROCEDURE INFORMATION: Exam: XR Chest Exam date and time: 08/04/2022 1:53 AM Age: 27 years old Clinical indication: Shortness of breath; Additional info: SOB TECHNIQUE: Imaging protocol: Radiologic exam of the chest. Views: 1 view. COMPARISON: CR XR chest 1V portable [id number] 03/22/2020 8:38 PM FINDINGS: Lungs: The lungs appear grossly clear. Minimal bibasilar opacities may represent atelectasis. No consolidation. Pleural spaces: Unremarkable. No pleural effusion. No pneumothorax. Heart/Mediastinum: The cardiomediastinal silhouette is stable in appearance. Bones/joints: Unremarkable. XR/XR chest 1V portable [id number] IMPRESSION: No acute radiographic findings in the chest.
--- NOTE | 2022-08-04 00:46 | ECG_ITS ---
[facility] Test Date: 2022-08-04 Pat Name: Apryl Duran Department: Room: Gender: Female Contemporary Or Modern Dancer: : 1995 Requested By: Tam Christianson Order Number: [id number] Vishal MD: Charles Castelan M.D. Measurements Intervals [place] Rate: 91 P: 23 MT: 117 QRS: 62 QRSD: 102 T: 37 QT: 373 QTc: 461 Interpretive Statements SINUS RHYTHM WITH SHORT MT INTERVAL NONSPECIFIC T-WAVE ABNORMALITY Compared to ECG 03/23/2020 12:56:23 Sinus tachycardia no longer present T-wave abnormality still present Electronically Signed On 08-04-2022 17:08:45 LOAN ADVISER by Charles Castelan M.D. [id number]
[2022-08-04 00:54] LABS: Glucose Point of Care > 600 mg/dL (70-110)
[2022-08-04] MEDS: sodium chloride 0.9% 1,000 ML 999 ML IV ×2 (01:02→02:04)
[2022-08-04] MEDS: insulin regular-human 100 units/1 mL 12 UNIT IVP (01:03)
[2022-08-04 01:05] LABS: Add Urine Microscopic? NO; Charge for UA Resulting for Rev
[2022-08-04 01:08] LABS: Basophils # 0.1 10^3/uL (0.0-0.1); Basophils % 0.9 %; Eosinophils # 0.5 10^3/uL (0.0-0.8); Hematocrit 44.1 % (37.0-47.0); Hemoglobin 13.9 g/dL (11.5-15.3); Lymphocytes # 2.9 10^3/uL (0.8-4.8); Lymphocytes % 31.6 %; Mean Corpuscular HGB Conc 31.5 g/dL (30.0-36.0); Mean Corpuscular Hemoglobin 32.4 pg (28.0-34.0); Mean Corpuscular Volume 102.8 fl (81-99); Mean Platelet Volume 11.3 fL (7.4-10.4); Monocytes # 0.6 10^3/uL (0.2-0.9); Monocytes % 6.3 %; Neutrophils # 5.16 10^3/uL (1.8-7.7); Nucleated Red Blood Cells % 0 %; Platelet Count 271 10^3/cmm (130-400); Red Blood Count 4.29 10^6/uL (4.1-5.3); Red Cell Distribution Width 12.5 % (12.1-15.1); White Blood Count 9.2 10^3/uL (4.0-10.0)
[2022-08-04 01:12] LABS: Urine Color Colorless (Yellow)
[2022-08-04 01:13] LABS: Bilirubin Urine Neg (Negative); Blood Urine Neg (Negative); Glucose Urine UA 4+ (Normal); Ketones Urine 1+ (Negative); Leukocyte Esterase Urine Negative (Negative); Nitrate Urine Negative (Negative); Protein Urine Neg (Negative); Specific Gravity, Urine 1.005 (1.005-1.030); Urine Appearance Clear (CLEAR); Urobilinogen Urine Neg (Negative); pH Urine 5 (5-7)
[2022-08-04 01:19] LABS: Ketone (Acetest) Serum Negative (Negative)
[2022-08-04 01:20] LABS: Amphetamines Screen Urine Negative (Negative); Barbiturates Screen Urine Negative (Negative); Benzodiazepines Screen Urine Negative (Negative); Cocaine Screen Urine Negative (Negative); Opiate Screen Urine Negative (Negative); PCP Screen Urine Negative (Negative); THC Screen Urine Negative (Negative)
[2022-08-04 01:21] LABS: HCG, Serum Qual Negative (Negative)
[2022-08-04 01:30] LABS: Alanine Aminotransferase 73 U/L (0-33); Albumin Level 4.5 g/dL (3.5-5.2); Alkaline Phosphatase 231 U/L (35-105); Anion Gap 21.6 (5-19); Aspartate Amino Transferase 48 U/L (0-32); Blood Urea Nitrogen 19 mg/dL (6-20); C Reactive Protein 3.8 mg/L (0.0-4.9); Calcium 9.1 mg/dL (8.5-10.5); Carbon Dioxide 18 mmol/L (22-29); Chloride 94 mmol/L (98-107); Globulin 3.4 g/dL (1.3-4.6); Glomerular Filtration Rate 84.8 mL/min (90-130); Osmolality Calculated 298 mOsm/kg (285-295); Potassium 3.6 mmol/L (3.5-5.1); Sodium 130 mmol/L (136-145); Total Bilirubin 0.5 mg/dL (0.15-1.2); Total Protein 7.9 g/dL (6.6-8.7)
[2022-08-04 01:36] LABS: Procalcitonin 0.07 ng/mL (0-0.5)
[2022-08-04 01:42] LABS: Glucose 554 mg/dL (65-115)
[2022-08-04 01:48] LABS: Glucose Point of Care 340 mg/dL (70-110)
[2022-08-04] MEDS: insulin regular-human 250 UNIT in sodium chloride 0.9% 250 ML 6.06 UNIT IV (02:04)
[2022-08-04 02:11] LABS: ABG PCO2 31.3 mmHg (35-45); ABG PH Result 7.32 (7.35-7.45); Arterial Blood Gas Hematocrit 34.5 % (37-47); Base Excess ABG -9.1 mmol/L (-2.0-2.0); Blood Gas Allen Test Pos; Blood Gas Sample Type Arterial; Carboxyhemoglobin 1.2 %THgb (0.4-20.1); HGB O2 Sat 97.1 % (95-100); Methemoglobin 0.2 % (0.4-1.5); Total Hemoglobin 11.3 g/dL (12-16)
[2022-08-04 02:13] LABS: Blood Gas Sample Site Radial, right; Oxygen Device ROOM AIR
[2022-08-04 02:23] VITALS: BP 105/63; PULSE 95; RESP 20; O2SAT 100
[2022-08-04 03:00] VITALS: BP 107/62; PULSE 104; RESP 22; O2SAT 100
[2022-08-04 03:08] LABS: Glucose Point of Care 94 mg/dL (70-110)
[2022-08-04] MEDS: potassium chloride oral liq 20 mEq/15 mL UDC 40 MEQ PO (03:10)
[2022-08-04 03:26] LABS: Anion Gap 18.2 (5-19); Blood Urea Nitrogen 16 mg/dL (6-20); Calcium 8.3 mg/dL (8.5-10.5); Carbon Dioxide 19 mmol/L (22-29); Chloride 107 mmol/L (98-107); Glomerular Filtration Rate 145.9 mL/min (90-130); Glucose 112 mg/dL (65-115); Osmolality Calculated 294 mOsm/kg (285-295); Potassium 3.2 mmol/L (3.5-5.1); Sodium 141 mmol/L (136-145)
[2022-08-04 03:39] LABS: Adenovirus Not Detected (NOT DETECT); Chlamydia Pneumoniae Not Detected (NOT DETECT); Coronavirus 229E,HKU1,NL63,OC4 Not Detected (NOT DETECT); Human Metapneumovirus Not Detected (NOT DETECT); Human Rhinovirus/Enterovirus Detected (NOT DETECT); Influenza A Not Detected (NOT DETECT); Influenza A H1 Not Detected (NOT DETECT); Influenza A H1-2009 Not Detected (NOT DETECT); Influenza A H3 Not Detected (NOT DETECT); Influenza B Not Detected (NOT DETECT); Mycoplasma Pneumoniae Not Detected (NOT DETECT); Parainfluenza Virus Type 1 Not Detected (NOT DETECT); Parainfluenza Virus Type 2 Not Detected (NOT DETECT); Parainfluenza Virus Type 3 Not Detected (NOT DETECT); Parainfluenza Virus Type 4 Not Detected (NOT DETECT); Respiratory Syncytial Virus A Not Detected (NOT DETECT); Respiratory Syncytial Virus B Not Detected (NOT DETECT); SARS-COV-2 Not Detected (NOT DETECT)
--- NOTE | 2022-08-04 03:59 | ED_ITS ---
HPI - SOB/Dyspnea General: Chief Complaint: Shortness of Breath/Dyspnea Stated Complaint: Cough\ZV\Sob\Fever Time Seen by Provider: 08/04/22 00:39 History of Present Illness: HPI Narrative: 27-year-old female. She has a history of type 1 diabetes. She has felt ill starting last night, and worsening over the course of the day. She is short of breath, and has been coughing. She has had some aches. She notes she has had fever at home as well. Her blood sugar read high at home. Associated symptoms: Reports fever(s), nausea, palpitations and vomiting (once); Deny abdominal pain or chest pain Review of Systems Const: Reports: fever(s), chills and body aches Eyes: Denies: change in vision ENMT: Reports: throat pain Card: Reports: palpitations; Denies: chest pain Resp: Reports: dyspnea and non-productive cough; Denies: productive cough GI: Reports: nausea and vomiting (once); Denies: abdominal pain : Denies: flank pain Neuro: Reports: headache(s) PFSH ED PFSH: Medical History (Updated 08/04/22 @ 04:41 by Tam Rizvi DO) Diabetes mellitus type 1 Blood sugars under much better control. Surgical History History of dilation and curettage History of lymph node excision Left arm Family History Mother Hypothyroidism Father Psychiatric illness Bipolar disorder Social History Smoking and tobacco status: never smoked Alcohol intake: never Household members: spouse Marital status: Female Reproductive History: Date of last menstrual period: 06/28/22 Physical Exam Const: GENERAL APPEARANCE: cooperative, in distress and ill appearing HENMT: COMMON NORMALS: normocephalic, atraumatic and Normal external nose present HEAD & SCALP: normocephalic and atraumatic FACE & SINUS: normal facial exam and face symmetric NOSE: Normal external nose present Eye: COMMON NORMALS: Equal, round and reactive pupils present and EOMs intact bilaterally PUPIL: Yes Equal, round and reactive pupils present Chest: CHEST: Yes Symmetrical chest wall rise Resp: COMMON NORMALS: clear to auscultation bilaterally EFFORT & INSPECTION: Yes tachypneic, Yes respiratory distress, Yes labored and Yes uses accessory muscles AUSCULTATION: clear to auscultation bilaterally Cardio: COMMON NORMALS: regular rhythm RATE: tachycardic RHYTHM: regular rhythm GI: COMMON NORMALS: Normal to inspection, nondistended, normoactive bowel sounds present Extremity: COMMON NORMALS: normal to inspection Neuro: WILLIAN COMA SCALE: document GCS findings [place] coma scale eye opening: Spontaneous Willian coma scale verbal response: Orientated [place] coma scale motor response: Obey commands [place] coma scale total score: 15 SPEECH: speech normal Psych: COMMON NORMALS: cooperative Skin: COMMON NORMALS: no rashes or lesions noted GENERAL SKIN EXAM: no rashes or lesions noted Course Vital Signs: Vital signs: Vital Signs Temperature 98.2 F 08/03/22 23:58 Pulse Rate 97 08/04/22 04:53 Respiratory Rate 16 08/04/22 04:53 Blood Pressure 109/69 08/04/22 04:53 Pulse Oximetry 100 08/04/22 04:53 Oxygen Delivery Me thod 08/03/22 23:58 MDM - SOB/Dyspnea Medical Decision Making 27-year-old female type I diabetic. She presents with clue small breathing, mild respiratory distress, cough and fever. Chest x-ray is negative. She is not hypoxic. She is tachycardic on arrival. Sugar read greater than 600. Although serum ketones were negative, pH was down to 7.32. She was given a bolus of insulin as well as 2 L of fluid bolus. Insulin drip was started. Sugar came down 1st to 550, then steadily decreased on the insulin drip. Oral potassium was given as the patient was not vomiting. On repeat BMP testing, her gap is closed. Her potassium is holding, as it has not taken into account her oral repletion yet. She is feeling much better. She is no longer breathing quickly. Her CRP is only 3.8. Viral swab is positive for rhinovirus. She would like to go home. I believe this is reasonable as long as she keeps a cl ose eye on her sugars, and stays hydrated today. Symptomatic treatment for the rhinovirus, Lab Data 08/04/22 01:01 08/04/22 03:02 Labs/Radiology: Radiology Impressions Chest X-Ray 08/04/22 00:45 IMPRESSION: No acute radiographic findings in the chest. Laboratory Results WBC 9.2 10^3/uL (4.0-10.0) 08/04/22 01:01 RBC 4.29 10^6/uL (4.1-5.3) 08/04/22 01:01 Hgb 13.9 g/dL (11.5-15.3) 08/04/22 01:01 Hct 44.1 % (37.0-47.0) 08/04/22 01:01 MCV 102.8 fl (81-99) H 08/04/22 01:01 MCH 32.4 pg (28.0-34.0) 08/04/22 01:01 MCHC 31.5 g/dL (30.0-36.0) 08/04/22 01:01 RDW 12.5 % (12.1-15.1) 08/04/22 01:01 Plt Count 271 10^3/cmm (130-400) 08/04/22 01:01 MPV 11.3 fL (7.4-10.4) H 08/04/22 01:01 Neut % (Auto) 56.0 % 08/04/22 01:01 Lymph % (Auto) 31.6 % 08/04/22 01:01 [place] % (Auto) 6.3 % 08/04/22 01:01 Eos % (Auto) 5.0 % 08/04/22 01:01 Baso % (Auto) 0.9 % 08/04/22 01:01 Neut # (Auto) 5.16 10^3/uL (1.8-7.7) 08/04/22 01:01 Lymph # (Auto) 2.9 10^3/uL (0.8-4.8) 08/04/22 01:01 [place] # (Auto) 0.6 10^3/uL (0.2-0.9) 08/04/22 01:01 Eos # (Auto) 0.5 10^3/uL (0.0-0.8) 08/04/22 01:01 Baso # (Auto) 0.1 10^3/uL (0.0-0.1) 08/04/22 01:01 Nucleated RBC % (auto) 0 % 08/04/22 01:01 Nucleated RBCs # 0.0 /100WBC 08/04/22 01:01 Specimen Type Arterial 08/04/22 02:00 Sample Site Radial, right 08/04/22 02:00 ABG pH 7.32 (7.35-7.45) L 08/04/22 02:00 ABG pCO2 31.3 mmHg (35-45) L 08/04/22 02:00 ABG pO2 105.0 mmHg (80.0-100.0) H 08/04/22 02:00 ABG HCO3 16.0 mmol/L (22-26) L 08/04/22 02:00 ABG Base Excess -9.1 mmol/L (-2.0-2.0) L 08/04/22 02:00 Pop Test Pos 08/04/22 02:00 Hematocrit 34.5 % (37-47) L 08/04/22 02:00 Hgb O2 Saturation 97.1 % (95-100) 08/04/22 02:00 Carboxyhemoglobin 1.2 %THgb (0.4-20.1) 08/04/22 02:00 Methemoglobin 0.2 % (0.4-1.5) L 08/04/22 02:00 Total Hemoglobin 11.3 g/dL (12-16) L 08/04/22 02:00 O2 Delivery Device Room air 08/04/22 02:00 FiO2 21.0 % 08/04/22 02:00 Search Marketing Specialist ID [email or web address] 08/04/22 02:00 Sodium 141 mmol/L (136-145) 08/04/22 03:02 Potassium 3.2 mmol/L (3.5-5.1) L 08/04/22 03:02 Chloride 107 mmol/L (98-107) 08/04/22 03:02 Carbon Dioxide 19 mmol/L (22-29) L 08/04/22 03:02 Anion Gap 18.2 (5-19) 08/04/22 03:02 BUN 16 mg/dL (6-20) 08/04/22 03:02 Creatinine 0.5 mg/dL (0.5-0.9) 08/04/22 03:02 GFR Calculation 145.9 mL/min (90-130) H 08/04/22 03:02 Glucose 112 mg/dL (65-115) 08/04/22 03:02 POC Glucose 90 mg/dL (70-110) 08/04/22 03:58 Calculated Osmolality 294 mOsm/kg (285-295) 08/04/22 03:02 Lactate 5.0 mmol/L (0.5-2.2) H* 08/04/22 01:01 Calcium 8.3 mg/dL (8.5-10.5) L 08/04/22 03:02 Total Bilirubin 0.5 mg/dL (0.15-1.2) 08/04/22 01:01 AST 48 U/L (0-32) H 08/04/22 01:01 ALT 73 U/L (0-33) H 08/04/22 01:01 Alkaline Phosphatase 231 U/L (35-105) H 08/04/22 01:01 C-Reactive Protein 3.8 mg/L (0.0-4.9) 08/04/22 01:01 Total Protein 7.9 g/dL (6.6-8.7) 08/04/22 01:01 Albumin 4.5 g/dL (3.5-5.2) 08/04/22 01:01 Globulin 3.4 g/dL (1.3-4.6) 08/04/22 01:01 Procalcitonin 0.07 ng/mL (0-0.5) 08/04/22 01:01 HCG, Qual Negative (Negative) 08/04/22 01:01 Urine Color Colorless (Yellow) 08/04/22 00:10 Urine Appearance Clear (CLEAR) 08/04/22 00:10 Urine pH 5 (5-7) 08/04/22 00:10 Ur Specific [place] 1.005 (1.005-1.030) 08/04/22 00:10 Urine Protein Neg (Negative) 08/04/22 00:10 Urine Glucose (UA) 4+ (Normal) H 08/04/22 00:10 Urine Ketones 1+ (Negative) H 08/04/22 00:10 Urine Blood Neg (Negative) 08/04/22 00:10 Urine Nitrate Negative (Negative) 08/04/22 00:10 Urine Bilirubin Neg (Negative) 08/04/22 00:10 Urine Urobilinogen Neg mg/dL (Negative) 08/04/22 00:10 Ur Leukocyte Esterase Negative (Negative) 08/04/22 00:10 Nasal Influ A H1 2009 PCR Not detected (NOT DETECT) 08/04/22 01:49 Urine Opiates Screen Negative ng/mL (Negative) 08/04/22 00:10 Ur Barbiturates Screen Negative ng/mL (Negative) 08/04/22 00:10 Ur Phencyclidine Scrn Negative ng/mL (Negative) 08/04/22 00:10 Ur Amphetamines Screen Negative ng/mL (Negative) 08/04/22 00:10 U Benzodiazepines Scrn Negative ng/mL (Negative) 08/04/22 00:10 Urine Cocaine Screen Negative ng/mL (Negative) 08/04/22 00:10 U Marijuana (THC) Screen Negative ng/mL (Negative) 08/04/22 00:10 Serum Ketones Negative (Negative) 08/04/22 01:01 Adenovirus (PCR) Not detected (NOT DETECT) 08/04/22 01:49 C. pneumoniae DNA (PCR) Not detected (NOT DETECT) 08/04/22 01:49 Coronavirus 229E (PCR) Not detected (NOT DETECT) 08/04/22 01:49 Human Metapneumovir PCR Not detected (NOT DETECT) 08/04/22 01:49 Influenza A (H1) PCR Not detected (NOT DETECT) 08/04/22 01:49 Influenza A (H3) PCR Not detected (NOT DETECT) 08/04/22 01:49 Influenza Type A (PCR) Not detected (NOT DETECT) 08/04/22 01:49 Influenza Type B (PCR) Not detected (NOT DETECT) 08/04/22 01:49 M. pneumoniae (PCR) Not detected (NOT DETECT) 08/04/22 01:49 Parainfluenza 1 (PCR) Not detected (NOT DETECT) 08/04/22 01:49 Parainfluenza 2 (PCR) Not detected (NOT DETECT) 08/04/22 01:49 Parainfluenza 3 (PCR) Not detected (NOT DETECT) 08/04/22 01:49 Parainfluenza 4 (PCR) Not detected (NOT DETECT) 08/04/22 01:49 RSV Type A (PCR) Not detected (NOT DETECT) 08/04/22 01:49 RSV Type B (PCR) Not detected (NOT DETECT) 08/04/22 01:49 Entero/Rhino (PCR) Detected (NOT DETECT) A 08/04/22 01:49 SARS-CoV-2 (PCR) Not detected (NOT DETECT) 08/04/22 01:49 Critical Care Time Critical Care Time: Critical Care Time: Yes Total Critical Care Time: 35 Attestation: This case had a high probability of a clinically significant, sudden, or life threatening deterioration of this patient's condition which required my full and direct attention, intervention and personal management. Time is independent of any procedures performed. Discharge Plan Discharge Patient Disposition: Home Clinical Impression: Acute hyperglycemia, Rhinovirus infection Condition: Stable Prescriptions: New ketorolac 10 mg tablet 10 mg PO TID PRN (Reason: pain) Qty: 10 0RF Continued ondansetron 4 mg tablet,disintegrating 4 mg PO Q8H PRN (Reason: nausea and vomiting) Qty: 15 0RF Discontinued ondansetron HCl 4 mg tablet 4 mg PO Q8H PRN (Reason: nausea and vomiting) Qty: 7 0RF No Action Novolin R Regular U-100 Insuln 100 unit/mL Solution See Rx Instructions .ROUTE .COMPLEX Rx Instructions: sliding scale at home Lantus Solostar U-100 Insulin 100 unit/mL (3 mL) insulin pen 10 unit SUBCUT DAILY Qty: 3 0RF Discharge Orders: Discharge ED (Routine); Ordered 08/04/22 Ordered By: Tam Rizvi Referrals: Yvan Bass MD [Primary Care Provider] - 1-3 days Patient Instructions: Upper Respiratory Infection (ED), Diabetic Hyperglycemia (ED) Activity Restrictions/Additional Instructions: Check your sugar often for the next 24 to 48 hours. Stay hydrated. Symptomatic treatment with prescription medications. Return for shortness of breath, inability to keep sugar down, vomiting, any other concerning symptoms. Coding Level of Care Code ED Stone Trimmer for Lillig Fwd Exam Comprehensive
[2022-08-04 04:01] LABS: Glucose Point of Care 90 mg/dL (70-110)
[2022-08-04 04:53] VITALS: BP 109/69; PULSE 97; RESP 16; O2SAT 100
== END 2022-08-04 04:50 | disposition home or self-care (01) ==
PROVIDERS: Emergency Provider Emergency Medicine; PCP Family Medicine
DX: B34.8 Other viral infections of unspecified site (principal); E10.65 Type 1 diabetes mellitus with hyperglycemia; Z79.4 Long term (current) use of insulin; Z20.822 Contact with and (suspected) exposure to COVID-19
CPT/HCPCS: 36416; 36600; 71045; 80048; 80053; 80306; 81003; 82009; 82805; 82962; 83605; 84145; 84703; 85025; 86140; 87486; 87581; 87633; 93005; 96365; 96375; 99285; J1815; J7030; J7050

== ENCOUNTER → 2022-08-13 09:38 | Outpatient (BNVA) | payer BC, MEDICAID, SELFPAY | PROVIDERS: PCP Family Medicine; Visit Provider Family Medicine | DX: E10.69 Type 1 diabetes mellitus with other specified complication (principal); E04.9 Nontoxic goiter, unspecified | CPT/HCPCS: 80053; 84439; 84443; 85025 ==

== ENCOUNTER → 2022-08-21 13:55 | Outpatient (BNVA) | payer BC, MEDICAID, SELFPAY | PROVIDERS: PCP Family Medicine; Visit Provider Family Medicine | DX: R79.89 Other specified abnormal findings of blood chemistry (principal) | CPT/HCPCS: 80053; 80074 ==

== ENCOUNTER 2023-07-12 12:26 | Emergency (ER) | payer BC, MEDICAID, SELFPAY ==
[2023-07-12 12:30] VITALS: BP 118/83; PULSE 104; RESP 17; TEMP 37; O2SAT 97; BMI 18.8
[2023-07-12 12:41] LABS: Glucose Point of Care 372 mg/dL (70-110)
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
--- NOTE | 2023-07-12 14:12 | PC.NURSE ---
pt mother in law comes to nurses station and reports she is worried about patient who has told her we are prepping her to harvest her babys organs and do a DNC . Pt mother in law also reports patient is making suicidal like statements in the room to her privately. pt had previously told triage nurse that she had miscarriage [address] Parker came out to nurses station and tells this nurse to prep the patient for a pelvic exam because pt is reporting a fullterm stillbirth at [facility] 2 days ago. notified of this nurse conversation with mother in law.
--- NOTE | 2023-07-12 14:16 | PC.NURSE ---
nurse went into room to inform patient that we would be doing a vaginal exam due to her report that she had a stillbirth two days prior. Pt family at bedside began to argue with patient and patient reported that she wants to leave. Family member left the room and patient told this nurse that she wanted to leave because there was no miscarriage . Pt reports to this nurse that she lost a baby several months ago but that this was all I had left of my who left me Pt left room at this time. notified.
== END 2023-07-12 14:38 | disposition left against medical advice (07) ==
PROVIDERS: Emergency Provider Emergency Medicine; PCP Family Medicine
DX: O90.89 Other complications of the puerperium, not elsewhere classified (principal); R10.2 Pelvic and perineal pain; O24.03 Pre-existing type 1 diabetes mellitus, in the puerperium
CPT/HCPCS: 36416; 82962; 99283

== ENCOUNTER → 2023-07-16 11:35 | Outpatient (BNVA) | payer BC, MEDICAID, SELFPAY | PROVIDERS: PCP Family Medicine; Visit Provider Family Medicine | DX: Z30.9 Encounter for contraceptive management, unspecified (principal) | CPT/HCPCS: 80053; 81025 ==

== ENCOUNTER → 2023-08-13 12:46 | Outpatient (BNVA) | payer BC, MEDICAID, SELFPAY | PROVIDERS: PCP Family Medicine; Visit Provider Nurse Practitioner | DX: R39.9 Unspecified symptoms and signs involving the genitourinary system (principal) | CPT/HCPCS: 81000 ==

== ENCOUNTER 2023-08-15 20:15 | Emergency (ER) | payer BC, MEDICAID, SELFPAY ==
[2023-08-15 20:23] VITALS: BP 112/77; PULSE 110; RESP 18; TEMP 36.8; O2SAT 100; BMI 20.3
[2023-08-15 21:38] LABS: Bilirubin Urine Neg (Negative); Blood Urine 3+ (Negative); Glucose Urine UA 4+ (Normal); Ketones Urine Negative (Negative); Leukocyte Esterase Urine Trace (Negative); Nitrate Urine Negative (Negative); Protein Urine Neg (Negative); Specific Gravity, Urine 1.015 (1.005-1.030); Urine Appearance Clear (CLEAR); Urine Color Yellow (Yellow); Urobilinogen Urine Neg (Negative); pH Urine 5 (5-7)
[2023-08-15 21:39] LABS: Add Urine Microscopic? YES
[2023-08-15 21:45] LABS: Basophils % 0.4 %; Eosinophils # 0.1 10^3/uL (0.0-0.8); Eosinophils % 1.3 %; Hematocrit 42.8 % (36-47); Lymphocytes # 2.3 10^3/uL (0.8-4.8); Lymphocytes % 41.7 %; Mean Corpuscular HGB Conc 32.9 g/dL (30-55); Mean Corpuscular Volume 87.9 fl (85-98); Mean Platelet Volume 12.9 fL (7.4-10.4); Monocytes # 0.4 10^3/uL (0.2-0.9); Monocytes % 7.3 %; Neutrophils # 2.69 10^3/uL (1.8-7.7); Neutrophils % 49.1 %; Nucleated Red Blood Cells % 0 %; Platelet Count 188 10^3/cmm (157-399); Red Blood Count 4.87 10^6/uL (3.85-5.65); Red Cell Distribution Width 12.5 % (12.1-15.1); White Blood Count 5.47 10^3/uL (3.29-11.43)
[2023-08-15 21:54] LABS: Bacteria Urine TRACE /hpf
[2023-08-15 21:55] LABS: Add Urine Culture? Yes
[2023-08-15 22:06] LABS: Alanine Aminotransferase 17 U/L (0-33); Albumin Level 4.6 g/dL (3.5-5.2); Alkaline Phosphatase 62 U/L (35-105); Anion Gap 15.3 (5-19); Aspartate Amino Transferase 17 U/L (0-32); Blood Urea Nitrogen 10 mg/dL (6-20); Calcium 9.6 mg/dL (8.5-10.5); Carbon Dioxide 24 mmol/L (22-29); Chloride 108 mmol/L (98-107); Creatinine Clr Calc Pharmacy 112.3239; Glomerular Filtration Rate 98.3 mL/min (90-130); Glucose 102 mg/dL (65-115); Lipase 22 U/L (13-60); Osmolality Calculated 297 mOsm/kg (285-295); Potassium 3.3 mmol/L (3.5-5.1); Sodium 144 mmol/L (136-145); Total Bilirubin 0.4 mg/dL (0.15-1.2); Total Protein 7.6 g/dL (6.6-8.7)
[2023-08-15 22:08] LABS: HCG, Serum Qual Negative (Negative)
[2023-08-15 22:16] VITALS: BP 93/57; PULSE 90; RESP 18; O2SAT 99
--- NOTE | 2023-08-15 23:03 | PC.NURSE ---
Into room to give patient pain medications and fluids. Pt refused all iv medications/ fluids. States, look, I just want to leave. My back is killing me and you guys are doing nothing for the pain. I have acetaminophen at home. Informed pt again of the medication that was ordered for her pain. Pt refused and states that she will then have to stay here for 6 hours if that is given to her. Offered to ask provider for another medication for her pain control. Pt again refused. States I just want to leave right now. She states that she has a script for Levaquin at home for her kidney infection. Dr Rizvi notified of situation. Went back into the room and pt was pulling own Iv out of her arm. Cassius and jackelin applied to site for pt. ama form signed.
[2023-08-15 23:08] VITALS: PULSE 96; RESP 16; O2SAT 98
--- NOTE | 2023-08-16 00:27 | W.ED.FEMALGU ---
HPI - Female Genitourinary General: Chief complaint: Urogenital-Female Stated complaint: had kidney stone, peeing blood Time Seen by Provider: 08/15/23 21:20 History of Present Illness: 28-year-old female who was diagnosed with a kidney stone on outside facility ER after CT 2 days ago. She passed the stone, she carries it with her today to demonstrate that she passed it. She continues, though, to have right-sided flank pain. She had blood in her urine earlier today. She has had a couple of episodes of vomiting. She feels like she has a fever, she is chilling. Her blood sugar was high earlier, but it is controlled now with her insulin pump. Associated symptoms: Reports abdominal pain and nausea; Deny headache(s) Date of Last Menstrual Period: 08/14/23 Review of Systems Const: Reports: fever(s), chills and body aches Eyes: Denies: change in vision Card: Denies: chest pain or palpitations Resp: Denies: dyspnea, productive cough, non-productive cough or wheezing GI: Reports: abdominal pain, nausea and vomiting; Denies: diarrhea or hematochezia : Reports: dysuria, urinary frequency and hematuria Skin/Breast: Denies: rash Neuro: Reports: dizziness; Denies: headache(s), weakness in extremities or confusion PFSH ED PFSH: Medical History Thyroid goiter Hx of back injury burst fracture on L1 and L2, was scheduled for surgery, but did not have Diabetes mellitus type 1 Blood sugars under much better control. Surgical History History of dilation and curettage History of lymph node excision Left arm Family History Mother Hypothyroidism Hypertension Other CAD (coronary artery disease) Denies family history of Ovarian cancer Diabetes Heart disease Hypercholesteremia Breast cancer Uterine cancer Stroke Social History (Updated 07/16/23 @ 10:56 by Cierra Novak LPN) Smoking and tobacco/nicotine status: current some day tobacco/nicotine user cigarettes [ Other cigarette details: 1 pack / 3 months] Alcohol intake: never Substance/Drug Use: never Lives independently: Yes Current occupational status: employed 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 Special ashlyn needs: No Agree to transfusion: Yes Female Reproductive History: Date of last menstrual period: 08/14/23 Para: 0 Physical Exam Const: GENERAL APPEARANCE: cooperative and ill appearing (mildly); not frail appearing HENMT: COMMON NORMALS: normocephalic, atraumatic and Normal external nose present HEAD & SCALP: normocephalic and atraumatic FACE & SINUS: normal facial exam and face symmetric NOSE: Normal external nose present Eye: COMMON NORMALS: Equal, round and reactive pupils present and EOMs intact bilaterally PUPIL: Yes Equal, round and reactive pupils present Neck/C-Spine: GENERAL: Yes trachea midline Chest: CHEST: Yes Symmetrical chest wall rise Resp: COMMON NORMALS: normal respiratory effort, No retractions, No use of accessory muscles and clear to auscultation bilaterally AUSCULTATION: clear to auscultation bilaterally Cardio: COMMON NORMALS: regular rate and regular rhythm RATE: regular rate RHYTHM: regular rhythm GI: COMMON NORMALS: Normal to inspection, nondistended, normoactive bowel sounds present PALPATION: Yes Tenderness to palpation present (GI) Details: RLQ : BLADDER/KIDNEY EXAM: Yes CVA tenderness Back/Pelvis: GENERAL BACK: Yes CVA tenderness CVA tenderness: right Extremity: COMMON NORMALS: no pedal edema Neuro: WILLIAN COMA SCALE: document GCS findings [place] coma scale eye opening: Spontaneous Willian coma scale verbal response: Orientated Willian coma scale motor response: Obey commands Willian coma scale total score: 15 SENSORY EXAM: Yes extremities (intact) Psych: COMMON NORMALS: speech normal SPEECH: Yes normal speech Skin: COMMON NORMALS: no rashes or lesions noted GENERAL SKIN EXAM: no rashes or lesions noted Course Vital Signs: Vital signs: Vital Signs Temperature 98.2 F 08/15/23 20:23 Pulse Rate 96 08/15/23 23:08 Respiratory Rate 16 08/15/23 23:08 Blood Pressure 93/57 08/15/23 22:16 Pulse Oximetry 98 08/15/23 23:08 Oxygen Delivery Me thod Room Air 08/15/23 20:23 [facility] - Female Medical Decision Making Patient is having right-sided flank pain, with vomiting. She has chills as well. Her CRP is 3. Her white blood cell count is 5.5. Hemoglobin is 14. Urinalysis shows red blood cells and white blood cells, with only trace leukocyte Estrace. She has a history of a kidney stone. IV fluids, pain medication and antiemetic were ordered. The patient refused them. She began to take out her own IV. Nursing urged her to stay, as we are going to reimage her and treat her, including potential infection/UTI. She elected to sign an AMA form. She knows the risks including worsening pain, worsening infection, and . She is urged to return at any point should she worsen. She states that she has a prescription for Levaquin at home. Lab Data 08/15/23 21:25 08/15/23: Laboratory Results WBC 5.47 10^3/uL (3.29-11.43) 08/15/23: RBC 4.87 10^6/uL (3.85-5.65) 08/15/23: Hgb 14.10 g/dL (11.27-16.99) 08/15/23: Hct 42.8 % (36-47) 08/15/23: MCV 87.9 fl (85-98) 08/15/23 21: MCH 29.0 pg (27-33) 08/15/23 21: MCHC 32.9 g/dL (30-55) 08/15/23: RDW 12.5 % (12.1-15.1) 08/15/23: Plt Count 188 10^3/cmm (157-399) 08/15/23: MPV 12.9 fL (7.4-10.4) H 08/15/23: Neut % (Auto) 49.1 % 08/15/23: Lymph % (Auto) 41.7 % 08/15/23: [place] % (Auto) 7.3 % 08/15/23: Eos % (Auto) 1.3 % 08/15/23: Baso % (Auto) 0.4 % 08/15/23: Neut # (Auto) 2.69 10^3/uL (1.8-7.7) 08/15/23: Lymph # (Auto) 2.3 10^3/uL (0.8-4.8) 08/15/23 21:25 [place] # (Auto) 0.4 10^3/uL (0.2-0.9) 08/15/23 21:25 Eos # (Auto) 0.1 10^3/uL (0.0-0.8) 08/15/23 21:25 Baso # (Auto) 0.0 10^3/uL (0.0-0.1) 08/15/23 21:25 Nucleated RBC % (auto) 0 % 08/15/23 21:25 Nucleated RBCs # 0.0 /100WBC 08/15/23 21:25 Sodium 144 mmol/L (136-145) 08/15/23 21:25 Potassium 3.3 mmol/L (3.5-5.1) L 08/15/23 21:25 Chloride 108 mmol/L (98-107) H 08/15/23 21:25 Carbon Dioxide 24 mmol/L (22-29) 08/15/23 21:25 Anion Gap 15.3 (5-19) 08/15/23 21:25 BUN 10 mg/dL (6-20) 08/15/23 21:25 Creatinine 0.7 mg/dL (0.5-0.9) 08/15/23 21:25 GFR Calculation 98.3 mL/min (90-130) 08/15/23 21:25 Glucose 102 mg/dL (65-115) 08/15/23 21:25 Calculated Osmolality 297 mOsm/kg (285-295) H 08/15/23 21:25 Calcium 9.6 mg/dL (8.5-10.5) 08/15/23 21:25 Total Bilirubin 0.4 mg/dL (0.15-1.2) 08/15/23 21:25 AST 17 U/L (0-32) 08/15/23 21:25 ALT 17 U/L (0-33) 08/15/23 21:25 Alkaline Phosphatase 62 U/L (35-105) 08/15/23 21:25 C-Reactive Protein 3.0 mg/L (0.0-4.9) 08/15/23 21:25 Total Protein 7.6 g/dL (6.6-8.7) 08/15/23 21:25 Albumin 4.6 g/dL (3.5-5.2) 08/15/23 21:25 Globulin 3.0 g/dL (1.3-4.6) 08/15/23 21:25 Lipase 22 U/L (13-60) 08/15/23 21:25 HCG, Qual Negative (Negative) 08/15/23 21:25 Urine Color Yellow (Yellow) 08/15/23 21:21 Urine Appearance Clear (CLEAR) 08/15/23 21:21 Urine pH 5 (5-7) 08/15/23 21:21 Ur Specific [place] 1.015 (1.005-1.030) 08/15/23 21:21 Urine Protein Neg (Negative) 08/15/23 21:21 Urine Glucose (UA) 4+ (Normal) H 08/15/23 21: Urine Ketones Negative (Negative) 08/15/23 21: Urine Blood 3+ (Negative) H 08/15/23 21:21 Urine Nitrate Negative (Negative) 08/15/23 21:21 Urine Bilirubin Neg (Negative) 08/15/23 21:21 Urine Urobilinogen Neg mg/dL (Negative) 08/15/23 21:21 Ur Leukocyte Esterase Trace (Negative) H 08/15/23 21:21 Urine RBC 10-15 /hpf (0-2) H 08/15/23 21:21 Urine WBC 10-15 /hpf (0-5) H 08/15/23 21:21 Ur Squamous Epith Cells 5-10 /hpf (0-5) H 08/15/23 21:21 Amorphous Sediment Not Reportable 08/15/23 21: Urine Bacteria Trace /hpf (NONE) 08/15/23 21:21 No radiology studies performed this visit Discharge Plan Discharge Patient Disposition: Left Against Medical Advice Clinical Impression: Hematuria, UTI (urinary tract infection) Prescriptions: No Action (DME) insulin pump-infus. set-meter Kit See Rx Instructions .Route Rx Instructions: basal rate of 2units/hour, 1.7units/ 10 carbs medroxyprogesterone [Depo-Provera] 150 mg/mL syringe 150 mg IM ONCE Qty: 1 4RF tamsulosin 0.4 mg capsule 0.4 mg PO DAILY 14 Days Qty: 14 0RF levofloxacin 750 mg tablet 750 mg PO DAILY 5 Days Qty: 5 0RF ondansetron 8 mg tablet,disintegrating 8 mg PO Q8H PRN (Reason: nausea and vomiting) Qty: 10 0RF Novolog U-100 Insulin aspart 100 unit/mL solution See Rx Instructions .ROUTE .COMPLEX Rx Instructions: INJECT UP TO 50 UNITS PER PUMP DAILY (DME) Dexcom G7 Sensor Device MISCELLANEOUS Lantus Solostar U-100 Insulin 100 unit/mL (3 mL) insulin pen 15 unit SUBCUT BEDTIME PRN (Reason: when not using dexcom g7) Referrals: Yvan Bass MD [Primary Care Provider] - 1-3 days Coding Level of Care Code ED 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
== END 2023-08-15 23:09 | disposition left against medical advice (07) ==
PROVIDERS: Nurse Practitioner Family; Emergency Provider Emergency Medicine; PCP Family Medicine
DX: N39.0 Urinary tract infection, site not specified (principal); R31.9 Hematuria, unspecified; Z53.29 Procedure and treatment not carried out because of patient's decision for other reasons; Z79.4 Long term (current) use of insulin; E10.9 Type 1 diabetes mellitus without complications; F17.210 Nicotine dependence, cigarettes, uncomplicated
CPT/HCPCS: 80053; 81001; 83690; 84703; 85025; 86140; 87086; 99283

== ENCOUNTER → 2024-04-07 10:12 | Outpatient (BNVA) | payer OTHER, SELFPAY | PROVIDERS: PCP Family Medicine; Visit Provider Nurse Practitioner Family | DX: R39.9 Unspecified symptoms and signs involving the genitourinary system (principal); R30.0 Dysuria | CPT/HCPCS: 81000; 87086 ==

== ENCOUNTER → 2024-04-08 11:56 | Outpatient (BNVA) | payer OTHER, SELFPAY | PROVIDERS: PCP Family Medicine; Visit Provider Family Medicine | DX: Z30.9 Encounter for contraceptive management, unspecified (principal) | CPT/HCPCS: 81025 ==

== ENCOUNTER 2024-04-28 13:56 | Emergency (ER) | payer MEDICAID, SELFPAY ==
[2024-04-28 14:06] VITALS: BP 108/52; PULSE 108; RESP 20; TEMP 36.1; O2SAT 98; BMI 17.5
--- NOTE | 2024-04-28 14:08 | ED_ITS ---
HPI - General Adult 2 General: Chief complaint: General Medical Stated complaint: insulin port occluded Time Seen by Provider: 04/28/24 14:08 History of Present Illness: 28-year-old female comes in today for co mplaints of possible DKA. Patient reports 1 episode of emesis. Patient states that she noticed that her insulin port on her pump had become occluded this morning. She changed out the port and restarted the pump but she feels ill and has vomited 1 time. Patient believes that she may be going into DKA. Related Data Home Medications Medication Instructions Recorded Confirmed insulin glargine 100 unit/mL (3 15 unit SUBCUT BEDTIME PRN when 07/12/23 04/28/24 mL) subcutaneous pen (Lantus not using dexcom g7 Solostar U-100 Insulin) insulin pump-infusion set-blood 07/16/23 04/28/24 glucose meter kit Previous Rx's Medication Instructions Recorded medroxyprogesterone 150 mg/mL 150 mg IM ONCE #1 mL 04/07/24 intramuscular syringe (Depo-Provera) Insulin pump 530g Forever His Transporttronic #1 ea 04/18/24 blood-glucose sensor (Dexcom G7 #1 ea 04/18/24 Sensor device) insulin aspart U-100 100 unit/mL See Rx Instructions .Route 04/18/24 subcutaneous solution (Novolog .COMPLEX #20 mL U-100 Insulin aspart) Allergies Allergy/AdvReac Type Severity Reaction Status Date / Time Sulfa (Sulfonamide Allergy Intermediate rash Verified 04/07/24 10:13 Antibiotics) sulfamethoxazole Allergy ADR-Itching Verified 04/07/24 10:13 [From Bactrim] trimethoprim [From Bactrim] Allergy ADR-Itching Verified 04/07/24 10:13 sertraline [From Zoloft] AdvReac Severe Manic Verified 04/07/24 10:13 episode, insomnia, nightmares Review of Systems 2 General: Reports: 10 or more systems reviewed and unremarkable except in HPI and below PFSH ED 2 PFSH: Medical History Thyroid goiter Hx of back injury burst fracture on L1 and L2, was scheduled for surgery, but did not have Diabetes mellitus type 1 Blood sugars under much better control. 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 Special ashlyn needs: No Agree to transfusion: Yes Female Reproductive History: Para: 0 Physical Exam 2 Const: COMMON NORMALS: alert HENMT: COMMON NORMALS: normocephalic HEAD & SCALP: normocephalic Neck/C-Spine: COMMON NORMALS: full ROM Chest: COMMONS NORMALS: normal inspection of the chest Resp: COMMON NORMALS: normal respiratory effort GI: COMMON NORMALS: Soft to palpation and non-tender PALPATION: Yes Soft to palpation Back/Pelvis: COMMON NORMALS: thoracic and lumbar spine normal to inspection Extremity: COMMON NORMALS: no pedal edema Neuro: SENSORIUM/ORIENTATION: Yes alert Skin: COMMON NORMALS: turgor normal GENERAL SKIN EXAM: turgor normal Course 2 Vital Signs: Vital signs: Vital Signs Temperature 97.0 F L 04/28/24 14:06 Pulse Rate 85 04/28/24 16:00 Respiratory Rate 20 H 04/28/24 14:06 Blood Pressure 92/62 04/28/24 16:00 Pulse Oximetry 100 04/28/24 16:00 Oxygen Delivery Me thod Room Air 04/28/24 16:00 MDM - General Adult Medical Decision Making 28-year-old female comes in today for complaints of possible DKA. Patient reports an episode of emesis. Patient had a insulin port become occluded on her pump she changed out but then started feeling ill afterwards. Patient appears unwell but not toxic. Respirations are even. Skin is warm and dry. Vital signs notes some elevation in pulse at 108. Patient reported no prior illness until change of report. Differential diagnosis DKA, hyperglycemia, gastroenteritis, dehydration. Patient serum ketones was negative. Patient's blood was slightly concentrated with RBCs at 6.2, hemoglobin 18.5, hematocrit 54.5. BMP had a blood glucose of 150, sodium was 134 initial anion gap was 29. Reviewed this with Dr. Swan who agreed with plan for rehydration and recheck labs. 2 L of lactated Ringer's was given anion gap closed 21. Patient was able to tolerate oral fluids and stated improvement of symptoms. Patient was discharged home with monitoring and recommended to return to ER for worsening symptoms such as increased nausea vomiting or uncontrolled blood glucose. Patient stated understanding and agreed to plan. Lab Data 04/28/24 14:28 04/28/24 16:17 Laboratory Results WBC 7.60 10^3/uL (3.29-11.43) 04/28/24 14: RBC 6.21 10^6/uL (3.85-5.65) H 04/28/24 14: Hgb 18.50 g/dL (11.27-16.99) H 04/28/24 14: Hct 54.5 % (36-47) H 04/28/24 14: MCV 87.8 fl (85-98) 04/28/24 14: MCH 29.8 pg (27-33) 04/28/24 14: MCHC 33.9 g/dL (30-55) 04/28/24 14: RDW 12.4 % (12.1-15.1) 04/28/24 14: Plt Count 249 10^3/cmm (157-399) 04/28/24 14: MPV 12.3 fL (7.4-10.4) H 04/28/24 14: Neut % (Auto) 58.2 % 04/28/24 14:28 Lymph % (Auto) 35.5 % 04/28/24 14:28 [place] % (Auto) 3.2 % 04/28/24 14: Eos % (Auto) 2.2 % 04/28/24 14: Baso % (Auto) 0.8 % 04/28/24 14: Neut # (Auto) 4.42 10^3/uL (1.8-7.7) 04/28/24 14: Lymph # (Auto) 2.7 10^3/uL (0.8-4.8) 04/28/24 14:28 [place] # (Auto) 0.2 10^3/uL (0.2-0.9) 04/28/24 14:28 Eos # (Auto) 0.2 10^3/uL (0.0-0.8) 04/28/24 14:28 Baso # (Auto) 0.1 10^3/uL (0.0-0.1) 04/28/24 14:28 Nucleated RBC % (auto) 0 % 04/28/24 14: Nucleated RBCs # 0.0 /100WBC 04/28/24 14:28 Specimen Type Arterial 04/28/24 14:24 Sample Site Radial, right 04/28/24 14:24 ABG pH 7.32 (7.35-7.45) L 04/28/24 14: ABG pCO2 30.1 mmHg (35-45) L 04/28/24 14:24 ABG pO2 91.6 mmHg (80.0-100.0) 04/28/24 14:24 ABG PO2/FiO2 Ratio 436 04/28/24 14:24 ABG HCO3 15.4 mmol/L (22-26) L 04/28/24 14:24 ABG Base Excess -9.3 mmol/L (-2.0-2.0) L 04/28/24 14:24 Pop Test Pos 04/28/24 14:24 Hematocrit 47.6 % (37-47) H 04/28/24 14:24 O2 Delivery Device Room air 04/28/24 14:24 FiO2 21.0 % 04/28/24 14:24 Reimbursement Specialist ID [place] 04/28/24 14:24 Sodium 134 mmol/L (136-145) L 04/28/24 16:17 Potassium 3.6 mmol/L (3.5-5.1) 04/28/24 16:17 Chloride 104 mmol/L (98-107) 04/28/24 16:17 Carbon Dioxide 12 mmol/L (22-29) L 04/28/24 16:17 Anion Gap 21.6 (5-19) H 04/28/24 16:17 BUN 14 mg/dL (6-20) 04/28/24 16:17 Creatinine 0.7 mg/dL (0.5-0.9) 04/28/24 16:17 GFR Calculation 98.3 mL/min (90-130) 04/28/24 16:17 Glucose 86 mg/dL (65-115) 04/28/24 16:17 POC Glucose 245 mg/dL (70-110) H 04/28/24 14:06 Calculated Osmolality 278 mOsm/kg (285-295) L 04/28/24 16:17 Calcium 8.9 mg/dL (8.5-10.5) 04/28/24 16:17 Magnesium 2.2 mg/dL (1.7-2.3) 04/28/24 14:28 Total Bilirubin 0.6 mg/dL (0.15-1.2) 04/28/24 14:28 AST 16 U/L (0-32) 04/28/24 14:28 ALT 19 U/L (0-33) 04/28/24 14:28 Alkaline Phosphatase 101 U/L (35-105) 04/28/24 14:28 Total Protein 9.2 g/dL (6.6-8.7) H 04/28/24 14:28 Albumin 5.6 g/dL (3.5-5.2) H 04/28/24 14:28 Globulin 3.6 g/dL (1.3-4.6) 04/28/24 14:28 Serum Ketones Negative (Negative) 04/28/24 14:28 No radiology studies performed this visit Discharge Plan Discharge Patient Disposition: Home Clinical Impression: Acute dehydration, Hyperglycemia due to type 1 diabetes mellitus Condition: Stable Prescriptions: No Action (DME) insulin pump-infus. set-meter Kit See Rx Instructions .Route Rx Instructions: basal rate of 2units/hour, 1.7units/ 10 carbs medroxyprogesterone [Depo-Provera] 150 mg/mL syringe 150 mg IM ONCE Qty: 1 4RF (DME) Dexcom G7 Sensor Device MISCELLANEOUS Qty: 1 3RF Rx Instructions: As directed Novolog U-100 Insulin aspart 100 unit/mL solution See Rx Instructions .ROUTE .COMPLEX Qty: 20 2RF Rx Instructions: INJECT UP TO 50 UNITS PER PUMP DAILY (DME) Insulin pump 530g Forever His Transporttronic See Rx Instructions .Route .MEDSUPPLY Qty: 1 0RF Rx Instructions: As directed insulin glargine [Lantus Solostar U-100 Insulin] 100 unit/mL (3 mL) insulin pen 15 unit SUBCUT BEDTIME PRN (Reason: when not using dexcom g7) Discharge Orders: Discharge ED (Routine); Ordered 04/28/24 Ordered By: Stanley Sanchez Referrals: Yvan Bass MD [Primary Care Provider] - Discharge Diet: Usual diet Discharge Activity: Increase activity as tolerated Patient Instructions: Diabetic Hyperglycemia (ED) Activity Restrictions/Additional Instructions: Continue with routine care. Follow-up with primary care as needed. Return to ED for worsening symptoms such as persistent vomiting, or uncontrolled blood sugar. Coding Level of Care Code ED Transitions Manager Rn for Jose Noriega
[2024-04-28 14:09] LABS: Glucose Point of Care 245 mg/dL (70-110)
[2024-04-28] MEDS: ondansetron 2 mg/ML SDV 2 mL 4 MG IVP (14:28)
[2024-04-28] MEDS: lactated ringers 1,000 ML 999 ML IV ×2 (14:33→15:26)
[2024-04-28 14:35] LABS: ABG PCO2 30.1 mmHg (35-45); ABG PH Result 7.32 (7.35-7.45); Arterial Blood Gas Hematocrit 47.6 % (37-47); Base Excess ABG -9.3 mmol/L (-2.0-2.0); Blood Gas Allen Test Pos; Blood Gas Operator Identificat WALCI; Blood Gas Sample Site Radial, right; Blood Gas Sample Type Arterial; HCO3 ABG 15.4 mmol/L (22-26); Oxygen Device ROOM AIR; PO2 ABG 91.6 mmHg (80.0-100.0); PO2 FiO2 Ratio Arterial Blood 436
[2024-04-28 14:40] LABS: Basophils # 0.1 10^3/uL (0.0-0.1); Basophils % 0.8 %; Eosinophils # 0.2 10^3/uL (0.0-0.8); Eosinophils % 2.2 %; Hematocrit 54.5 % (36-47); Lymphocytes # 2.7 10^3/uL (0.8-4.8); Lymphocytes % 35.5 %; Mean Corpuscular HGB Conc 33.9 g/dL (30-55); Mean Corpuscular Hemoglobin 29.8 pg (27-33); Mean Corpuscular Volume 87.8 fl (85-98); Mean Platelet Volume 12.3 fL (7.4-10.4); Monocytes # 0.2 10^3/uL (0.2-0.9); Monocytes % 3.2 %; Neutrophils # 4.42 10^3/uL (1.8-7.7); Neutrophils % 58.2 %; Nucleated Red Blood Cells % 0 %; Platelet Count 249 10^3/cmm (157-399); Red Blood Count 6.21 10^6/uL (3.85-5.65); Red Cell Distribution Width 12.4 % (12.1-15.1)
[2024-04-28 14:48] LABS: Ketone (Acetest) Serum Negative (Negative)
[2024-04-28 14:58] LABS: Alanine Aminotransferase 19 U/L (0-33); Albumin Level 5.6 g/dL (3.5-5.2); Alkaline Phosphatase 101 U/L (35-105); Aspartate Amino Transferase 16 U/L (0-32); Blood Urea Nitrogen 15 mg/dL (6-20); Calcium 10.3 mg/dL (8.5-10.5); Carbon Dioxide 14 mmol/L (22-29); Chloride 98 mmol/L (98-107); Creatinine Clr Calc Pharmacy 73.3023; Globulin 3.6 g/dL (1.3-4.6); Glomerular Filtration Rate 73.5 mL/min (90-130); Glucose 159 mg/dL (65-115); Magnesium 2.2 mg/dL (1.7-2.3); Osmolality Calculated 290 mOsm/kg (285-295); Sodium 138 mmol/L (136-145); Total Bilirubin 0.6 mg/dL (0.15-1.2); Total Protein 9.2 g/dL (6.6-8.7)
[2024-04-28 15:04] LABS: Anion Gap 29.6 (5-19); Potassium 3.6 mmol/L (3.5-5.1)
[2024-04-28 16:00] VITALS: BP 92/62; PULSE 85; O2SAT 100
[2024-04-28 17:00] LABS: Blood Urea Nitrogen 14 mg/dL (6-20); Calcium 8.9 mg/dL (8.5-10.5); Carbon Dioxide 12 mmol/L (22-29); Chloride 104 mmol/L (98-107); Creatinine Clr Calc Pharmacy 94.2458; Glomerular Filtration Rate 98.3 mL/min (90-130); Glucose 86 mg/dL (65-115); Osmolality Calculated 278 mOsm/kg (285-295); Sodium 134 mmol/L (136-145)
[2024-04-28 17:04] LABS: Anion Gap 21.6 (5-19); Potassium 3.6 mmol/L (3.5-5.1)
[2024-04-28 17:49] VITALS: BP 114/68; PULSE 89; O2SAT 100
== END 2024-04-28 17:51 | disposition home or self-care (01) ==
PROVIDERS: Emergency Provider Nurse Practitioner Family; PCP Family Medicine
DX: E86.0 Dehydration (principal); E10.65 Type 1 diabetes mellitus with hyperglycemia; Z79.4 Long term (current) use of insulin; Z96.41 Presence of insulin pump (external) (internal)
CPT/HCPCS: 36415; 36416; 36600; 80048; 80053; 82009; 82803; 82962; 83735; 85025; 96361; 96374; 99284; J2405; J7120

== ENCOUNTER → 2024-05-03 12:02 | Outpatient (BNVA) | payer OTHER, SELFPAY | PROVIDERS: PCP Family Medicine; Visit Provider Family Medicine | DX: N20.0 Calculus of kidney (principal) | CPT/HCPCS: 82365 ==

== ENCOUNTER → 2024-05-30 12:04 | Outpatient (BNVA) | payer OTHER, MEDICAID, SELFPAY | PROVIDERS: PCP Family Medicine; Visit Provider Registered Nurse Neonatal Intensive Care | DX: R39.9 Unspecified symptoms and signs involving the genitourinary system (principal) | CPT/HCPCS: 81000 ==

== ENCOUNTER → 2024-06-16 10:10 | Outpatient (BNVA) | payer MEDICAID, SELFPAY | PROVIDERS: PCP Family Medicine; Visit Provider Internal Medicine | DX: E10.69 Type 1 diabetes mellitus with other specified complication (principal) | CPT/HCPCS: 36415; 80053; 80061; 82044; 82306; 82310; 83036; 83970 ==

== ENCOUNTER → 2024-09-16 13:59 | Outpatient (BNVA) | payer MEDICAID, SELFPAY | PROVIDERS: PCP Family Medicine; Visit Provider Family Medicine | DX: R30.0 Dysuria (principal) | CPT/HCPCS: 81000 ==

== ENCOUNTER → 2024-09-21 16:15 | Outpatient (BNVA) | payer MEDICAID, SELFPAY | PROVIDERS: PCP Family Medicine | DX: Z30.9 Encounter for contraceptive management, unspecified (principal) | CPT/HCPCS: 81025 ==

== ENCOUNTER 2024-09-29 12:09 | Outpatient (CLI) | payer MEDICAID, SELFPAY ==
--- NOTE | 2024-09-29 12:15 | US_ITS ---
WS: [id number] THYROID ULTRASOUND HISTORY: thyroid goiter COMPARISON: None available. Right lobe: 1.8 cm x 1.6 cm x 3.8 cm (w x ap x l). Volume: 5.4 cm3. Normal size and echotexture. No significant are dominant nodules are present. Left lobe: 1.8 cm x 1.1 cm x 4.4 cm (w x ap x l). Volume: 4.2 cm3. Normal size and echotexture. No significant or dominant nodules are present. Isthmus: 0.2 cm. Normal cervical chain lymph nodes. US/US thyroid 45529 IMPRESSION: Normal thyroid ultrasound.
== END 2024-09-29 12:10 | disposition home or self-care (01) ==
LOC: RAD 12:09
PROVIDERS: PCP Family Medicine; Visit Provider Internal Medicine
DX: E04.9 Nontoxic goiter, unspecified (principal)
CPT/HCPCS: 76536

== ENCOUNTER 2024-12-29 06:52 | Emergency (ER) | payer MEDICAID, SELFPAY ==
--- NOTE | 2024-12-29 06:58 | XR_ITS ---
WS: [id number] Portable AP upright chest, 12/29/2024 Clinical Data: dyspnea/cough Comparison: Portable chest, 08/04/2022 Findings: No nodules, masses or effusions are seen. The heart is normal. The pulmonary vascularity is not increased. No pneumonia or pneumothorax is seen. Monitor leads are on the chest wall. XR/XR chest 1V portable [id number] Impression: Negative chest.
[2024-12-29 07:05] VITALS: BP 106/82; PULSE 103; RESP 18; TEMP 36.6; O2SAT 100; BMI 18.8
--- NOTE | 2024-12-29 07:09 | ED_ITS ---
HPI - General Adult 2 General: Chief complaint: Nausea/Vomiting/Diarrhea Stated complaint: vomitting high blood sugars Time Seen by Provider: 12/29/24 06:55 History of Present Illness: 29-year-old female presents emergency ro om complaining of elevated blood sugars with some vomiting. She has an insulin pump on that she states has been working well. Blood sugar this morning was over 400. Describes some generalized aches and 1 feels like fever. She is very concerned that she may be in DKA. She denies any hematemesis or coffee-ground emesis. Associated symptoms: Reports nausea and vomiting; Deny chest pain, dyspnea or rash Related Data Home Medications ?Medication ?Instructions ?Recorded ?Confirmed [id number]-[id number]-acetaminophen 30 ml PO Q6H PRN cold o r flu 12/29/24 12/29/24 6.25 mg-30 [id number]/15mL oral liqd Previous Rx's ?Medication ?Instructions ?Recorded medroxyprogesterone 150 mg/mL 150 mg IM ONCE #1 mL intramuscular syringe (Depo-Provera) blood-glucose meter,continuous #1 ea 05/03/24 (Dexcom G7 High Density Press Operator) blood-glucose sensor (Dexcom G7 #2 ea 06/16/24 Sensor device) cholecalciferol (vitamin D3) 50 2,000 unit PO DAILY #3 0 caps 07/06/24 mcg (2,000 unit) capsule ibuprofen 800 mg tablet 800 mg PO TID PRN pain #45 t abs 07/08/24 potassium citrate 10 mEq (1,080 10 meq PO BID #180 tab s 09/16/24 mg) tablet,extended release propranolol 10 mg tablet 10 mg PO BID #180 tabs 09/16 subcutaneous insulin pump (MiniMed #1 ea 09/16/24 780G Insulin Pump) insulin lispro 100 unit/mL See Rx Instructions .Route 12/15/24 subcutaneous solution .COMPLEX #20 mL cefdinir 300 mg capsule 300 mg PO BID #14 caps 12/29 Allergies Allergy/AdvReac Type Severity Reaction Status Date / Time Sulfa (Sulfonamide Allergy Intermediate rash Verified 12/29/24 07:18 Antibiotics) sulfamethoxazole (From Allergy ADR-Itching Verified 12/29/24 07:18 Bactrim) trimethoprim (From Bactrim) Allergy ADR-Itching Verified 12/29/24 07:18 sertraline (From Zoloft) AdvReac Severe Manic Verified 12/29/24 07:18 episode, insomnia, nightmares Review of Systems 2 Const: Denies: fever(s) or chills Card: Denies: chest pain Resp: Denies: dyspnea GI: Reports: nausea and vomiting; Denies: abdominal pain : Denies: dysuria, urinary frequency or urinary urgency Musc: Denies: neck pain or back pain Skin/Breast: Denies: rash PFSH ED 2 PFSH: Medical History Psychiatric care Thyroid goiter Hx of back injury burst fracture on L1 and L2, was scheduled for surgery, but did not have Diabetes mellitus type 1 Blood sugars under much better control. 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 Special ashlyn needs: No Agree to transfusion: Yes Female Reproductive History: Para: 0 Physical Exam 2 Const: GENERAL APPEARANCE: cooperative ORIENTATION/CONSCIOUSNESS: Yes awake, Yes oriented to person, Yes oriented to place and Yes oriented to time HENMT: COMMON NORMALS: normocephalic, atraumatic and hearing grossly normal bilaterally HEAD & SCALP: normocephalic and atraumatic Resp: COMMON NORMALS: normal respiratory effort, No retractions, No use of accessory muscles and clear to auscultation bilaterally AUSCULTATION: clear to auscultation bilaterally Cardio: COMMON NORMALS: regular rate, regular rhythm and No murmurs present (Cardio) RATE: regular rate RHYTHM: regular rhythm GI: COMMON NORMALS: Soft to palpation and No hepatosplenomegaly present A USCULTATION: Yes normoactive bowel sounds PALPATION: Yes Soft to palpation, No Tenderness to palpation present (GI), No Guarding due to palpation present (GI) and Yes No hepatosplenomegaly present Extremity: COMMON NORMALS: normal to inspection, capillary refill normal, no clubbing, cyanosis or edema, no calf tenderness and no pedal edema Neuro: SENSORIUM/ORIENTATION: Yes oriented to person, Yes oriented to place and Yes oriented to time Skin: COMMON NORMALS: no rashes or lesions noted GENERAL SKIN EXAM: no rashes or lesions noted Course 2 Vital Signs: Vital signs: Vital Signs Temperature 97.8 F 12/29/24 07:05 Pulse Rate 84 12/29/24 09:48 Respiratory Rate 23 H 12/29/24 09:48 Blood Pressure 101/72 12/29/24 09:48 Pulse Oximetry 93 12/29/24 09:48 Oxygen Delivery Me thod Room Air 12/29/24 09:48 MDM - General Adult Medical Decision Making Ketones negative normal anion gap. Patient is somewhat improved after IV fluids antinausea medicines. She was given insulin bolus that did improve her blood sugar but is still somewhat elevated we are getting give her second dose of insulin she declines she would rather go home and bolus her insulin out of her pump. She does have a cystitis. Her white count is normal. She was given Rocephin we will discharge her home with cefdinir 300 mg twice daily for 7 days. Encouraged patient return if she has worsening blood sugars or develops nausea or vomiting is uncontrolled Lab Data 12/29/24 07:40 12/29/24 08:34 Radiology Impressions Chest X-Ray 12/29/24 06:58 Impression: Negative chest. Laboratory Results WBC 5.62 10^3/uL (3.29-11.43) 12/29/24 07:40 RBC 5.04 10^6/uL (3.85-5.65) 12/29/24 07:40 Hgb 14.90 g/dL (11.27-16.99) 12/29/24 07:40 Hct 45.0 % (36-47) 12/29/24 07:40 MCV 89.3 fl (85-98) 12/29/24 07:40 MCH 29.6 pg (27-33) 12/29/24 07:40 MCHC 33.1 g/dL (30-55) 12/29/24 07:40 RDW 13.3 % (12.1-15.1) 12/29/24 07:40 Plt Count 220 10^3/cmm (157-399) 12/29/24 07:40 MPV 11.4 fL (7.4-10.4) H 12/29/24 07:40 Neut % (Auto) 69.6 % 12/29/24 07:40 Lymph % (Auto) 17.6 % 12/29/24 07:40 O'Brien % (Auto) 11.0 % 12/29/24 07:40 Eos % (Auto) 0.9 % 12/29/24 07:40 Baso % (Auto) 0.5 % 12/29/24 07:40 Neut # (Auto) 3.91 10^3/uL (1.8-7.7) 12/29/24 07:40 Lymph # (Auto) 1.0 10^3/uL (0.8-4.8) 12/29/24 07:40 O'Brien # (Auto) 0.6 10^3/uL (0.2-0.9) 12/29/24 07:40 Eos # (Auto) 0.1 10^3/uL (0.0-0.8) 12/29/24 07:40 Baso # (Auto) 0.0 10^3/uL (0.0-0.1) 12/29/24 07:40 Nucleated RBC % (auto) 0 % 12/29/24 07:40 Nucleated RBCs # 0.0 /100WBC 12/29/24 07:40 Specimen Type Arterial 12/29/24 07:15 Sample Site Radial, left 12/29/24 07:15 ABG pH 7.42 (7.35-7.45) 12/29/24 07:15 ABG pCO2 37.8 mmHg (35-45) 12/29/24 07:15 ABG pO2 86.4 mmHg (80.0-100.0) 12/29/24 07:15 ABG PO2/FiO2 Ratio 411 12/29/24 07:15 ABG HCO3 24.6 mmol/L (22-26) 12/29/24 07:15 ABG O2 Saturation 97.4 12/29/24 07:15 ABG Base Excess 0.3 mmol/L (-2.0-2.0) 12/29/24 07:15 Pop Test Pos 12/29/24 07:15 A-a O2 Gradient 2.0 mmHg (5-10) L 12/29/24 07:15 Hematocrit 42.7 % (37-47) 12/29/24 07:15 Hgb O2 Saturation 95.3 % (95-100) 12/29/24 07:15 Carboxyhemoglobin 1.1 %THgb (0.4-20.1) 12/29/24 07:15 Methemoglobin 1.0 % (0.4-1.5) 12/29/24 07:15 Total Hemoglobin 13.9 g/dL (12-16) 12/29/24 07:15 Sodium 135.0 mmol/L (131-143) 12/29/24 07:15 Potassium 3.9 mmol/L (3.5-5.0) 12/29/24 07:15 Glucose 539.0 mg/dL (70-115) H 12/29/24 07:15 Ionized Calcium 1.3 mmol/L (1.1-1.4) 12/29/24 07:15 O2 Delivery Device Room air 12/29/24 07:15 FiO2 21.0 % 12/29/24 07:15 Corporate Tax Preparer ID Delta 12/29/24 07:15 Sodium 139 mmol/L (136-145) 12/29/24 08:34 Potassium 4.1 mmol/L (3.5-5.1) 12/29/24 08:34 Chloride 103 mmol/L (98-107) 12/29/24 08:34 Carbon Dioxide 22 mmol/L (22-29) 12/29/24 08:34 Anion Gap 18.1 (5-19) 12/29/24 08:34 BUN 7 mg/dL (6-20) 12/29/24 08:34 Creatinine 0.5 mg/dL (0.5-0.9) 12/29/24 08:34 GFR Calculation 143.9 mL/min (90-130) H 12/29/24 08:34 Glucose 425 mg/dL (65-115) H 12/29/24 08:34 POC Glucose 324 mg/dL (70-110) H 12/29/24 10:11 Calculated Osmolality 304 mOsm/kg (285-295) H 12/29/24 08:34 Calcium 8.5 mg/dL (8.5-10.5) 12/29/24 08:34 Total Bilirubin 0.3 mg/dL (0.15-1.2) 12/29/24 08:34 AST 9 U/L (0-32) 12/29/24 08:34 ALT 7 U/L (0-33) 12/29/24 08:34 Alkaline Phosphatase 85 U/L (35-105) 12/29/24 08:34 Total Protein 6.4 g/dL (6.6-8.7) L 12/29/24 08:34 Albumin 3.5 g/dL (3.5-5.2) 12/29/24 08:34 Globulin 2.9 g/dL (1.3-4.6) 12/29/24 08:34 HCG, Qual Negative (Negative) 12/29/24 08:34 Urine Color Yellow (Yellow) 12/29/24 08:07 Urine Appearance Clear (CLEAR) 12/29/24 08:07 Urine pH 5.5 (5-7) 12/29/24 08:07 Ur Specific [place] 1.044 (1.005-1.030) H 12/29/24 08:07 Urine Protein Negative (Negative) 12/29/24 08:07 Urine Glucose (UA) 3+ (Normal) H 12/29/24 08:07 Urine Ketones Negative (Negative) 12/29/24 08:07 Urine Blood Negative (Negative) 12/29/24 08:07 Urine Nitrate Negative (Negative) 12/29/24 08:07 Urine Bilirubin Negative (Negative) 12/29/24 08:07 Urine Urobilinogen 0.2 mg/dL (Negative) 12/29/24 08:07 Ur Leukocyte Esterase Negative (Negative) 12/29/24 08:07 Urine RBC 0-2 /hpf (0-2) 12/29/24 08:07 Urine WBC 11-20 /hpf (0-5) H 12/29/24 08:07 Ur Squamous Epith Cells 0-5 /hpf (0-5) 12/29/24 08:07 Amorphous Sediment Not Reportable 12/29/24 08:07 Urine Bacteria None seen /hpf (NONE) 12/29/24 08:07 Hyaline Casts 0.40 /lpf 12/29/24 08:07 Serum Ketones Negative (Negative) 12/29/24 08:34 All radiology interpretation(s) finalized by discharge Discharge Plan Discharge Patient Disposition: Home Clinical Impression: Cystitis, Hyperglycemia Diabetes mellitus type 1 Qualifiers: Diabetes mellitus complication status: with other specified complication Q ualified Code(s): E10.69 - Type 1 diabetes mellitus with other specified complication Condition: Stable Prescriptions: New cefdinir 300 mg capsule 300 mg PO BID Qty: 14 0RF No Action (DME) Dexcom G7 High Density Press Operator Misc See Rx Instructions .Route Qty: 1 2RF Rx Instructions: As directed (DME) Dexcom G7 Sensor Device See Rx Instructions .Route Qty: 2 3RF Rx Instructions: As directed medroxyprogesterone [Depo-Provera] 150 mg/mL syringe 150 mg IM ONCE Qty: 1 4RF potassium citrate 10 mEq (1,080 mg) tablet extended release 10 meq PO BID Qty: 180 3RF propranolol 10 mg tablet 10 mg PO BID Qty: 180 1RF (DME) MiniMed 780G Insulin Pump Misc See Rx Instructions .Route Qty: 1 0RF Rx Instructions: As directed ibuprofen 800 mg tablet 800 mg PO TID PRN (Reason: pain) Qty: 45 0RF cholecalciferol (vitamin D3) 50 mcg (2,000 unit) capsule 2,000 unit PO DAILY Qty: 30 0RF insulin lispro 100 unit/mL solution See Rx Instructions .ROUTE .COMPLEX Qty: 20 3RF Dose Instruction: MAX DAILY DOSE OF 50 UNITS VIA INSULIN PUMP Rx Instructions: MAX DAILY DOSE OF 50 UNITS VIA INSULIN PUMP NyQuil D 6.54-83-84-500 mg/15 mL Liquid 30 ml PO Q6H PRN (Reason: cold or flu) Discharge Orders: Discharge ED (Routine); Ordered 12/29/24 Ordered By: Andrew Vargas Referrals: Yvan Bass MD [Primary Care Provider] - Discharge Diet: Diabetic Discharge Activity: Increase activity as tolerated Patient Instructions: Opioid Safety, Pain Management Activity Restrictions/Additional Instructions: Thank you for choosing [facility] for your healthcare needs today. It is very important that you follow up as instructed or that you return to the Emergency Department should you have concerns or if your condition changes or worsens in any way. You are seen in the emergency room for elevated blood sugars. Blood sugar improved with fluids and insulin. There is no signs of DKA. You do still have signs of a bladder infection recommend you take another round of antibiotics we reviewed the previous culture recommend you start cefdinir 300 mg twice a day for 7 days follow-up with your primary care doctor to review your insulin control Print Language: Sinhala Coding Level of Care Code ED Drywall Sprayer for Jose Noriega
--- NOTE | 2024-12-29 07:10 | ECG_ITS ---
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 Measurements Intervals [place] Rate: 103 P: 22 ID: [id number] QRS: 72 QRSD: 85 T: 42 QT: 334 QTc: 439 Interpretive Statements SINUS TACHYCARDIA WITH SHORT ID INTERVAL ABNORMAL RHYTHM ECG Compared to ECG 08/04/2022 01:10:59 Sinus rhythm no longer present T-wave abnormality no longer present Electronically Signed On 12-30-2024 08:52:16 CDT by Radha Harris M.D. [email or web address]
[2024-12-29 07:18] LABS: Glucose Point of Care 443 mg/dL (70-110)
[2024-12-29 07:26] LABS: ABG PCO2 37.8 mmHg (35-45); ABG PH Result 7.42 (7.35-7.45); Arterial Blood Gas Hematocrit 42.7 % (37-47); Base Excess ABG 0.3 mmol/L (-2.0-2.0); Blood Gas Allen Test Pos; Blood Gas Operator Identificat WALCI; Blood Gas Sample Site Radial, left; Blood Gas Sample Type Arterial; Carboxyhemoglobin 1.1 %THgb (0.4-20.1); HCO3 ABG 24.6 mmol/L (22-26); HGB O2 Sat 95.3 % (95-100); Ionized Calcium Level - ABG 1.3 mmol/L (1.1-1.4); Oxygen Device ROOM AIR; Oxygen Saturation ABG 97.4; PO2 ABG 86.4 mmHg (80.0-100.0); PO2 FiO2 Ratio Arterial Blood 411; Potassium Level - ABG 3.9 mmol/L (3.5-5.0); Total Hemoglobin 13.9 g/dL (12-16)
[2024-12-29 07:56] LABS: Basophils % 0.5 %; Eosinophils # 0.1 10^3/uL (0.0-0.8); Eosinophils % 0.9 %; Lymphocytes % 17.6 %; Mean Corpuscular HGB Conc 33.1 g/dL (30-55); Mean Corpuscular Hemoglobin 29.6 pg (27-33); Mean Corpuscular Volume 89.3 fl (85-98); Mean Platelet Volume 11.4 fL (7.4-10.4); Monocytes # 0.6 10^3/uL (0.2-0.9); Neutrophils # 3.91 10^3/uL (1.8-7.7); Neutrophils % 69.6 %; Nucleated Red Blood Cells % 0 %; Platelet Count 220 10^3/cmm (157-399); Red Blood Count 5.04 10^6/uL (3.85-5.65); Red Cell Distribution Width 13.3 % (12.1-15.1); White Blood Count 5.62 10^3/uL (3.29-11.43)
[2024-12-29] MEDS: sodium chloride 0.9% 1,000 ML 999 ML IV ×2 (07:58→09:23)
[2024-12-29] MEDS: ondansetron 2 mg/ML SDV 2 mL 4 MG IVP (07:59)
[2024-12-29 08:16] VITALS: BP 117/73; PULSE 91; RESP 23; O2SAT 100
[2024-12-29 08:37] LABS: Bilirubin Urine Negative (Negative); Blood Urine Negative (Negative); Glucose Urine UA 3+ (Normal); Ketones Urine Negative (Negative); Leukocyte Esterase Urine Negative (Negative); Nitrate Urine Negative (Negative); Protein Urine Negative (Negative); Urine Appearance Clear (CLEAR); Urine Color Yellow (Yellow); Urobilinogen Urine 0.2 mg/dL (Negative); pH Urine 5.5 (5-7)
[2024-12-29 08:42] LABS: Add Urine Microscopic? YES; Bacteria Urine None Seen /hpf; RBC Urine 0-2 /hpf (0-2); Squamous Epithelial Cell Urine 0-5 /hpf (0-5)
[2024-12-29 08:46] LABS: Specific Gravity, Urine 1.044 (1.005-1.030)
[2024-12-29 08:55] LABS: Alanine Aminotransferase 7 U/L (0-33); Albumin Level 3.5 g/dL (3.5-5.2); Alkaline Phosphatase 85 U/L (35-105); Anion Gap 18.1 (5-19); Aspartate Amino Transferase 9 U/L (0-32); Blood Urea Nitrogen 7 mg/dL (6-20); Calcium 8.5 mg/dL (8.5-10.5); Carbon Dioxide 22 mmol/L (22-29); Chloride 103 mmol/L (98-107); Creatinine Clr Calc Pharmacy 151.1544; Globulin 2.9 g/dL (1.3-4.6); Glomerular Filtration Rate 143.9 mL/min (90-130); Glucose 425 mg/dL (65-115); Osmolality Calculated 304 mOsm/kg (285-295); Potassium 4.1 mmol/L (3.5-5.1); Sodium 139 mmol/L (136-145); Total Bilirubin 0.3 mg/dL (0.15-1.2); Total Protein 6.4 g/dL (6.6-8.7)
[2024-12-29 08:59] LABS: HCG, Serum Qual Negative (Negative); Ketone (Acetest) Serum Negative (Negative)
[2024-12-29] MEDS: insulin regular-human 100 units/1 mL 15 UNIT IVP (09:24)
[2024-12-29] MEDS: cefTRIAXone 1,000 mg SDV 1000 MG IVP (09:24)
[2024-12-29 09:48] VITALS: BP 101/72; PULSE 84; RESP 23; O2SAT 93
[2024-12-29 10:16] LABS: Glucose Point of Care 324 mg/dL (70-110)
--- NOTE | 2024-12-29 10:29 | PC.NURSE ---
PATIENT WANTS TO LEAVE. PATIENT REFUSED SECOND DOSE INSULIN. PATIENT STATES, I CAN TAKE THAT AT HOME.
== END 2024-12-29 10:41 | disposition home or self-care (01) ==
PROVIDERS: Emergency Provider Family Medicine; PCP Family Medicine
DX: E10.65 Type 1 diabetes mellitus with hyperglycemia (principal); N30.90 Cystitis, unspecified without hematuria
CPT/HCPCS: 36415; 36416; 36600; 71045; 80051; 80053; 81001; 82009; 82330; 82805; 82962; 84703; 85025; 93005; 96361; 96374; 96375; 96376; 99285; J0696; J1815; J2405; J7030

== ENCOUNTER 2025-02-28 11:18 | Outpatient (CLI) | payer MEDICAID, SELFPAY ==
[2025-02-28 13:21] LABS: Creatinine Urine, Random 16 mg/dL (28-217); Microalbumin Random Urine 1 ug/dL (0-20)
[2025-02-28 13:23] LABS: Microalbum Creatinine Ratio Ur 63 mg/dL (0-20)
[2025-02-28 13:31] LABS: Estmated Average Glucose 246; Hemoglobin A1C 10.2 % (4.0-6.0)
[2025-02-28 13:32] LABS: 25 Hydroxy Vitamin D 11 ng/mL (30-100); Alanine Aminotransferase 10 U/L (0-33); Albumin Level 4.3 g/dL (3.5-5.2); Alkaline Phosphatase 108 U/L (35-105); Blood Urea Nitrogen 11 mg/dL (6-20); Carbon Dioxide 19 mmol/L (22-29); Chloride 97 mmol/L (98-107); Chol HDL Ratio 3.41 mg/dL (0.0-4.40); Cholesterol 215 mg/dL (0-200); Globulin 3.2 g/dL (1.3-4.6); Glomerular Filtration Rate 143.9 mL/min (90-130); HDL Cholesterol 63 mg/dL (60-100); LDL Cholesterol Calculated 133 mg/dL (50-129); LDL HDL Ratio 2.11 RATIO (0.00-3.22); Osmolality Calculated 296 mOsm/kg (285-295); Sodium 132 mmol/L (136-145); Total Bilirubin 0.4 mg/dL (0.15-1.2); Total Protein 7.5 g/dL (6.6-8.7); Triglycerides 96 mg/dL (0-150)
[2025-02-28 14:14] LABS: Anion Gap 20.2 (5-19); Aspartate Amino Transferase 16 U/L (0-32); Potassium 4.2 mmol/L (3.5-5.1)
[2025-02-28 14:16] LABS: Glucose 505 mg/dL (65-115)
== END 2025-02-28 11:19 | disposition home or self-care (01) ==
PROVIDERS: PCP Family Medicine; Visit Provider Internal Medicine
DX: E10.69 Type 1 diabetes mellitus with other specified complication (principal); E04.9 Nontoxic goiter, unspecified; E55.9 Vitamin D deficiency, unspecified
CPT/HCPCS: 36415; 80053; 80061; 82044; 82306; 83036

== ENCOUNTER 2025-03-11 08:08 | Emergency (ER) | payer MEDICAID, SELFPAY ==
--- OUTSIDE RECORDS SUMMARY | 2024-05-03 06:30 | XMS_ITS ---
Author Organization [facility] Address [address] [place] [address] Care Team Providers Care Woodwork Teacher Name Role Phone Kali VILLARREAL, Yvan Primary Care Provider Unavailab Laura Garcia Unavailable [phone] Dav VILLARREAL, Dat Brown Unavailable REASON FOR VISIT Dexcom Refills Encounters Encounter Location Date Provider Diagnosis [facility] [address] [place] [address] 05/03/2024 Laura Koroma Plan Of Treatment No Information Progress Notes * Apryl DURAN LDOB:1994 (29 yo F)Acc No.[id number]:05/03/2024 Progress Notes Patient: Apryl MCCRAY Provider: Lonnie Koroma APRN :1995 A ge:28 Y S ex:Female Date:05/03/2024 Address:[address] [facility], [facility] Pcp:Yvan Bass MD Subjective: * Chief Complaints: * 1 . Dexcom Refills. * Medical History: Objective: * Vitals: Assessment: Plan: * Treatment: * Billing Information: * Visit Code: * Procedure Codes: * Electronic signature of Laura Koroma APRN on 03/11/2025 at 08:12 AM CDT Sign off status: Pending * Provider: Lonnie Koroma APRN Date: 0 05/03/2024 Generated for Printi ng/Faxing/eTransmitting on: 0 03/11/2025 08:12 AM CDT
--- OUTSIDE RECORDS SUMMARY | 2025-03-11 08:12 | XMS_ITS | Patient Health Record ---
Author Organization [facility] Address [address] [place] [address] Care Team Providers Care Coordinator Of Genetic Services Name Role Phone Kali VILLARREAL, Yvan Primary Care Provider Unavailab Laura Garcia Unavailable [phone] Dat Demarco MD Unavailable Unavailable Allergies Allergen (clinical drug ingredient) Drug/Non Drug Allergy documented on EMR Reaction Allergy Type Onset Date Status sulfamethoxazole / trimethoprim Bactrim rash Drug Allergy Active Substance with sulfonamide structure and antibacterial mechanism of action (substance) Sulfa Antibiotics rash Drug Allergy A ctive Reason For Referral No Information Medications Medication SIG (Take, Route, Frequency, Duration) Notes Start Date End Date Status Lantus SoloStar 100 UNIT/ML as directed Subcutaneous pump back up Not-Taking Dexcom G7 Magistrate Assistant - as directed with sensors daily for 365 days 04/28/2023 Active NovoLIN R 100 UNIT/ML as directed Injection Sliding scale: 1.5 per 10 carbs; Bolus 2 units per 50 over 150. Not-Taking Dexcom G7 Sensor - as directed In vitro Change every 10 days for 30 days Dx:E11.65 05/06/2024 Active Dexcom G7 Sensor - USE DIRECTED AND REPLACE EVERY 10 DAYS. for 30 Active NovoLOG 100 UNIT/ML INJECT UP TO 50 UNITS PER PUMP DAILY for 30 Active PNV Not-Taking Social History Tobacco Use: Social History Observation Description Date Details (start date - stop date) Current Smoker NA - NA xTobacco Use/Smoking Question Answer Notes Are you a former smoker How long has it been since you last smoked? 6-12 months Tobacco Control (Standard) Question Answer Notes Tobacco use: Current smoker How often do you smoke cigarettes? Some days, bu t not every day How many cigarettes a day do you smoke? 6-10 Are you interested in quitting? Not ready to ramos t Problems Problem Type SNOMED Code ICD Code Onset Dates Problem Status W/U Status Risk Notes Problem 603452149259739 Type 1 diabetes mellitus with hyperglycemia (E10.65) Active confirmed Problem 521497979 Insulin pump in place (Z96.41) Active confirmed Problem 571330832 Stress at home (F43.9) Active confirmed Problem 721795893 Current use of insulin (Z79.4) Active confirmed Problem 534979730 Type 1 diabetes mellitus affecting in second trimester, antepartum (O24.012) Active confirmed Vital Signs Heart Rate 95 /min 05/06/2024 Blood pressure diastolic 65 mm Hg 05/06/2024 Oximetry 99 % 05/06/2024 Height-cm 170.18 cm 05/06/2024 Weight-kg 52.16 kg 05/06/2024 Height 67 in 05/06/2024 Blood pressure systolic 95 mm Hg 05/06/2024 Weight 115 lbs 05/06/2024 BMI 18.01 kg/m2 05/06/2024 Encounters Encounter Location Date Provider Diagnosis [facility] [address] [place] [address] 05/06/2024 Laura Koroma Type 1 diabetes mellitus with hyperglycemia E10.65 ; Current use of insulin Z79.4 ; Insulin pump in place Z96.41 ; Stress at home F43.9 and Uses self-applied continuous glucose monitoring device Z97.8 Formerly [facility] [id number] [place] [address] 04/28/2024 Laura Koroma [facility] [place] [address] 05/09/2024 Laura Koroma Assessments Encounter Date Diagnosis (ICD Code) Assessment Notes Treatment Notes Treatment Clinical Notes Section Notes 05/06/2024 Type 1 diabetes mellitus with hyperglycemia (ICD-10 - E10.65) The patient is using a Medtronic 670G insulin pump and Dexcom G7 continuous glucose monitor. She is using NovoLog insulin since starting the pump. The data from the cgm is downloaded and interpreted, hyperglycemia is noted. Encouraged patient to use bolus function with each meal and two hours after the meal when her post prandial blood glucose is over 180 mg/dL. Patient will need new prescription for Dexcom G7 sensors, this is sent to [facility] pharmacy. Discussed use of Omnipod, Beta Bionics or Tandem. Encouraged patient to discuss a referral for Tandem pump with her Watershed Engineer. Provided patient with a list of her current pump supplies and provided her with approximately four months of pump supplies for the Medtronic pump, free of charge. She agrees to follow up with her primary care clinic as instructed, and she will follow up here at [facility] for any adjustments or PRN. All questions answered and concerns addressed. Total time spent with patient is 35 minutes 05/06/2024 Current use of insulin (ICD-10 - Z79.4) 05/06/[address] (ICD-10 - Z96.41) 05/06/2024 Stress at home (ICD-10 - F43.9) 05/06/2024 Uses self-applied continuous glucose monitoring device (ICD-10 - Z97.8) Plan Of Treatment No Information Insurance Providers Payer Name Payer Address Payer Phone Subscriber Number Group Number Insured Name Patient Relationship to Insured Coverage Start Date Coverage End Date [facility] [employer] D[employer] [address] [place] [address] [id number] Apryl Duran Self - patient is the insured Medical (General) History Medical History History ICD Code Diabetes Type 1-06/2001 Caused by Cat sc ratch fever Left arm lymph node removal 10/1999 D&C 02/2021 Surgical History Surgery Date(Month/Year) miscarriage 06/2023 D&C Hospitalization History Reason Date(Month/Year) Dehydration 04/2023 [facility] hyperglycemia 04/2024
[2025-03-11 08:14] VITALS: BP 121/84; PULSE 84; RESP 18; TEMP 36.7; O2SAT 96; BMI 21.9
--- NOTE | 2025-03-11 08:38 | CTR_ITS ---
PROCEDURE INFORMATION: Exam: CT Abdomen And Pelvis Without Contrast Exam date and time: 03/11/2025 9:18 AM Age: 29 years old Clinical indication: Abdominal pain; Flank; Right; Hematuria; Additional info: Right flank/abd pain TECHNIQUE: Imaging protocol: Computed tomography of the abdomen and pelvis without contrast. Radiation optimization: All CT scans at this facility use at least one of these dose optimization techniques: automated exposure control; mA and/or kV adjustment per patient size (includes targeted exams where dose is matched to clinical indication); or iterative reconstruction. COMPARISON: US abdomen complete* [id number] 03/22/2020 6:42 AM RADIATION DOSE METRICS: Total DLP (mGy-cm): 370.2 FINDINGS: Lungs: The included portions of the lung bases are free of infiltrate. Esophagus: There is wall thickening involving the distal esophagus which may indicate gastroesophageal reflux or esophagitis. Liver: The liver is mildly enlarged measuring 18.0 cm in sagittal dimension. No focal liver lesions are detected. Gallbladder and biliary ducts: Normal. No calcified stones. No ductal dilation. Pancreas: Normal. No ductal dilation. Spleen: The spleen is unremarkable. The adrenal glands are normal Adrenal glands: See Spleen finding. Kidneys and ureters: There are no left renal calculi. There is no left hydronephrosis. There appears to be a very tiny nonobstructing calculus at the left UV junction best seen on series 3, image 170 and series 5, image 47. There is a nonobstructing calculus in the right mid kidney measuring 3 x 2 mm. There is minimal fullness of the right intrarenal collecting system. There is mild dilatation of the right ureter into the pelvis without distal ureteral or UV junction calculus in the right. Perhaps findings on the right are due to recent passage of stone. There are no renal masses detected Stomach and bowel: The bowel-gas pattern is not obstructed. There is a large amount of stool in the colon suggesting constipation. Appendix: The appendix is normal. Intraperitoneal space: Unremarkable. No free air. No significant fluid collection. Vasculature: Unremarkable. No abdominal aortic aneurysm. Lymph nodes: Unremarkable. No enlarged lymph nodes. Urinary bladder: There is mild wall thickening involving the bladder. Reproductive: There is no uterine or adnexal mass. Bones/joints: There are degenerative changes in the symphysis, hips, sacroiliac joints and spine. There is a compression fracture L1 of indeterminate age though appearance suggested is likely old. Soft tissues: There is a small umbilical hernia containing only fat. Patient has a umbilical jewelry in place. CT/CT kidney stone [id number] IMPRESSION: 1. Wall thickening distal esophagus suggesting gastroesophageal reflux/esophagitis 2. Nonobstructing calculus right kidney. Mild fullness right intrarenal collecting system and right ureter into the pelvis. No ureteral or UV junction calculus detected. Perhaps findings are secondary to recent passage of a stone or edema or mild stricture formation at the right UV junction 3. There is a nonobstructing tiny stone at the left UV junction 4. Hepatomegaly. No focal liver lesions detected 5. Large amount of stool in the colon suggesting constipation without fecal impaction 6. Possible poorly calcified stones or sludge in the gallbladder versus artifact. Negative for gallbladder wall thickening or biliary ductal dilatation 7. Normal appendix 8. Small umbilical hernia containing only fat 9. Wall thickening bladder 10. Compression fracture L1 vertebral body
[2025-03-11] MEDS: sodium chloride 0.9% 1,000 ML 999 ML IV (08:52)
[2025-03-11] MEDS: HYDROmorphone 0.5 MG/0.5 ML INJ IVP (08:53)
[2025-03-11] MEDS: ketorolac 30 mg/mL INJ 15 MG IVP (08:53)
[2025-03-11] MEDS: ondansetron 2 mg/ML SDV 2 mL 4 MG IVP (08:53)
[2025-03-11 08:58] LABS: Basophils % 0.6 %; Eosinophils # 0.2 10^3/uL (0.0-0.8); Eosinophils % 2.9 %; Hematocrit 44.3 % (36-47); Lymphocytes # 1.9 10^3/uL (0.8-4.8); Lymphocytes % 37.1 %; Mean Platelet Volume 11.6 fL (7.4-10.4); Monocytes # 0.4 10^3/uL (0.2-0.9); Monocytes % 8.5 %; Neutrophils # 2.63 10^3/uL (1.8-7.7); Neutrophils % 50.5 %; Nucleated Red Blood Cells % 0 %; Platelet Count 227 10^3/cmm (157-399); Red Blood Count 4.87 10^6/uL (3.85-5.65); Red Cell Distribution Width 12.6 % (12.1-15.1)
[2025-03-11 09:13] LABS: Bilirubin Urine Negative (Negative); Blood Urine Negative (Negative); Glucose Urine UA Negative (Normal); Ketones Urine Negative (Negative); Leukocyte Esterase Urine 2+ (Negative); Nitrate Urine Positive (Negative); Protein Urine Negative (Negative); Specific Gravity, Urine 1.015 (1.005-1.030); Urine Appearance Clear (CLEAR); Urine Color Yellow (Yellow); pH Urine 6.5 (5-7)
[2025-03-11 09:14] LABS: HCG Qualitative Urine. Negative (Negative)
[2025-03-11 09:15] LABS: Add Urine Microscopic? YES; Bacteria Urine 4+ /hpf; Hyaline Casts Urine 0.81 /lpf; RBC Urine 0-2 /hpf (0-2); Squamous Epithelial Cell Urine 0-5 /hpf (0-5); WBC Urine 51-100 /hpf (0-5)
[2025-03-11 09:28] LABS: Alanine Aminotransferase 12 U/L (0-33); Albumin Level 4.1 g/dL (3.5-5.2); Alkaline Phosphatase 82 U/L (35-105); Anion Gap 14.2 (5-19); Aspartate Amino Transferase 17 U/L (0-32); Blood Urea Nitrogen 12 mg/dL (6-20); Calcium 9.4 mg/dL (8.5-10.5); Carbon Dioxide 28 mmol/L (22-29); Chloride 102 mmol/L (98-107); Globulin 3.1 g/dL (1.3-4.6); Glomerular Filtration Rate 143.9 mL/min (90-130); Glucose 97 mg/dL (65-115); Osmolality Calculated 290 mOsm/kg (285-295); Potassium 4.2 mmol/L (3.5-5.1); Sodium 140 mmol/L (136-145); Total Bilirubin 0.2 mg/dL (0.15-1.2); Total Protein 7.2 g/dL (6.6-8.7)
--- NOTE | 2025-03-11 09:32 | ED_ITS ---
HPI - Abdominal Pain 2 General: Chief Complaint: Abdominal Pain Stated Complaint: kidney stone with blood in urine Time Seen by Provider: 03/11/25 08:20 History of Present Illness: 29-year-old female with well-controlled type 1 diabetes presents emergency department reporting that she started waking up at around 4 AM thinking that she was sleeping wrong. By about 5 AM she was starting to get more severe pain in the right flank. When she finally woke up she reports it became severe and she had nausea without vomiting. She reports it feels like a kidney stone which she has had in the past. She reports she has chronic mild diarrhea every morning, that was unchanged this morning. She denies any obvious signs of dysuria, urinary frequency or urgency. She has not seen any hematuria this morning. 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 #1 ea 05/03/24 (Dexcom G7 Crystal Evaluator) blood-glucose sensor (Dexcom G7 #2 ea 06/16/24 Sensor device) ibuprofen 800 mg tablet 800 mg PO TID PRN pain #45 t abs 07/08/24 potassium citrate 10 mEq (1,080 10 meq PO BID #180 tab s 09/16/24 mg) tablet,extended release subcutaneous insulin pump (MiniMed #1 ea 09/16/24 780G Insulin Pump) insulin lispro 100 unit/mL See Rx Instructions .Route 12/15/24 subcutaneous solution .COMPLEX #20 mL cholecalciferol (vitamin D3) 1,250 50,000 unit PO Q7D #14 caps 03/03/25 mcg (50,000 unit) capsule cephalexin 500 mg capsule 500 mg PO Q6H 10 days #40 ca ps 03/11/25 hydrocodone 5 mg-acetaminophen 325 1 tab PO Q4H PRN pa in #20 tabs 03/11/25 mg tablet ondansetron 4 mg disintegrating 4 mg PO Q6H PRN nausea and 03/11/25 tablet vomiting #14 tabs sennosides 8.6 mg-docusate sodium 1 tab-cap PO BID PRN constipation 03/11/25 50 mg tablet (Senna with Docusate #30 tabs Sodium) Allergies Allergy/AdvReac Type Severity Reaction Status Date / Time Sulfa (Sulfonamide Allergy Intermediate rash Verified 01/26/25 13:35 Antibiotics) sulfamethoxazole (From Allergy ADR-Itching Verified 01/26/25 13:35 Bactrim) trimethoprim (From Bactrim) Allergy ADR-Itching Verified 01/26/25 13:35 sertraline (From Zoloft) AdvReac Severe Manic Verified 01/26/25 13:35 episode, insomnia, nightmares Review of Systems 2 General: Reports: 10 or more systems reviewed and unremarkable except in HPI and below Const: Denies: fever(s), chills or body aches Eyes: Denies: change in vision ENMT: Denies: throat pain Card: Denies: chest pain, edema or syncope Resp: Denies: dyspnea or productive cough GI: Denies: vomiting or diarrhea : Denies: dysuria or urinary frequency Musc: Denies: neck pain, extremity pain or extremity swelling Skin/Breast: Denies: rash or erythema Neuro: Denies: headache(s), numbness in extremities, weakness in extremities, lack of coordination or difficulty walking PFSH ED 2 PFSH: Medical History Psychiatric care Thyroid goiter Hx of back injury burst fracture on L1 and L2, was scheduled for surgery, but did not have Diabetes mellitus type 1 Blood sugars under much better control. 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 Special ashlyn needs: No Agree to transfusion: Yes Female Reproductive History: Para: 0 Physical Exam 2 Narrative: EXAM NARRATIVE: Alert, oriented, uncomfortable Const: COMMON NORMALS: no limitations, alert and well nourished EXAM LIMITATIONS: no altered mental status HENMT: COMMON NORMALS: normocephalic, atraumatic and external ears normal H EAD & SCALP: normocephalic and atraumatic EXTERNAL EAR: Yes external ears normal MOUTH: no muffled voice Eye: COMMON NORMALS: conjunctivae normal and no scleral icterus C ONJUNCTIVA: Yes conjunctivae normal Neck/C-Spine: COMMON NORMALS: no JVD GENERAL: Yes normal visual inspection and Yes trachea midline Resp: COMMON NORMALS: normal respiratory effort, No use of accessory muscles and clear to auscultation bilaterally AUSCULTATION: clear to auscultation bilaterally Cardio: COMMON NORMALS: no JVD, regular rate and regular rhythm RATE: r egular rate RHYTHM: regular rhythm GI: COMMON NORMALS: Soft to palpation, non-tender, No hepatosplenomegaly present and no masses PALPATION: Yes Soft to palpation, No Firmness to palpation present (GI), No Tenderness to palpation present (GI), No Guarding due to palpation present (GI), No Rigid due to palpation, Yes No hepatosplenomegaly present, No Pulsatile mass present and No Bladder palpation abnormal OTHER: Positive right CVA percussion tenderness, mild left CVA percussion tenderness : BLADDER/KIDNEY EXAM: No Bladder palpation abnormal Extremity: COMMON NORMALS: normal to inspection Neuro: COMMON NORMALS: moves all extremities, no focal motor deficits and no sensory deficits noted SENSORIUM/ORIENTATION: Yes alert SPEECH: speech normal Psych: COMMON NORMALS: mental status grossly normal, Normal thought process present, cooperative, normal affect and speech normal SPEECH: Yes normal speech THOUGHT PROCESS: Normal thought process present Skin: COMMON NORMALS: no rashes or lesions noted, turgor normal and no jaundice GENERAL SKIN EXAM: no rashes or lesions noted and turgor normal Course 2 Vital Signs: Vital signs: Vital Signs Temperature 98.1 F 03/11/25 08:14 Pulse Rate 84 03/11/25 08:14 Respiratory Rate 18 03/11/25 08:14 Blood Pressure 121/84 03/11/25 08:14 Pulse Oximetry 96 03/11/25 08:14 Oxygen Delivery Me thod Room Air 03/11/25 08:14 MDM - Abdominal Pain Medical Decision Making Differential diagnosis includes renal colic/ ureterolithiasis, UTI/ pyelonephritis, constipation, or for biliary or hepatic etiology, musculoskeletal pain, other. CBC and CMP are reassuring. Patient has right CVA percussion tenderness and mild left CVA percussion tenderness. hCG is negative UA came back and shows leukocyte Esterase, white blood cells, bacteria. It appears consistent with a urinary tract infection. Urine culture will be obtained. Patient will be given 2 g of Rocephin. Patient is stable for outpatient management at this time. CT ABD PELV: IMPRESSION: 1. Wall thickening distal esophagus suggesting gastroesophageal reflux/esophagitis 2. Nonobstructing calculus right kidney. Mild fullness right intrarenal collecting system and right ureter into the pelvis. No ureteral or UV junction calculus detected. Perhaps findings are secondary to recent passage of a stone or edema or mild stricture formation at the right UV junction 3. There is a nonobstructing tiny stone at the left UV junction 4. Hepatomegaly. No focal liver lesions detected 5. Large amount of stool in the colon suggesting constipation without fecal impaction 6. Possible poorly calcified stones or sludge in the gallbladder versus artifact. Negative for gallbladder wall thickening or biliary ductal dilatation 7. Normal appendix 8. Small umbilical hernia containing only fat 9. Wall thickening bladder 10. Compression fracture L1 vertebral body In applying a clinical lens to these numerous CT findings. The most salient finding is the fact that there is no obstructing stone and that there is a possible mild stricture formation at the right UV junction. This might explain why the right CVA was more tender than the left CVA. It is unclear if this is going to remain of any clinical consequence. The patient is stable for discharge but if she is not improving or continues to have severe flank pain or fails antibiotics, she is going to need to see a urologist for further evaluation. Lab Data 03/11/25 08:40 03/11/25 08:40 Labs/Radiology: Radiology Impressions Abdomen/Pelvis CT 03/11/25 08:38 IMPRESSION: 1. Wall thickening distal esophagus suggesting gastroesophageal reflux/esophagitis 2. Nonobstructing calculus right kidney. Mild fullness right intrarenal collecting system and right ureter into the pelvis. No ureteral or UV junction calculus detected. Perhaps findings are secondary to recent passage of a stone or edema or mild stricture formation at the right UV junction 3. There is a nonobstructing tiny stone at the left UV junction 4. Hepatomegaly. No focal liver lesions detected 5. Large amount of stool in the colon suggesting constipation without fecal impaction 6. Possible poorly calcified stones or sludge in the gallbladder versus artifact. Negative for gallbladder wall thickening or biliary ductal dilatation 7. Normal appendix 8. Small umbilical hernia containing only fat 9. Wall thickening bladder 10. Compression fracture L1 vertebral body Laboratory Results WBC 5.20 10^3/uL (3.29-11.43) 03/11/25 08:40 RBC 4.87 10^6/uL (3.85-5.65) 03/11/25 08:40 Hgb 14.60 g/dL (11.27-16.99) 03/11/25 08:40 Hct 44.3 % (36-47) 03/11/25 08:40 MCV 91.0 fl (85-98) 03/11/25 08:40 MCH 30.0 pg (27-33) 03/11/25 08:40 MCHC 33.0 g/dL (30-55) 03/11/25 08:40 RDW 12.6 % (12.1-15.1) 03/11/25 08:40 Plt Count 227 10^3/cmm (157-399) 03/11/25 08:40 MPV 11.6 fL (7.4-10.4) H 03/11/25 08:40 Neut % (Auto) 50.5 % 03/11/25 08:40 Lymph % (Auto) 37.1 % 03/11/25 08:40 Cataño % (Auto) 8.5 % 03/11/25 08:40 Eos % (Auto) 2.9 % 03/11/25 08:40 Baso % (Auto) 0.6 % 03/11/25 08:40 Neut # (Auto) 2.63 10^3/uL (1.8-7.7) 03/11/25 08:40 Lymph # (Auto) 1.9 10^3/uL (0.8-4.8) 03/11/25 08:40 Cataño # (Auto) 0.4 10^3/uL (0.2-0.9) 03/11/25 08:40 Eos # (Auto) 0.2 10^3/uL (0.0-0.8) 03/11/25 08:40 Baso # (Auto) 0.0 10^3/uL (0.0-0.1) 03/11/25 08:40 Nucleated RBC % (auto) 0 % 03/11/25 08:40 Nucleated RBCs # 0.0 /100WBC 03/11/25 08:40 Sodium 140 mmol/L (136-145) 03/11/25 08:40 Potassium 4.2 mmol/L (3.5-5.1) 03/11/25 08:40 Chloride 102 mmol/L (98-107) 03/11/25 08:40 Carbon Dioxide 28 mmol/L (22-29) 03/11/25 08:40 Anion Gap 14.2 (5-19) 03/11/25 08:40 BUN 12 mg/dL (6-20) 03/11/25 08:40 Creatinine 0.5 mg/dL (0.5-0.9) 03/11/25 08:40 GFR Calculation 143.9 mL/min (90-130) H 03/11/25 08:40 Glucose 97 mg/dL (65-115) 03/11/25 08:40 Calculated Osmolality 290 mOsm/kg (285-295) 03/11/25 08:40 Calcium 9.4 mg/dL (8.5-10.5) 03/11/25 08:40 Total Bilirubin 0.2 mg/dL (0.15-1.2) 03/11/25 08:40 AST 17 U/L (0-32) 03/11/25 08:40 ALT 12 U/L (0-33) 03/11/25 08:40 Alkaline Phosphatase 82 U/L (35-105) 03/11/25 08:40 Total Protein 7.2 g/dL (6.6-8.7) 03/11/25 08:40 Albumin 4.1 g/dL (3.5-5.2) 03/11/25 08:40 Globulin 3.1 g/dL (1.3-4.6) 03/11/25 08:40 HCG, Qual Negative (Negative) 03/11/25 08:21 Urine Color Yellow (Yellow) 03/11/25 08:21 Urine Appearance Clear (CLEAR) 03/11/25 08:21 Urine pH 6.5 (5-7) 03/11/25 08:21 Ur Specific [place] 1.015 (1.005-1.030) 03/11/25 08:21 Urine Protein Negative (Negative) 03/11/25 08:21 Urine Glucose (UA) Negative (Normal) 03/11/25 08:21 Urine Ketones Negative (Negative) 03/11/25 08:21 Urine Blood Negative (Negative) 03/11/25 08:21 Urine Nitrate Positive (Negative) A 03/11/25 08:21 Urine Bilirubin Negative (Negative) 03/11/25 08:21 Urine Urobilinogen 1.0 mg/dL (Negative) 03/11/25 08:21 Ur Leukocyte Esterase 2+ (Negative) A 03/11/25 08:21 Urine RBC 0-2 /hpf (0-2) 03/11/25 08:21 Urine WBC 51-100 /hpf (0-5) H 03/11/25 08:21 Ur Squamous Epith Cells 0-5 /hpf (0-5) 03/11/25 08:21 Amorphous Sediment Not Reportable 03/11/25 08:21 Urine Bacteria 4+ /hpf (NONE) H 03/11/25 08:21 Hyaline Casts 0.81 /lpf 03/11/25 08:21 All radiology interpretation(s) finalized by discharge Discharge Plan Discharge Patient Disposition: Home Clinical Impression: Complicated urinary tract infection, Fecal retention, Hepatomegaly Condition: Stable Prescriptions: New cephalexin 500 mg capsule 500 mg PO Q6H 10 Days Qty: 40 0RF hydrocodone-acetaminophen 5-325 mg tablet 1 tab PO Q4H PRN (Reason: pain) Qty: 20 0RF sennosides-docusate sodium [Senna with Docusate Sodium] 8.6-50 mg tablet 1 tab-cap PO BID PRN (Reason: constipation) Qty: 30 0RF ondansetron 4 mg tablet,disintegrating 4 mg PO Q6H PRN (Reason: nausea and vomiting) Qty: 14 0RF No Action (DME) Dexcom G7 Crystal Evaluator Misc See Rx Instructions .Route Qty: 1 2RF Rx Instructions: As directed (DME) Dexcom G7 Sensor Device See Rx Instructions .Route Qty: 2 3RF Rx Instructions: As directed medroxyprogesterone [Depo-Provera] 150 mg/mL syringe 150 mg IM ONCE Qty: 1 4RF potassium citrate 10 mEq (1,080 mg) tablet extended release 10 meq PO BID Qty: 180 3RF (DME) MiniMed 780G Insulin Pump Misc See Rx Instructions .Route Qty: 1 0RF Rx Instructions: As directed ibuprofen 800 mg tablet 800 mg PO TID PRN (Reason: pain) Qty: 45 0RF insulin lispro 100 unit/mL solution See Rx Instructions .ROUTE .COMPLEX Qty: 20 3RF Dose Instruction: MAX DAILY DOSE OF 50 UNITS VIA INSULIN PUMP Rx Instructions: MAX DAILY DOSE OF 50 UNITS VIA INSULIN PUMP cholecalciferol (vitamin D3) 1,250 mcg (50,000 unit) capsule 50,000 unit PO Q7D Qty: 14 1RF tamsulosin 0.4 mg capsule 0.4 mg PO DAILY PRN (Reason: kidney stones ) Discharge Orders: Discharge ED (Routine); Ordered 03/11/25 Ordered By: Bello Corbett Referrals: Yvan Bass MD [Primary Care Provider, [facility]] - 03/20/25 Clinical Impression: Complicated urinary tract infection Patient Instructions: Opioid Safety, Pain Management, Patient Portal & Kashif Instructions Activity Restrictions/Additional Instructions: 1. You have a few nonobstructing kidney stones. These are not causing a problem today. They could cause a problem in the future. There are no kidney stones visualized within the ureters today. 2. You have a urinary tract infection. There is a little bit of swelling in your right collecting system coming out of your kidney. This could indicate that you have some narrowing of the right ureter as it passes towards the bladder. This may be why you have asymmetric pain on the right side. It could also predispose you to urinary tract infections that are difficult to treat or become recurrent. We recommend you follow-up with a urologist, particularly if you do not improve with usual medication. 3. Despite having diarrhea, you have a large amount of solid stool in your colon. It may be best for you to do a full bowel cleanout and then do a maintenance regimen. You might only be passing the liquid stool on the hard solid stool may be staying in your colon. 4. Your liver was slightly enlarged. This was an incidental finding. 5. The lower part of your esophagus is thickened which which suggest that you have chronic acid reflux. Please talk to your doctor about treatment. Return to the emergency department if you have high fever, high heart rate, low blood pressure, you are getting much worse, you have intractable pain, dehydration, or other complications. Otherwise you may follow-up with your primary care doctor. Print Language: South Sudanese Coding Level of Care Code ED Nylon Operator for Jose Noriega
[2025-03-11 09:34] LABS: Add Urine Culture? Yes
[2025-03-11] MEDS: cefTRIAXone 2,000 mg SDV 2000 MG IVP (10:07)
== END 2025-03-11 11:08 | disposition home or self-care (01) ==
PROVIDERS: Emergency Provider Emergency Medicine; PCP Family Medicine
DX: N39.0 Urinary tract infection, site not specified (principal); K59.00 Constipation, unspecified; R16.0 Hepatomegaly, not elsewhere classified; Z79.4 Long term (current) use of insulin; E10.9 Type 1 diabetes mellitus without complications
CPT/HCPCS: 36415; 74176; 80053; 81001; 81025; 85025; 87077; 87086; 87186; 96361; 96374; 96375; 99285; J0696; J1171; J1885; J2405; J7030

== ENCOUNTER 2025-03-19 09:48 | Emergency (ER) | payer MEDICAID, SELFPAY ==
--- OUTSIDE RECORDS SUMMARY | 2024-05-03 06:30 | XMS_ITS ---
Author Organization [facility] Address [address] [facility] [place] [address] Care Team Providers Care Income Tax Auditor Name Role Phone Kali VILLARREAL, Yvan Primary Care Provider Unavailab Laura Garcia Unavailable [phone] Dav VILLARREAL, Dat Brown Unavailable REASON FOR VISIT Dexcom Refills Encounters Encounter Location Date Provider Diagnosis [facility] [address] [place] [address] 05/03/2024 Laura Koroma Plan Of Treatment No Information Progress Notes * Apryl DURAN LDOB:1994 (29 yo F)Acc No.[id number]:05/03/2024 Progress Notes Patient: Apryl MCCRAY Provider: Lonnie Koroma APRN :1995 A ge:28 Y S ex:Female Date:05/03/2024 Address:[address] [facility] Pcp:Yvan Bass MD Subjective: * Chief Complaints: * 1 . Dexcom Refills. * Medical History: Objective: * Vitals: Assessment: Plan: * Treatment: * Billing Information: * Visit Code: * Procedure Codes: * Electronic signature of Laura Koroma APRN on 03/19/2025 at 09:53 AM CDT Sign off status: Pending * Provider: Lonnie Koroma APRN Date: 0 05/03/2024 Generated for Printi ng/Faxing/eTransmitting on: 0 03/19/2025 09:53 AM CDT
--- OUTSIDE RECORDS SUMMARY | 2025-03-19 09:53 | XMS_ITS | Patient Health Record ---
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 - as directed with sensors daily for [...] Problem Status W/U Status Risk Notes Problem 323075190698434 Type 1 diabetes mellitus with hyperglycemia (E10.65) Active confirmed Problem 058436800 Insulin pump in place (Z96.41) Active confirmed Problem 902051042 Stress at home (F43.9) Active confirmed Problem 256090004 Current use of insulin (Z79.4) Active confirmed Problem 532460493 Type 1 diabetes mellitus affecting in second trimester, antepartum (O24.012) Active confirmed Vital Signs Heart Rate 95 /min 05/06/2024 Blood pressure diastolic 65 mm Hg 05/06/2024 Oximetry 99 % 05/06/2024 Height-cm 170.18 cm 05/06/2024 Weight-kg 52.16 kg 05/06/2024 Height 67 in 05/06/2024 Blood pressure systolic 95 mm Hg 05/06/2024 Weight 115 lbs 05/06/2024 BMI 18.01 kg/m2 05/06/2024 Encounters Encounter Location Date Provider Diagnosis [facility] [address] [place] [address] 04/28/2024 [facility] [address] [place] [address] 05/09/2024 [facility] [address] [place] [address] 05/06/2024 Laura Koroma Type 1 diabetes mellitus with hyperglycemia E10.65 ; Current use of insulin Z79.4 ; Insulin pump in place Z96.41 ; Stress at home F43.9 and Uses self-applied continuous glucose monitoring device Z97.8 Assessments Encounter Date Diagnosis (ICD Code) Assessment [...] Dexcom G7 sensors, this is sent to [facility] pharmacy. Discussed use of Omnipod, Beta Bionics or Tandem. Encouraged patient to discuss a referral for Tandem pump with her Reproductive Healthcare Assistant. Provided patient with a list of her current pump supplies and provided her with approximately four months of pump supplies for the Medtronic pump, free of charge. She agrees to follow up with her primary care clinic as instructed, and she will follow up here at [facility] for any adjustments or PRN. [...] Insured Coverage Start Date Coverage End Date [facility] [employer] DME [address] [place] [address] [id number] Apryl Duran Self - patient is the insured Medical (General) History Medical History History ICD Code Diabetes Type 1-06/2001 Caused by Cat sc ratch fever Left arm lymph node removal 10/1999 D&C 02/2021 Surgical History Surgery Date(Month/Year) D&C miscarriage 06/2023 Hospitalization History Reason Date(Month/Year) Dehydration 04/2023 [facility] hyperglycemia 04/2024
[2025-03-19 09:55] VITALS: BP 120/88; PULSE 99; RESP 16; TEMP 36.9; O2SAT 99; BMI 19.5
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
[2025-03-19] MEDS: HYDROcodone-acetaminophen 5-325 mg Tablet 1 TAB PO (10:10)
[2025-03-19 11:16] VITALS: BP 106/75; PULSE 89; PULSE 96; RESP 15; O2SAT 100; O2SAT 99
--- NOTE | 2025-03-22 07:22 | DCPLANNER ---
Message sent to Ortho for follow up-Medical Decision Making Patient presents here with a distal clavicle fracture along with radial head fracture we will place her in a splint and sling no other injuries were noted she stable for discharge follow-up PCP return if worsening.
== END 2025-03-19 11:34 | disposition home or self-care (01) ==
PROVIDERS: Emergency Provider Emergency Medicine; PCP Family Medicine
DX: S42.031A Displaced fracture of lateral end of right clavicle, initial encounter for closed fracture (principal); S52.121A Displaced fracture of head of right radius, initial encounter for closed fracture; Z79.4 Long term (current) use of insulin; E10.9 Type 1 diabetes mellitus without complications; X58.XXXA Exposure to other specified factors, initial encounter
CPT/HCPCS: 29105; 71101; 73030; 73080; 99284; A4565; J9999

== ENCOUNTER 2025-05-15 07:43 | Emergency (ER) | payer MEDICAID, SELFPAY ==
--- OUTSIDE RECORDS SUMMARY | 2024-05-03 06:30 | XMS_ITS ---
Author Organization [facility] Address [address] [place] [address] Care Team Providers Care Machine Steak Tenderizer Name Role Phone Kali VILLARREAL, Yvan Primary Care Provider Unavailab Laura Garcia Unavailable [phone] Dav VILLARREAL, Dat Brown Unavailable REASON FOR VISIT Dexcom Refills Encounters Encounter Location Date Provider Diagnosis [facility] [address] [place] [address] 05/03/2024 Laura Koroma Plan Of Treatment No Information Progress Notes * Apryl DURAN LDOB:1994 (29 yo F)Acc No.[id number]:05/03/2024 Progress Notes Patient: Apryl Hillman Provider: Lonnie Koroma APRN :1995 A ge:28 Y S ex:Female Date:05/03/2024 [facility] Pcp:Yvan Bass MD Subjective: * Chief Complaints: * D excom Refills * Electronic signature of Laura Koroma APRN on 05/15/2025 at 07:49 AM CDT Sign off status: Pending * Provider: Lonnie Koroma APRN Date: 05/03/2024 Generated for Conrado cutler/Fasameer/eTransmitting on: 0 05/15/2025 07:49 AM CDT
--- NOTE | 2025-05-15 07:48 | XRR_ITS ---
PROCEDURE INFORMATION: Exam: XR Left Knee Exam date and time: 05/15/2025 08:02 AM Age: 29 years old Clinical indication: Injury or trauma; Other: Twisted lt knee; Sprain or strain; Patella or knee; Left TECHNIQUE: Imaging protocol: Radiologic exam of the left knee. Views: 3 views. COMPARISON: No relevant prior studies available. FINDINGS: Bones/joints: Normal bony alignment. No acute osseous abnormality. No osteochondral defect. No knee joint effusion. Soft tissues: Normal. XR/XR knee LT 3V* [id number] IMPRESSION: No acute osseous abnormality or knee joint effusion.
--- NOTE | 2025-05-15 07:49 | W.ED.LOWEXIN ---
HPI - Extremity Injury (Lower) General: Chief Complaint: Extremity Injury, Lower Stated Complaint: lt leg inj Time Seen by Provider: 05/15/25 07:44 Source: patient Mode of arrival: ambulatory Limitations: no limitations History of Present Illness: 29-year-old female states that she slipped on loose gravel last night and twisted her left knee. States she been having left knee pain since then. States pains been sharp in nature rates an 8 out of 10 is much worse with movement and trying to ambulate denies any other injuries. Related Data Home Medications ?Medication ?Instructions ?Recorded ?Confirmed tamsulosin 0.4 mg capsule 0.4 mg PO DAILY PRN kidney stones 03/11/25 05/03/25 Previous Rx's ?Medication ?Instructions ?Recorded medroxyprogesterone 150 mg/mL 150 mg IM ONCE #1 mL 04/07/24 intramuscular syringe (Depo-Provera) blood-glucose,bankman,cont #1 ea 05/03/24 (Dexcom G7 Aids Social Worker) ibuprofen 800 mg tablet 800 mg PO TID PRN pain #45 tabs 07/08/24 potassium citrate 10 mEq (1,080 10 meq PO BID #180 tabs 09/16/24 mg) tablet,extended release subcutaneous insulin pump (MiniMed #1 ea 09/16/24 780G Insulin Pump) cholecalciferol (vitamin D3) 1,250 50,000 unit PO Q7D #14 caps 03/03/25 mcg (50,000 unit) capsule hydrocodone 5 mg-acetaminophen 325 1 tab PO Q4H PRN pain #20 tabs 03/11/25 mg tablet ondansetron 4 mg disintegrating 4 mg PO Q6H PRN nausea and 03/11/25 tablet vomiting #14 tabs sennosides 8.6 mg-docusate sodium 1 tab-cap PO BID PRN constipation 03/11/25 50 mg tablet (Senna with Docusate #30 tabs Sodium) hydrocodone 5 mg-acetaminophen 325 1 tab PO Q6H PRN pain #14 tabs 03/19/25 mg tablet insulin lispro 100 unit/mL See Rx Instructions .Route 04/25/25 subcutaneous solution .COMPLEX #20 mL blood-glucose sensor (Dexcom G7 #2 ea 05/01/25 Sensor device) naproxen 500 mg tablet (Naprosyn) 500 mg PO BID PRN pain #20 tabs 05/15/25 Allergies Allergy/AdvReac Type Severity Reaction Status Date / Time Sulfa (Sulfonamide Allergy Intermediate rash Verified 03/23/25 15:11 Antibiotics) sulfamethoxazole (From Allergy ADR-Itching Verified 03/23/25 15:11 Bactrim) trimethoprim (From Bactrim) Allergy ADR-Itching Verified 03/23/25 15:11 sertraline (From Zoloft) AdvReac Severe Manic Verified 03/23/25 15:11 episode, insomnia, nightmares Review of Systems Const: Denies: fever(s), chills, body aches or change in appetite ENMT: Denies: throat pain or dental pain Card: Denies: chest pain Resp: Denies: dyspnea GI: Denies: abdominal pain, nausea, vomiting or diarrhea Musc: Reports: extremity pain; Denies: neck pain or back pain Skin/Breast: Denies: rash Neuro: Denies: headache(s) PFSH ED PFSH: Medical History Psychiatric care Thyroid goiter Hx of back injury burst fracture on L1 and L2, was scheduled for surgery, but did not have Diabetes mellitus type 1 Blood sugars under much better control. 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 Special ashlyn needs: No Agree to transfusion: Yes Female Reproductive History: Para: 0 Physical Exam Const: COMMON NORMALS: no acute distress, patient oriented x3 and healthy appearing HENMT: COMMON NORMALS: normocephalic and atraumatic HEAD & SCALP: normocephalic and atraumatic Eye: COMMON NORMALS: conjunctivae normal CONJUNCTIVA: Yes conjunctivae normal Neck/C-Spine: COMMON NORMALS: full ROM and supple Chest: COMMONS NORMALS: normal inspection of the chest Resp: COMMON NORMALS: normal respiratory effort, No retractions, No use of accessory muscles and clear to auscultation bilaterally AUSCULTATION: clear to auscultation bilaterally Cardio: COMMON NORMALS: regular rate, regular rhythm and No murmurs present (Cardio) RATE: regular rate RHYTHM: regular rhythm Extremity: COMMON NORMALS: full ROM NARRATIVE EXTREMITY EXAM: Tenderness noted left knee does have some pain with range of motion no obvious deformity Neuro: COMMON NORMALS: patient oriented x3, moves all extremities and no focal motor deficits Psych: COMMON NORMALS: mental status grossly normal, Normal thought process present and cooperative THOUGHT PROCESS: Normal thought process present Skin: COMMON NORMALS: no rashes or lesions noted and no wounds GENERAL SKIN EXAM: no rashes or lesions noted Course Vital Signs: Vital signs: Vital Signs Pulse Rate 97 05/15/25 07:50 Respiratory Rate 18 05/15/25 07:50 Blood Pressure 104/77 05/15/25 07:50 Pulse Oximetry 97 05/15/25 07:50 Oxygen Delivery Me thod Room Air 05/15/25 07:50 MDM - Extremity Injury (Lower) Medical Decision Making Patient presents for knee sprain x-ray shows no fracture she is weight-bear as tolerated we will place her in an immobilizer along with crutches she has follow-up with orthopedics. Medical Records I reviewed the patient's medical records. XR interpretation done by ED provider, pending radiology final review ED provider radiology interpretation(s): xr L knee: no acute abnormality Discharge Plan Discharge Patient Disposition: Home Clinical Impression: Left knee sprain Condition: Stable Prescriptions: New naproxen [Naprosyn] 500 mg tablet 500 mg PO BID PRN (Reason: pain) Qty: 20 0RF No Action (DME) Dexcom G7 Aids Social Worker Misc See Rx Instructions .Route Qty: 1 2RF Rx Instructions: As directed medroxyprogesterone [Depo-Provera] 150 mg/mL syringe 150 mg IM ONCE Qty: 1 4RF potassium citrate 10 mEq (1,080 mg) tablet extended release 10 meq PO BID Qty: 180 3RF (DME) MiniMed 780G Insulin Pump Misc See Rx Instructions .Route Qty: 1 0RF Rx Instructions: As directed ibuprofen 800 mg tablet 800 mg PO TID PRN (Reason: pain) Qty: 45 0RF cholecalciferol (vitamin D3) 1,250 mcg (50,000 unit) capsule 50,000 unit PO Q7D Qty: 14 1RF insulin lispro 100 unit/mL solution See Rx Instructions .ROUTE .COMPLEX Qty: 20 0RF Dose Instruction: USE DIRECTED VIA INSULIN PUMP. MAX DAILY DOSE OF 50 UNITS Rx Instructions: USE DIRECTED VIA INSULIN PUMP. MAX DAILY DOSE OF 50 UNITS (DME) Dexcom G7 Sensor Device See Rx Instructions .Route Qty: 2 3RF Rx Instructions: As directed tamsulosin 0.4 mg capsule 0.4 mg PO DAILY PRN (Reason: kidney stones ) hydrocodone-acetaminophen 5-325 mg tablet 1 tab PO Q4H PRN (Reason: pain) Qty: 20 0RF sennosides-docusate sodium [Senna with Docusate Sodium] 8.6-50 mg tablet 1 tab-cap PO BID PRN (Reason: constipation) Qty: 30 0RF ondansetron 4 mg tablet,disintegrating 4 mg PO Q6H PRN (Reason: nausea and vomiting) Qty: 14 0RF hydrocodone-acetaminophen 5-325 mg tablet 1 tab PO Q6H PRN (Reason: pain) Qty: 14 0RF Discharge Orders: Discharge ED (Routine); Ordered 05/15/25 Ordered By: Helen Swan Referrals: Esa Mendoza DO [Physician, Orthopedics] - 4-7 days Yvan Bass MD [Primary Care Provider, Family Practice] Discharge Diet: Advance as tolerated Discharge Activity: Use walker/crutches as instructed Patient Instructions: Knee Sprain (ED) Print Language: Greek Coding Level of Care Code ED Sanitation Manager for Jose Noriega
--- OUTSIDE RECORDS SUMMARY | 2025-05-15 07:49 | XMS_ITS | Patient Health Record ---
Author Organization [facility] Address [address] [place] [address] Care Team Providers Care Biologist Aide Name Role Phone Kali VILLARREAL, Yvan Primary Care Provider Unavailab Laura Garcia Unavailable [phone] Dat Demarco MD Unavailable Unavailable Allergies Allergen [...] End Date Status Lantus SoloStar 100 UNIT/ML Solution Pen-injector as directed Subcutaneous pump back up Not-Taking Dexcom G7 Palliative Care Nurse - Device as directed with sensors daily; Duration: 365 days 04/28/2023 Active NovoLIN R 100 UNIT/ML Solution as directed Injection Sliding scale: 1.5 per 10 carbs; Bolus 2 units per 50 over 150. Not-Taking Dexcom G7 Sensor - Miscellaneous as directed In vitro Change every 10 days; Duration: 30 days Dx:E11.65 05/06/2024 Active Dexcom G7 Sensor - Miscellaneous USE DIRECTED AND REPLACE EVERY 10 DAYS.; Duration: 30 Active NovoLOG 100 UNIT/ML Solution INJECT UP TO 50 UNITS PER PUMP DAILY; Duration: 30 Active PNV Not-Taking Social History Tobacco Use: Social History Observation Description Date Details (start date - stop date) Current Smoker NA - NA Social History Tobacco Use: Social Info Question Answer Notes Tobacco Control (Standard) Tobacco use: Current smoker How often do you smoke cigarettes? Some days, but not every day How many cigarettes a day do you smoke? 6-10 Are you interested in quitting? Not ready to quit xTobacco Use/Smoking Are you a former smoker How long has it been since you last smoked? 6-12 months Problems Problem Type SNOMED Code ICD Code Onset Dates Problem Status W/U Status Risk Notes Problem Hyperglycemia due to type 1 diabetes mellitus (329103905035145) Type 1 diabetes mellitus with hyperglycemia (E10.65) Active confirmed Problem Insulin pump present (finding) (483685808) Insulin pump in place (Z96.41) Active confirmed Problem Stress at home (117317036) Stress at home (F43.9) Active confirmed Problem Long-term current use of insulin (306330740) Current use of insulin (Z79.4) Active confirmed Problem Type 1 diabetes mellitus affecting in second trimester, antepartum (O24.012) Active confirmed Plan Of Treatment No Information Insurance Providers Payer Name Payer Address Payer Phone Subscriber Number Group Number Insured Name Patient Relationship to Insured Coverage Start Date Coverage End Date [facility]AN [facility] [address] [place] [address] [phone] [id number] Apryl Duran Self - patient is the insured Medical (General) History Medical History History ICD Code Diabetes Type 1-06/2001 Caused by Cat sc ratch fever Left arm lymph node removal 10/1999 D&C 02/2021 Surgical History Surgery Date(Month/Year) miscarriage 06/2023 D&C Hospitalization History Reason Date(Month/Year) Dehydration 04/2023 [facility] hyperglycemia 04/2024
[2025-05-15 07:50] VITALS: BP 104/77; PULSE 97; RESP 18; O2SAT 97
[2025-05-15] MEDS: HYDROcodone-acetaminophen 5-325 mg Tablet 1 TAB PO (07:54)
--- NOTE | 2025-05-15 08:28 | DCPLANNER ---
messaged ortho for er f/u
== END 2025-05-15 08:24 | disposition home or self-care (01) ==
PROVIDERS: Emergency Provider Emergency Medicine; PCP Family Medicine
DX: S83.92XA Sprain of unspecified site of left knee, initial encounter (principal); Z79.4 Long term (current) use of insulin; F17.290 Nicotine dependence, other tobacco product, uncomplicated; E11.9 Type 2 diabetes mellitus without complications; W01.0XXA Fall on same level from slipping, tripping and stumbling without subsequent striking against object, initial encounter
CPT/HCPCS: 29530; 73562; 99283; J9999

== ENCOUNTER → 2025-05-18 15:37 | Outpatient (BNVA) | payer MEDICAID, SELFPAY | PROVIDERS: PCP Family Medicine; Visit Provider Orthopaedic Surgery | DX: S89.92XA Unspecified injury of left lower leg, initial encounter (principal); X58.XXXA Exposure to other specified factors, initial encounter | CPT/HCPCS: 73562 ==

== ENCOUNTER 2025-05-19 13:32 | Outpatient (CLI) | payer MEDICAID, SELFPAY ==
--- NOTE | 2025-05-19 13:45 | MR_ITS ---
WS: [id number] MRI LEFT KNEE NONCONTRAST TECHNIQUE: Axial PD, coronal PD fat sat, coronal PD, sagittal PD, and sagittal PD fat-sat images obtained. CLINICAL INFORMATION: knee pain COMPARISON: None. FINDINGS: Distal quadriceps and patella tendons are intact. ACL and PCL appear intact. Medial and lateral meniscus appear intact. Nondisplaced fracture involving the anteromedial tibial plateau extending to the anterior articular surface. This extends into the lateral tibial plateau anteriorly. Associated edema. No acute appearing meniscal tears. Normal medial and lateral collateral ligaments. Normal patella. Normal medial and lateral patellar retinaculum. Normal popliteal fossa. Fibular head appears normal. MR/MR knee LT wo con* [id number] IMPRESSION: 1. Nondisplaced medial tibial plateau fracture extending anteriorly to the art icular surface. This extends into the lateral tibial plateau anteriorly. Minima l depression. Associated edema. 2. ACL and PCL appear intact. 3. Normal lateral collateral ligament. Normal medial collateral ligament. 4. No acute appearing meniscal tears. Outbridge grading: grade I: focal areas of hyperintensity with normal contour
== END 2025-05-19 13:33 | disposition home or self-care (01) ==
LOC: RAD 13:33
PROVIDERS: PCP Family Medicine; Visit Provider Orthopaedic Surgery
DX: S89.92XA Unspecified injury of left lower leg, initial encounter (principal); X58.XXXA Exposure to other specified factors, initial encounter
CPT/HCPCS: 73721

== ENCOUNTER 2025-05-24 19:25 | Emergency (ER) | payer MEDICAID, SELFPAY ==
--- OUTSIDE RECORDS SUMMARY | 2024-05-03 06:30 | XMS_ITS ---
Author Organization [facility] Address [address] [place] [address] Care Team Providers Care Stationary Boiler Fireman Name Role Phone Kali VILLARREAL, Yvan Primary Care Provider Unavailab Laura Garcia Unavailable [phone] Dav VILLARREAL, Dat Brown Unavailable REASON FOR VISIT Dexcom Refills Encounters Encounter Location Date Provider Diagnosis [facility] [address] [place] [address] 05/03/2024 Laura Koroma Plan Of Treatment No Information Progress Notes * Apryl DURAN LDOB:1994 (29 yo F)Acc No.[id number]:05/03/2024 Progress Notes Patient: Apryl Hillman Provider: Lonnie Koroma APRN :1995 A ge:28 Y S ex:Female Date:05/03/2024 [facility] Pcp:Yvan Bass MD Subjective: * Chief Complaints: * D excom Refills * Electronic signature of Laura Koroma APRN on 05/24/2025 at 07:31 PM CDT Sign off status: Pending * Provider: Lonnie Koroma APRN Date: 0 05/03/2024 Generated for Conrado cutler/Farandalg/eTransmitting on: 0 05/24/2025 07:31 PM CDT
--- OUTSIDE RECORDS SUMMARY | 2025-05-24 19:31 | XMS_ITS | Patient Health Record ---
Author Organization [facility] Address [address] [place] [address] Care Team Providers Care Buildings And Grounds Coordinator Name Role Phone Kali VILLARREAL, Yvan Primary Care Provider Unavailab Laura Garcia Unavailable [phone] Dat Demarco MD Unavailable Unavailable Allergies Allergen [...] Subcutaneous pump back up Not-Taking Dexcom G7 Lunchroom Mother - Device as directed with sensors daily; [...] Hyperglycemia due to type 1 diabetes mellitus (059439345706011) Type 1 diabetes mellitus with hyperglycemia (E10.65) Active confirmed Problem Insulin pump present (finding) (533450763) Insulin pump in place (Z96.41) Active confirmed Problem Stress at home (954023828) Stress at home (F43.9) Active confirmed Problem Long-term current use of insulin (008930746) Current use of insulin (Z79.4) Active confirmed Problem Type 1 diabetes mellitus affecting in second trimester, antepartum (O24.012) Active confirmed Plan Of Treatment No Information Insurance Providers Payer Name Payer Address Payer Phone Subscriber Number Group Number Insured Name Patient Relationship to Insured Coverage Start Date Coverage End Date [facility] COMMUNITY PLAN [facility] [address] [place] [address] [id number] Apryl Duran Self - patient is the insured Medical (General) History Medical History History ICD Code Diabetes Type 1-06/2001 Caused by Cat sc ratch fever Left arm lymph node removal 10/1999 D&C 02/2021 Surgical History Surgery Date(Month/Year) D&C miscarriage 06/2023 Hospitalization History Reason Date(Month/Year) Dehydration 04/2023 [facility] hyperglycemia 04/2024
[2025-05-24 19:37] VITALS: BP 117/83; PULSE 101; RESP 14; TEMP 36.8; O2SAT 99
--- NOTE | 2025-05-24 20:13 | XRR_ITS ---
PROCEDURE INFORMATION: Exam: XR Left Knee Exam date and time: 05/24/2025 8:32 PM Age: 29 years old Clinical indication: Pain; Knee; Left; Additional info: Knee pain, states recently fractured TECHNIQUE: Imaging protocol: Radiologic exam of the left knee. 48 image(s) are submitted. Views: 3 views. COMPARISON: MR knee LT wo con* [id number] 05/19/2025 1:49 PM , 05/18/2025 x-ray study of the left knee. FINDINGS: Bones/joints: Normal. Soft tissues: Normal. XR/XR knee LT 3V* [id number] IMPRESSION: No acute findings. No change since previous x-ray study.
[2025-05-24] MEDS: HYDROcodone-acetaminophen 7.5-325 mg Tablet 1 TAB PO (20:17)
--- NOTE | 2025-05-24 20:35 | ED_ITS ---
HPI - Extremity Problem General: Chief complaint: Extremity Injury, Lower Stated complaint: knee broke something new wrong pain numb cold Time Seen by Provider: 05/24/25 19:37 Source: patient Mode of arrival: ambulatory Limitations: no limitations History of Present Illness: Patient is a 29-year-old female who presents the emergency department complaining of left knee pain. States that she was seen here in the emergency department on 05/15, diagnosed with knee sprain and subsequently had MRI showing nondisplaced medial tibial plateau fracture. States she was ambulating with crutches today, when she was climbing out of her truck and twisted her knee, causing pain she is currently rating 10/10. Has wearing a brace, states she is set to see orthopedics tomorrow to discuss her MRI results and possible surgery. [id number] pain medications have not been working. States that she is having numbness distally in her foot. 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,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 05/03/24 (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) ibuprofen 800 mg tablet 800 mg PO TID PRN pain #45 t abs 07/08/24 potassium citrate 10 mEq (1,080 10 meq PO BID #180 tab s 09/16/24 mg) tablet,extended release subcutaneous insulin pump (MiniMed #1 ea 09/16/24 780G Insulin Pump) cholecalciferol (vitamin D3) 1,250 50,000 unit PO Q7D #14 caps 03/03/25 mcg (50,000 unit) capsule hydrocodone 5 mg-acetaminophen 325 1 tab PO Q4H PRN pa in #20 tabs 03/11/25 mg tablet ondansetron 4 mg disintegrating 4 mg PO Q6H PRN nausea and 03/11/25 tablet vomiting #14 tabs sennosides 8.6 mg-docusate sodium 1 tab-cap PO BID PRN constipation 03/11/25 50 mg tablet (Senna with Docusate #30 tabs Sodium) hydrocodone 5 mg-acetaminophen 325 1 tab PO Q6H PRN pa in #14 tabs 03/19/25 mg tablet insulin lispro 100 unit/mL See Rx Instructions .Route 04/25/25 subcutaneous solution .COMPLEX #20 mL naproxen 500 mg tablet (Naprosyn) 500 mg PO BID PRN pa in #20 tabs 05/15/25 blood-glucose sensor (Dexcom G7 #2 ea 05/23/25 Sensor device) Allergies Allergy/AdvReac Type Severity Reaction Status Date / Time Sulfa (Sulfonamide Allergy Intermediate rash Verified 05/24/25 19:40 Antibiotics) sulfamethoxazole (From Allergy ADR-Itching Verified 05/24/25 19:40 Bactrim) trimethoprim (From Bactrim) Allergy ADR-Itching Verified 05/24/25 19:40 sertraline (From Zoloft) AdvReac Severe Manic Verified 05/24/25 19:40 episode, insomnia, nightmares Review of Systems General: Reports: 10 or more systems reviewed and unremarkable except in HPI and below Const: Denies: fever(s) or chills Card: Denies: chest pain Resp: Denies: dyspnea or productive cough GI: Denies: abdominal pain, nausea, vomiting or diarrhea : Denies: flank pain Musc: Reports: joint pain (left knee) and limited range of motion (left knee); Denies: neck pain, back pain, extremity pain, extremity swelling, joint swelling, joint redness, joint warmth or muscle weakness Skin/Breast: Denies: rash Neuro: Reports: numbness in extremities (LLE) and weakness in extremities (LLE); Denies: headache(s) PFSH ED PFSH: Medical History Psychiatric care Thyroid goiter Hx of back injury burst fracture on L1 and L2, was scheduled for surgery, but did not have Diabetes mellitus type 1 Blood sugars under much better control. 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 Special ashlyn needs: No Agree to transfusion: Yes Female Reproductive History: Para: 0 Physical Exam Const: COMMON NORMALS: no acute distress, patient oriented x3, no limitations, healthy appearing, alert and well nourished HENMT: COMMON NORMALS: normocephalic and atraumatic HEAD & SCALP: normocephalic and atraumatic Neck/C-Spine: COMMON NORMALS: full ROM, supple and no meningeal signs Resp: COMMON NORMALS: normal respiratory effort, No use of accessory muscles and clear to auscultation bilaterally AUSCULTATION: clear to auscultation bilaterally Cardio: COMMON NORMALS: regular rate and regular rhythm RATE: regular rate RHYTHM: regular rhythm Extremity: COMMON NORMALS: capillary refill normal and no clubbing, cyanosis or edema NARRATIVE EXTREMITY EXAM: Knee brace to the left knee, reproducible tenderness to palpation diffusely of the left knee, to very light palpation. She has jeans on which limits the skin examination and does not allow for further manipulation secondary to the pain. Does not attempt range of motion secondary to the pain. Distal pulses palpable, distal sensations intact and strength distally. Neuro: COMMON NORMALS: patient oriented x3, moves all extremities, no focal motor deficits and no sensory deficits noted SENSORIUM/ORIENTATION: Yes alert MENINGEAL SIGNS: Yes no meningeal signs Skin: COMMON NORMALS: no rashes or lesions noted GENERAL SKIN EXAM: no rashes or lesions noted Course Vital Signs: Vital signs: Vital Signs Temperature 98.2 F 05/24/25 19:37 Pulse Rate 101 H 05/24/25 19:37 Respiratory Rate 14 05/24/25 19:37 Blood Pressure 117/83 05/24/25 19:37 Pulse Oximetry 99 05/24/25 19:37 MDM - Extremity (Nontraumatic) Medical Decision Making Patient presenting with injuring her left knee, diagnosed recently with nondisplaced tibial plateau fracture of the left knee and is set to see orthopedics tomorrow. Has been ambulatory after this incident today while ambulating towards a vehicle, and exam overall limited due to her pain level but do not suspect any acute etiology. X-ray does not show any changes, and I feel that she needs to continue follow-up with orthopedics for further intervention. Pain much controlled here after [place], discharged stable condition and she is told to return with any new or worsening. Neurovascular exam was intact. Lab Data Radiology Impressions Knee X-Ray 05/24/25 20:13 IMPRESSION: No acute findings. No change since previous x-ray study. 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 Misc See Rx Instructions .Route Qty: 1 2RF Rx Instructions: As directed (DME) Dexcom G7 Sensor Device See Rx Instructions .Route Qty: 2 3RF Rx Instructions: As directed medroxyprogesterone [Depo-Provera] 150 mg/mL syringe 150 mg IM ONCE Qty: 1 4RF potassium citrate 10 mEq (1,080 mg) tablet extended release 10 meq PO BID Qty: 180 3RF (DME) MiniMed 780G Insulin Pump Misc See Rx Instructions .Route Qty: 1 0RF Rx Instructions: As directed ibuprofen 800 mg tablet 800 mg PO TID PRN (Reason: pain) Qty: 45 0RF cholecalciferol (vitamin D3) 1,250 mcg (50,000 unit) capsule 50,000 unit PO Q7D Qty: 14 1RF insulin lispro 100 unit/mL solution See Rx Instructions .ROUTE .COMPLEX Qty: 20 0RF Dose Instruction: USE DIRECTED VIA INSULIN PUMP. MAX DAILY DOSE OF 50 UNITS Rx Instructions: USE DIRECTED VIA INSULIN PUMP. MAX DAILY DOSE OF 50 UNITS tamsulosin 0.4 mg capsule 0.4 mg PO DAILY PRN (Reason: kidney stones ) hydrocodone-acetaminophen 5-325 mg tablet 1 tab PO Q4H PRN (Reason: pain) Qty: 20 0RF sennosides-docusate sodium [Senna with Docusate Sodium] 8.6-50 mg tablet 1 tab-cap PO BID PRN (Reason: constipation) Qty: 30 0RF ondansetron 4 mg tablet,disintegrating 4 mg PO Q6H PRN (Reason: nausea and vomiting) Qty: 14 0RF hydrocodone-acetaminophen 5-325 mg tablet 1 tab PO Q6H PRN (Reason: pain) Qty: 14 0RF naproxen [Naprosyn] 500 mg tablet 500 mg PO BID PRN (Reason: pain) Qty: 20 0RF Discharge Orders: Discharge ED (Routine); Ordered 05/24/25 Ordered By: Darci Johnson Referrals: Yvan Bass MD [Primary Care Provider, [facility]] Patient Instructions: Patient Portal & Kashif Instructions Activity Restrictions/Additional Instructions: Left Knee Fracture Discharge Diagnosis: Nondisplaced tibial plateau fracture, left knee. Current Status: No new injury on today's X-ray. Orthopedic follow-up scheduled for tomorrow. Discharge Instructions: - Weight Bearing: The patient should remain non-weight bearing on the left lower extremity until evaluated by orthopedics. This is consistent with consensus recommendations for minimally displaced tibial plateau fractures, which favor protected mobilization and defer weight bearing until fracture stability is confirmed. Crutches or a walker should be used for ambulation.[1] https://pubmed.ncbi.nlm.nih.gov/05353040 [2] https://pubmed.ncbi.nlm.nih.gov/08432675 - Immobilization: If a knee brace or splint was provided, it should be worn as instructed. Range of motion exercises may be initiated only if specifically recommended by orthopedics. Early knee motion is important for long-term function, but should be started under specialist guidance.[2] https://pubmed.ncbi.nlm.nih.gov/67307038 - Pain Management: Acetaminophen and/or NSAIDs may be used for pain control, unless contraindicated. Opioids should be reserved for severe pain and used only as needed. - Monitoring: The patient should monitor for signs of complications, including: - Increased pain, swelling, or deformity of the knee - Numbness, tingling, or weakness in the foot - Fever, chills, or drainage from the injury site If any of these occur, prompt medical attention is warranted. - Activity: The patient should avoid activities that place stress on the injured limb, including walking without assistive devices, running, jumping, or lifting heavy objects. - Follow-Up: The patient must keep the scheduled orthopedic appointment tomorrow for definitive management planning. Nonoperative management is supported for minimally displaced fractures, with good functional outcomes and low complication rates. Orthopedics will determine when weight bearing and physical therapy may be safely initiated.[1] https://pubmed.ncbi.nlm.nih.gov/22575754 [3] https://pubmed.ncbi.nlm.nih.gov/78306499 - Prognosis: Most patients with nondisplaced tibial plateau fractures treated nonoperatively achieve good to excellent functional outcomes, with rare complications. Early mobilization and adherence to follow-up are foster to optimal recovery.[1] https://pubmed.ncbi.nlm.nih.gov/41643735 [3] https://pubmed.ncbi.nlm.nih.gov/87772576 Contact Information: For questions or concerns prior to the orthopedic appointment, contact the emergency department or orthopedic clinic. Precautions: Do not bear weight on the injured leg until cleared by orthopedics. Do not remove immobilization devices unless instructed. Return Precautions: Return to the emergency department for: - Severe, uncontrolled pain - New numbness, tingling, or inability to move the foot - Signs of infection (fever, redness, drainage) - Sudden increase in swelling or deformity Summary: The patient is stable for discharge with protected mobilization and non-weight bearing status. Orthopedic follow-up is essential for ongoing management and rehabilitation planning.[1] https://pubmed.ncbi.nlm.nih.gov/08200245 [3] https://pubmed.n i.nlm.nih.gov/13603651 [2] https://pubmed.ncbi.nlm.nih.gov/26248281 References * What Is the Patient-Reported Outcome and Complication Incidence After Op erative Versus Nonoperative Treatment of Minimally Displaced Tibial Plateau Fractures? https://pubmed.ncbi.nlm.nih.gov/50482112 . Aneudy Vargas TP, Kenyon MILIANSA, et al. Clinical Orthopaedics and Related Research. 2023;482(10):2685-5578. doi:10.1097/ELIAS.[id number]. * Tibial Plateau Fractures: Evaluation and Treatment https://pubmed.ncbi.nlm.nih.gov/13720425 . Cheli KJ, Kristi DL. The Journal of the [place] [employer]. 1995;3(2):86-94. doi:10.5435/[id number]. * Functional and Clinical Outcomes of Nonsurgically Managed Tibial Plateau Fractures https://pubmed.ncbi.nlm.nih.gov/44377775 . Sixto CA, Saleem A, Shahab A, et al. The Journal of the [place] [employer]. 2017;25(5):375-380. doi:10.5435/WPTJX-[email or web address]. Print Language: Citizen Of [place] Coding Level of Care Code ED Sheriffs Officer for Jose Noriega
[2025-05-24] MEDS: HYDROcodone-acetaminophen 7.5-325 mg Tablet 2 TAB PO (22:35)
== END 2025-05-24 22:38 | disposition home or self-care (01) ==
PROVIDERS: Emergency Provider Physician Assistant; PCP Family Medicine
DX: S82.142D Displaced bicondylar fracture of left tibia, subsequent encounter for closed fracture with routine healing (principal); Z79.4 Long term (current) use of insulin; F17.290 Nicotine dependence, other tobacco product, uncomplicated; E10.9 Type 1 diabetes mellitus without complications; X58.XXXD Exposure to other specified factors, subsequent encounter
CPT/HCPCS: 73562; 99283; J9999